=== PATIENT | female | born 1965 | race Caucasian/White ===

== ENCOUNTER 2016-09-28 12:22 | Observation (INO) ==
[2016-09-28] MEDS ORDERED: 0.9 % Sodium Chloride 1,000 ML IVC ONE (12:27)
--- NOTE | 2016-09-28 12:32 | Emergency Department Note ---
Overdose - [facility] Narrative Medical decision making narrative: Patient remains somnolent. She is protecting her airway. She does have a gag reflex intact. The patient is easily arousable upon tapping her feet and calling her name. We chose not to elevate the patient given the fact that she is protecting her airway, and is arousable. We will admit the patient to observation for further observation and psychiatric evaluation. Poison control was contacted and recommended supportive care as well as observation and psychiatric help. The patient was accepted by Georgette Pate NP. - Lab Data Lab results reviewed: Yes I reviewed the patient's lab results. Result diagrams: 09/28/16 12:53 09/28/16 12:53 Lab Results 09/28/16 09/28/16 09/28/16 Range/Units 12:38 12:38 12:38 WBC (4.3-11.1) K/mcL RBC (3.82-4.97) M/mcL Hgb (11.5-15.4) g/dL Hct (35.3-44.9) % MCV (83.0-100.0) fL MCH (28.0-33.3) pg MCHC (31.6-35.5) g/dL RDW (11.5-14.5) % Plt Count (140-400) K/mcL MPV (9.4-12.4) fL Immature Gran % (0-4) % Seg Neutrophils % % Lymphocytes % % Monocytes % % Eosinophils % % Basophils % % Neutrophils # (1.6-8.9) K/mcL Lymphocytes # (0.6-4.6) K/mcL Monocytes # (0.0-1.3) K/mcL Eosinophils # (0.0-0.6) K/mcL Basophils # (0.0-0.2) K/mcL Sodium (136-145) mEq/L Potassium (3.5-4.5) mEq/L Chloride (98-109) mEq/L Carbon Dioxide (19-29) mEq/L BUN (7-20) mg/dL Creatinine (0.57-1.11) mg/dL Est GFR ( Amer) (> 60) Est GFR (Non-Af Amer) (> 60) BUN/Creatinine Ratio (6-26) Glucose (70-99) mg/dL Calculated Osmolality (280-300) Calcium (8.6-10.8) mg/dL Total Bilirubin (0.2-1.2) mg/dL Direct Bilirubin (0.0-0.5) mg/dL Indirect Bilirubin (0.0-1.2) mg/dL AST (5-34) Units/L ALT (0-55) Units/L Alkaline Phosphatase (38-126) Units/L Serum Total Protein (6.0-8.3) g/dL Albumin (3.5-5.0) g/dL Globulin (2.4-3.5) g/dL Albumin/Globulin Ratio (1.1-2.2) Urine Color Yellow (Yellow) Urine Clarity Clear (Clear) Urine pH 6.5 (5.0-8.0) pH Units Ur Specific [place] 1.008 L (1.010-1.025) Urine Protein Negative (Neg-Trace) mg/dL Urine Glucose (UA) Normal (Normal) mg/dL Urine Ketones Negative (Negative) mg/dL Urine Blood Negative (Negative) Urine Nitrite Negative (Negative) Urine Bilirubin Negative (Negative) Urine Urobilinogen Normal (Normal) mg/dL Ur Leukocyte Esterase Negative (Negative) Urine Test Negative (Negative) Salicylates (15-30) mg/dL Urine Opiates Screen Negative (Bwmdum=258) ng/mL Acetaminophen (10-30) mcg/mL Ur Barbiturates Screen Negative (Ffgcyw=187) ng/mL Ur Phencyclidine Scrn Negative (Cutoff=25) ng/mL Ur Amphetamines Screen Negative (Jgxbjq=5287) ng/mL U Benzodiazepines Scrn Positive H (Humfot=578) ng/mL Urine Cocaine Screen Negative (Cutoff= 300) ng/mL U Marijuana (THC) Screen Negative (Cutoff = 50) ng/mL Ethyl Alcohol (0-10) mg/dL 09/28/16 09/28/16 Range/Units 12:53 12:53 WBC 5.4 (4.3-11.1) K/mcL RBC 4.27 (3.82-4.97) M/mcL Hgb 13.0 (11.5-15.4) g/dL Hct 38.9 (35.3-44.9) % MCV 91.1 (83.0-100.0) fL MCH 30.4 (28.0-33.3) pg MCHC 33.4 (31.6-35.5) g/dL RDW 13.2 (11.5-14.5) % Plt Count 179 (140-400) K/mcL MPV 10.4 (9.4-12.4) fL Immature Gran % 0.4 (0-4) % Seg Neutrophils % 74.1 % Lymphocytes % 19.4 % Monocytes % 5.0 % Eosinophils % 0.7 % Basophils % 0.4 % Neutrophils # 4.0 (1.6-8.9) K/mcL Lymphocytes # 1.1 (0.6-4.6) K/mcL Monocytes # 0.3 (0.0-1.3) K/mcL Eosinophils # 0.0 (0.0-0.6) K/mcL Basophils # 0.0 (0.0-0.2) K/mcL Sodium 140 (136-145) mEq/L Potassium 3.8 (3.5-4.5) mEq/L Chloride 109 (98-109) mEq/L Carbon Dioxide 24 (19-29) mEq/L BUN 12 (7-20) mg/dL Creatinine 0.94 (0.57-1.11) mg/dL Est GFR ( Amer) > 60 (> 60) Est GFR (Non-Af Amer) > 60 (> 60) BUN/Creatinine Ratio 13 (6-26) Glucose 130 H (70-99) mg/dL Calculated Osmolality 292 (280-300) Calcium 9.5 (8.6-10.8) mg/dL Total Bilirubin 0.2 (0.2-1.2) mg/dL Direct Bilirubin 0.1 (0.0-0.5) mg/dL Indirect Bilirubin 0.1 (0.0-1.2) mg/dL AST 13 (5-34) Units/L ALT 20 (0-55) Units/L Alkaline Phosphatase 105 (38-126) Units/L Serum Total Protein 7.4 (6.0-8.3) g/dL Albumin 3.7 (3.5-5.0) g/dL Globulin 3.7 H (2.4-3.5) g/dL Albumin/Globulin Ratio 1.0 L (1.1-2.2) Urine Color (Yellow) Urine Clarity (Clear) Urine pH (5.0-8.0) pH Units Ur Specific [place] (1.010-1.025) Urine Protein (Neg-Trace) mg/dL Urine Glucose (UA) (Normal) mg/dL Urine Ketones (Negative) mg/dL Urine Blood (Negative) Urine Nitrite (Negative) Urine Bilirubin (Negative) Urine Urobilinogen (Normal) mg/dL Ur Leukocyte Esterase (Negative) Urine Test (Negative) Salicylates < 5.0 L (15-30) mg/dL Urine Opiates Screen (Akjwiv=894) ng/mL Acetaminophen < 1.0 L (10-30) mcg/mL Ur Barbiturates Screen (Dzgdjv=120) ng/mL Ur Phencyclidine Scrn (Cutoff=25) ng/mL Ur Amphetamines Screen (Bwqzsy=9795) ng/mL U Benzodiazepines Scrn (Ktmmsg=827) ng/mL Urine Cocaine Screen (Cutoff= 300) ng/mL U Marijuana (THC) Screen (Cutoff = 50) ng/mL Ethyl Alcohol < 10 (0-10) mg/dL - EKG Data EKG attestation: Yes I reviewed and interpreted this EKG. EKG results narrative: Nonspecific ST changes. EKG shows normal: sinus rhythm, axis, intervals, QRS complexes Overdose HPI - General Chief Complaint: ED Overdose Stated Complaint: Overdose Time Seen by Provider: 09/28/16 12:27 Source: EMS Mode of arrival: EMS Limitations: altered mental status Nursing Notes Reviewed: Yes Vital Signs Reviewed: Yes - History of Present Illness HPI Narrative: 50-year-old female extensive history of overdose arrives [facility] emergency department after being found in the couch at roughly 5:30 this morning by her after the patient apparently took a handful of Xanax. The patient was asleep but was easily arousable. EMS arrived and stated the patient was easily arousable and woke her up very easily. The patient had no evidence of vomiting. The patient denies any taking any other medications. The patient states she only took a handful of Xanax was unsure of the amount. The patient has had previous overdose attempts in the past. The patient does state that she had a fight with her last night and that is why she took the medication. She is somnolent at this time but easily arousable. She is protecting her airway at this time. The patient takes 1 mg Xanax but is unsure the quantity in which she took. Pt Subjective Complaint: intentional overdose Onset (ago): hour(s) (7) Time of Ingestion: 05:00 Intent: suicide attempt Associated symptoms: depression Treatments Prior to Arrival: none - Related Data Home Medications Medication Instructions Recorded Confirmed Alprazolam [Xanax 1 MG Tablet] 1 mg PO BID PRN 09/28/16 09/28/16 Aripiprazole [Abilify] 20 mg PO DAILY 09/28/16 09/28/16 BuPROPion [Wellbutrin] 100 mg PO DAILY 09/28/16 09/28/16 Cholecalciferol (D-3) [Vitamin D] 2,000 unit PO DAILY 09/28/16 09/28/16 Desvenlafaxine Succinate [Pristiq 100 mg PO DAILY 09/28/16 09/28/16 ER] Fluticasone Propionate Nasal 50 mcg NS DAILY 09/28/16 09/28/16 [Flonase] Fluticasone/Salmeterol [Advair 1 puff IH BID 09/28/16 09/28/16 250-50 Diskus] Gabapentin [Neurontin] 300 mg PO QAM 09/28/16 09/28/16 Gabapentin [Neurontin] 600 mg PO HS 09/28/16 09/28/16 Lamotrigine [Lamictal] 100 mg PO HS 09/28/16 09/28/16 Levothyroxine [Synthroid] 50 mcg PO DAILY 09/28/16 09/28/16 Meloxicam [Mobic] 15 mg PO DAILY 09/28/16 09/28/16 Montelukast [Singulair] 10 mg PO DAILY 09/28/16 09/28/16 Propranolol [Inderal] 10 mg PO TID 09/28/16 09/28/16 Quetiapine Fumarate [SEROquel] 100 mg PO HS 09/28/16 09/28/16 Ranitidine HCl [Acid [employer]] 150 mg PO BID 09/28/16 09/28/16 Topiramate [Topamax] 100 mg PO BID 09/28/16 09/28/16 Allergies Allergy/AdvReac Type Severity Reaction Status Date / Time aspirin Allergy Hives Verified 09/28/16 12:36 Penicillins Allergy Anaphylaxis Verified 09/28/16 12:36 Limitations: ROS unobtainable due to patients medical condition Past Medical History - Past Medical History Attestation: Yes The following information was validated with the patient. Medical history: Reports: asthma Surgical history: Reports: hysterectomy, other Psychiatric history: Reports: anxiety, bipolar, depression, prior suicide attempt - Social History Smoking Status: Current every day smoker Smokeless Tobacco Status: Yes Alcohol use: Reports: none Drug use: Reports: none Physical Exam Physical Exam: General: no acute distress, not lethargic, patient is somnolent. Patient is protecting airway this time. She is following commands and answering some questions correctly. HEENT: Head normal inspection, atraumatic, PERRLA, oropharynx grossly intact and normal, trachea midline, no JVD Chest: Nontraumatic, nontender, normal chest rise CV: RRR with no murmurs, rubs, gallops Respiratory: Lungs clear to auscultation bilaterally, no rales, rhonchi, wheezes. Abdomen: Normal inspection, Normal bowel sounds 4 quadrants, nontender to palpation : Patient deferred Extremities: Normal inspection, full range of motion, appropriate pulses, capillary refill under 2 seconds Neurological: Patient somnolent, cranial nerves II through XII grossly intact, GCS 13 for eyes to voice and speech. Skin: Warm, intact, no rashes noted Course - Reevaluation(s) Reevaluation #1: Spoke with Dany at [facility]. No further recommendations other than supportive care and basic laboratory tests. Time: 13:13 Vital Signs Temperature 97.7 F 09/28/16 12:24 Pulse Rate 71 09/28/16 12:24 Respiratory Rate 16 09/28/16 12:24 Blood Pressure 134/95 09/28/16 12:24 O2 Sat by Pulse Oximetry 100 09/28/16 12:24 Temperature 97.7 F 09/28/16 12:24 Pulse Rate 74 09/28/16 14:46 Respiratory Rate 15 09/28/16 14:46 Blood Pressure 133/100 09/28/16 14:46 O2 Sat by Pulse Oximetry 100 09/28/16 14:46 Oxygen Delivery Oxygen Delivery Nasal Cannula Disposition Clinical Impression: Benzodiazepine overdose Qualifiers: Encounter type: initial encounter Injury intent: intentional self-harm Qualified Code(s): T42.4X2A - Poisoning by benzodiazepines, intentional self- harm, initial encounter Disposition: Admitted As Inpatient Condition: Undetermined Referrals: NO,PCP [Primary Care Provider] - Forms: ED Satisfaction Letter Time of Disposition: 15:06 Attestation Statement - Attestation Attestation: I examined this patient and my medical decision-making was reviewed with the INVESTMENT EXECUTIVE/PA/Advanced Practice Nurse/Resident Physician. I agree with the documented findings, disposition and treatment plan as described except to the extent set forth below. Patient to the emergency department with a chief complaint of intentional overdose. Per EMS this is her fifth suicide attempt. Took "a handful" of Xanax. On exam she is awake. Drowsy but arousable. Heart regular lungs clear. Plan. Supportive care. We will admit.
[2016-09-28 13:01] LABS: Amphetamine Screen,Urine Negative ng/mL (Cutoff=1000); Barbiturate Screen,Urine Negative ng/mL (Cutoff=200); Benzodiazepines Screen,Urine Positive ng/mL (Cutoff=200); Cannabinoid Screen,Urine Negative ng/mL (Cutoff = 50); Cocaine Screen,Urine Negative ng/mL (Cutoff= 300); Opiate Screen,Urine Negative ng/mL (Cutoff=300); Phencyclidine Screen,Urine Negative ng/mL (Cutoff=25)
[2016-09-28 13:04] LABS: Bilirubin,Urine Negative (Negative); Blood,Urine Negative (Negative); Clarity,Urine Clear (Clear); Color,Urine Yellow (Yellow); Glucose,Urine (UA) Normal (Normal); Ketones,Urine Negative (Negative); Leukocyte Esterase,Urine Negative (Negative); Nitrite,Urine Negative (Negative); PH,Urine 6.5 pH Units (5.0-8.0); Protein,Urine Negative (Neg-Trace); Specific Gravity,Urine 1.008 (1.010-1.025); Urobilinogen,Urine Normal (Normal)
[2016-09-28 13:06] LABS: Basophils % 0.4 %; Eosinophils % 0.7 %; Hematocrit 38.9 % (35.3-44.9); Immature Granulocytes % 0.4 % (0-4); Lymphocytes # 1.1 K/mcL (0.6-4.6); Lymphocytes % 19.4 %; Mean Corpuscular HGB Conc 33.4 g/dL (31.6-35.5); Mean Corpuscular Hemoglobin 30.4 pg (28.0-33.3); Mean Corpuscular Volume 91.1 fL (83.0-100.0); Mean Platelet Volume 10.4 fL (9.4-12.4); Monocytes # 0.3 K/mcL (0.0-1.3); Platelet Count 179 K/mcL (140-400); Red Blood Count 4.27 M/mcL (3.82-4.97); Red Cell Distribution Width 13.2 % (11.5-14.5); Segmented Neutrophils % 74.1 %
[2016-09-28 13:26] LABS: Alanine Aminotransferase 20 Units/L (0-55); Albumin 3.7 g/dL (3.5-5.0); Alkaline Phosphatase 105 Units/L (38-126); Aspartate Amino Transferase 13 Units/L (5-34); BUN/Creatinine Ratio 13 (6-26); Bilirubin,Direct 0.1 mg/dL (0.0-0.5); Bilirubin,Indirect 0.1 mg/dL (0.0-1.2); Bilirubin,Total 0.2 mg/dL (0.2-1.2); Blood Urea Nitrogen 12 mg/dL (7-20); Calcium 9.5 mg/dL (8.6-10.8); Carbon Dioxide 24 mEq/L (19-29); Chloride 109 mEq/L (98-109); Globulin 3.7 g/dL (2.4-3.5); Glucose 130 mg/dL (70-99); Osmolality,Calculated 292 (280-300); Potassium 3.8 mEq/L (3.5-4.5); Sodium 140 mEq/L (136-145); Total Protein 7.4 g/dL (6.0-8.3); eGFR For African Americans > 60 (> 60); eGFR For Non-African Americans > 60 (> 60)
[2016-09-28 13:28] LABS: Acetaminophen < 1.0 mcg/mL (10-30); Ethanol < 10 mg/dL (0-10); Salicylate < 5.0 mg/dL (15-30)
[2016-09-28] MEDS ORDERED: Naloxone 0.4 MG/ML INJ IVP PRN (16:01)
[2016-09-28] MEDS ORDERED: Ondansetron 4 MG/2 ML VIAL IVP PRN (16:01)
--- NOTE | 2016-09-28 16:44 | Internal Med History&Physical ---
<PolinamatthieujeffManuel simmons - Last Filed: 09/28/16 18:30> Date of Encounter: 09/28/16 Time of Encounter: 16:20 Assessment and Plan (1) Benzodiazepine overdose Current visit: Yes Status: Acute Pt. will receive supportive care with emphasis on patent airway and O2 administration with titration if SpO2 falls below 92%. Patient placed as NPO due to current altered mental status and risk for aspiration. Aspiration precautions initiated. Falls prevention precautions initiated. Patient's meds held. Sitter ordered for patient due to suicidal ideations and attempt. Routine EKG monitoring ordered for 09/29/16 in a.m. Psych consult ordered due to patient' s history of five suicide attempts. Qualifiers: Encounter type: initial encounter Injury intent: intentional self-harm Qualified Code(s): T42.4X2A - Poisoning by benzodiazepines, intentional self- harm, initial encounter (2) Suicidal ideations Current visit: Yes Status: Chronic Past history of five suicide attempts. Patient placed on suicide watch and psych consult ordered. (3) Anxiety associated with depression Current visit: Yes Status: Chronic Pt. has past history of anxiety, depression, bipolar disorder, and suicidal ideations/attempts. Pt. will be managed by psych team/provider(s). Internal Medicine - H&P: HPI Chief complaint: Overdose Admitted From: Emergency Dept Plans for Post Hospital Care: Transfer Psych Facility History of present illness: Jana Allen is a 50 year-old female with a history of anxiety, bipolar depression, depression, and prior suicide attempt who presents from the ED to observation admission status on 09/28/16 due to overdose on benzodiazepines. Patient's pupils equal, round, reactive to light and accommodation. Upon initial encounter for assessment, patient presents with altered mental status and somnolence so limited information was able to be obtained during the initial interview. Patient reports she does not recall what happened that caused her to come to the hospital. Pt. was able to correctly state her name, her age, and what month it is. Pt. has been placed on 2L of O2 with titration if SpO2 falls below 92%. IV fluids (0.9% NS) ordered at 75 mL/hr. Cardiac monitoring has been ordered due to overdose status. Pt. has been placed as NPO and all meds have been held until her lethargy and somnolence subside and further assessment can be completed. Pt. is also under suicide observation with an ordered sitter due to overdose. Consult for psych evaluation ordered. New EKG ordered for 09/29/16 in a.m. Discussed case with Dr. Owen. Past Med Surg Social Fam HX - Past Medical History Source: obtained from family Medical history: asthma, GERD Psychiatric history: anxiety, bipolar, depression, prior suicide attempt - Past Surgical History Surgical History: hysterectomy, other - Social History Smoking Status: Current every day smoker Packs per day: 1/4 to 1/2 pack per day Smokeless Tobacco Status: Yes Alcohol use: none Drug use: none Occupational status: unemployed Current living situation: With Family Activity Level: Independent ambulation Recent Out of Country Travel Within the Last 8 Weeks: No Exposure or Possible Exposure to Illness During Travel: No - Family History Mother Living Status: Hx Family Endocrine Disorder: Yes (kidney failure) Internal Medicine - H&P: Meds Alprazolam [Xanax 1 MG Tablet] 1 mg PO BID PRN 09/28/16 [History] Aripiprazole [Abilify] 20 mg PO DAILY 09/28/16 [History] BuPROPion [Wellbutrin] 100 mg PO DAILY 09/28/16 [History] Cholecalciferol (D-3) [Vitamin D] 2,000 unit PO DAILY 09/28/16 [History] Desvenlafaxine Succinate [Pristiq ER] 100 mg PO DAILY 09/28/16 [History] Fluticasone Propionate Nasal [Flonase] 50 mcg NS DAILY 09/28/16 [History] Fluticasone/Salmeterol [Advair 250-50 Diskus] 1 puff IH BID 09/28/16 [History] Gabapentin [Neurontin] 300 mg PO QAM 09/28/16 [History] Gabapentin [Neurontin] 600 mg PO HS 09/28/16 [History] Lamotrigine [Lamictal] 100 mg PO HS 09/28/16 [History] Levothyroxine [Synthroid] 50 mcg PO DAILY 09/28/16 [History] Meloxicam [Mobic] 15 mg PO DAILY 09/28/16 [History] Montelukast [Singulair] 10 mg PO DAILY 09/28/16 [History] Propranolol [Inderal] 10 mg PO TID 09/28/16 [History] Quetiapine Fumarate [SEROquel] 100 mg PO HS 09/28/16 [History] Ranitidine HCl [Acid [place]] 150 mg PO BID 09/28/16 [History] Topiramate [Topamax] 100 mg PO BID 09/28/16 [History] Allergies aspirin Allergy (Verified 09/28/16 12:36) Hives Penicillins Allergy (Verified 09/28/16 12:36) Anaphylaxis ROS unobtainable: due to mental status All Systems PM: A 10-system review of systems was performed and is negative for pertinent findings except as documented above in the HPI. - Constitutional Constitutional: lethargy Additional comments: Patient currently exhibits lethargy and somnolence due to overdose. - EENT Additional comments: Pt. eyes examined and positive for PERRLA. Additional comments: Pt. exhibits decreased ability to hear due to lethargy and somnolence related to overdose. Nose, mouth and throat: no dysphagia, no nasal discharge, no neck pain, no sore throat Additional comments: Pt. soft-spoken at the present time due to lethargy and somnolence related to overdose. - Cardiovascular Cardiovascular ROS IM: no chest pain, no diaphoresis, no dyspnea, no lightheadedness, no palpitations, no syncope Additional comments: Cardiovascular examination revealed no abnormal heart sounds or arrhythmias. - Respiratory Additional comments: Pt. breathing even, shallow, and unlabored due to lethargy and somnolence related to overdose. Pt. placed on 2L of O2 with titration order if SpO2 falls below 92%. Aspiration protocol ordered. Pt. reports occasional SOB with exertion. - Gastrointestinal Gastrointestinal: no abdominal pain, no diarrhea, no hematemesis, no hematochezia, no melena, no nausea, no vomiting - Genitourinary Genitourinary: no change in urinary stream, no dysuria, no flank pain, no hematuria Additional comments: Urinary catheter placed due to altered mental status related to overdose. - Musculoskeletal Musculoskeletal ROS IM: no numbness, no tingling - Integumentary Integumentary IM: no rash, no unusual bruising - Neurological Neurological ROS: abnormal hearing, abnormal speech, lack of coordination, restless legs, weakness Additional comments: Abnormal speech and hearing deficits due to overdose and current altered mental status. - Psychiatric Psychiatric: anxiety, depression, suicidal ideation Additional comments: Patient has positive history of anxiety, depression, bipolar depression, and previous suicidal ideations and attempts. Pt. has attempted suicide a total of five times within the past ten years. These attempts have consisted of two overdoses and three self-harm attempts by cutting her wrists. Patient's last suicide attempt was four years ago when she slit her wrists. Previous four attempts where done when others were present or nearby. Current attempt was done when she was alone at home. - Endocrine Endocrine IM: as per HPI - Hematologic/Lymphatic Hematologic/Lymphatic: no easy bruising - Allergic/Immunologic Allergic/Immunologic: as per HPI Additional comments: Pt. reports she has asthma during summer months and uses inhaler PRN. - Constitutional Vitals: Temp Pulse Resp BP Pulse Ox 97.7 F 71 16 124/70 98 09/28/16 15:46 09/28/16 15:46 09/28/16 15:46 09/28/16 15:46 09/28/16 15:46 General appearance: Present: A&O X 3, no acute distress - Head Head exam: Present: atraumatic, normocephalic - Eye Eye exam: Present: PERRL, conjuntiva pink, sclera anicteric Pupils: Present: PERRL - Expanded ENT Exam Mouth exam: Present: muffled voice, tongue normal Teeth exam: Present: normal external inspection - Neck Neck exam general surgery: Present: supple, trachea midline. Absent: lymphadenopathy - Respiratory Respiratory exam: Present: CTAB. Absent: accessory muscle use, rales, rhonchi, wheezes - Cardiovascular Cardiovascular exam: Present: RRR, +S1, +S2. Absent: diastolic murmur, gallop, rubs, systolic murmur - GI/Abdominal GI/Abdominal exam: Present: normal bowel sounds, soft, no peritoneal signs. Absent: distended, tenderness - Rectal Rectal exam: Present: deferred - Extremities Exam Extremities exam: Present: radial pulses palpable and symetrical - Neurological Exam Neurological exam: Present: oriented X3 Additional comments: Pt. appears somnolent due to overdose. Answers some questions without assistance. A&O x3. - Expanded Neurological Exam Neurological exam expanded: Present: protecting the airway - Psychiatric Psychiatric exam: Present: suicidal ideation - Skin Skin exam: Present: dry, intact - Other Additional findings: Patient's responses to assessment and questions is limited due to altered mental status and somnolence. Family was present to answer questions as well. Internal Med - H&P Results - Labs CBC & Chem 7: 09/28/16 12:53 09/28/16 12:53 - EKG Data EKG shows normal: sinus rhythm - EKG Data Prior EKG available for review: no EKG comments: 09/28/16 18:02 Sinus rhythm with nonspecific t-wave abnormality. Repeat EKG ordered for a.m. - VTE Reasons for not Prescribing Prophylaxis: Treatment not Indicated - Low risk for VTE <Herson Owen - Last Filed: 09/28/16 19:05> Internal Medicine - H&P: HPI History of present illness: Ms. Allen is a 50 year old female All Systems PM: A 10-system review of systems was performed and is negative for pertinent findings except as documented above in the HPI. - Constitutional Vitals: Temp Pulse Resp BP Pulse Ox 98.0 F 73 14 111/75 99 09/28/16 18:30 09/28/16 18:30 09/28/16 18:30 09/28/16 18:30 09/28/16 18:30 Internal Med - H&P Results - Labs CBC & Chem 7: 09/28/16 12:53 09/28/16 12:53 - Attending Attestation I examined this patient and my medical decision-making was reviewed with the Advanced Practice Nurse on 09/28/16. I agree with the documented findings, disposition and treatment plan as described except to the extent set forth below. Ms. Allen is a 50 y/o female with hx of multiple prior suicide attempts brought to ED after taking OD of Xanax. Pt currently is arousable but will not speak with me. According to chart she was attempting to commit suicide. Exam Arousable Mucus membranes dry Heart reg Lungs clear I/P 1. OD of Xanax 2. Suicide attempt Further diagnoses and plan as detailed above.
[2016-09-28] MEDS: 0.9 % Sodium Chloride 1,000 ML IVC SCH (17:12)
[2016-09-29 04:52] LABS: Basophils % 0.4 %; Eosinophils # 0.1 K/mcL (0.0-0.6); Eosinophils % 1.3 %; Hematocrit 35.3 % (35.3-44.9); Immature Granulocytes % 0.4 % (0-4); Lymphocytes # 1.4 K/mcL (0.6-4.6); Mean Corpuscular HGB Conc 31.2 g/dL (31.6-35.5); Mean Corpuscular Hemoglobin 28.8 pg (28.0-33.3); Mean Corpuscular Volume 92.4 fL (83.0-100.0); Mean Platelet Volume 10.3 fL (9.4-12.4); Monocytes # 0.4 K/mcL (0.0-1.3); Monocytes % 8.1 %; Neutrophils # 3.4 K/mcL (1.6-8.9); Platelet Count 165 K/mcL (140-400); Red Blood Count 3.82 M/mcL (3.82-4.97); Red Cell Distribution Width 13.2 % (11.5-14.5); Segmented Neutrophils % 63.8 %
[2016-09-29 05:06] LABS: BUN/Creatinine Ratio 16 (6-26); Blood Urea Nitrogen 12 mg/dL (7-20); Calcium 8.7 mg/dL (8.6-10.8); Carbon Dioxide 23 mEq/L (19-29); Chloride 111 mEq/L (98-109); Glucose 95 mg/dL (70-99); Osmolality,Calculated 292 (280-300); Potassium 3.5 mEq/L (3.5-4.5); Sodium 141 mEq/L (136-145); eGFR For African Americans > 60 (> 60); eGFR For Non-African Americans > 60 (> 60)
[2016-09-29] MEDS: 0.9 % Sodium Chloride 1,000 ML IVC SCH (06:54)
[2016-09-29 11:33] VITALS: BP 92/64
--- NOTE | 2016-09-29 11:43 | Consult Note ---
Date of Encounter: 09/29/16 Time of Encounter: 11:30 Assessment & Recommendation (1) Major depressive disorder, recurrent episode Current visit: Yes Status: Acute Assessment & Recommendation: Patient has a long-standing history of depression with multiple suicide attempts. Given that the circumstances are unclear and the patient seems to be less than forthcoming about her reasons behind taking the meds I would recommend admission to 1 a for observation. Continue sitter until patient can be transferred down to the psychiatric unit. Qualifiers: Major depression episode severity: moderate Qualified Code(s): F33.1 - Major depressive disorder, recurrent, moderate (2) Anxiety Current visit: Yes Status: Chronic Assessment & Recommendation: Consider restarting Xanax at lower dose, 0.5 twice a day the patient does not have withdrawal but we prevent patient having oversedation considering she overdosed on this medicine. (3) Personality disorder Current visit: Yes Status: Chronic Assessment & Recommendation: We will encourage patient to attend groups when on the unit. Likely contact patient's outpatient provider for more information on Friday when the office is open. History of Present Illness Patient: new to practice Requesting Physician: Lacie Fagan Reason for consult: Overdose History of present illness: Ms. Allen is a 50 year old female CC: Lacie Fagan Past Med Surg Social Fam HX - Past Medical History Medical history: asthma - Past Psychiatric History Psychiatric history: Reports: depression, prior suicide attempt, previous psychiatric hospitalization Past psychiatric history details: Patient is currently in treatment at the [facility]. She does have a DrKyle mullins who prescribes all of her psych meds. She reports taking Seroquel, Pristiq, propanolol. As well as Xanax. She has a previous psychiatric admission in multiple suicide attempts in the past. Last admission was in 2010. At that point she attempted to cut her wrists as well as overdose. Today she presents after a suicide attempt. She is on the medical floor has been cleared medically for an overdose of an unknown amount of Xanax. Patient reports that she did have an argument with her about the finances. They have been struggling financially recently and patient reports that her had had a few drinks and they were yelling at each other. Patient and both report no physical violence. Patient states that she was upset by this argument but she does not remember feeling suicidal or overly depressed. She does not remember taking the pills. Patient denies suicidal ideation now. She feels her medications worked fairly well. She would prefer not to go to the psychiatric floor at this time. However, patient cannot really verbalize what has changed since her argument with her . Of note, patient's reported meds are different from the med reported on her med list. OARRS report was pulled by staff on 3B and reviewed by this provider. It does appear appropriate and patient is being prescribed 1 mg of Xanax twice a day. Spoke with who is present at the hospital with the patient. He is concerned about patient's action and well aware of her past psychiatric history. He denies that the patient was making any kind of statements that she would hurt herself. She does know that she has attempted in the past and has required psychiatric admission. He is upset because he thinks the argument may have led to her hurting herself. He does report that he is not sure if the Xanax is working appropriately because when she takes 2 a day she still feels anxious but when she was taking 3 a day she was overly sedated. reports that the patient usually talks with her daughters all morning on the phone until he gets back from work at noon. He found her because his daughter called to let him know that they were out of contact which is abnormal for the patient. came home early to find her collapse next to the dryer. Family psychiatric history: No Family History of Suicide: None - Past Surgical History Surgical History: hysterectomy, other - Social History Smoking Status: Current every day smoker Smokeless Tobacco Status: Yes Alcohol use: none Drug use: none - Family History Mother Living Status: Hx Family Endocrine Disorder: Yes (kidney failure) Medications & Allergies Alprazolam [Xanax 1 MG Tablet] 1 mg PO BID PRN 09/28/16 [History] Aripiprazole [Abilify] 20 mg PO DAILY 09/28/16 [History] BuPROPion [Wellbutrin] 100 mg PO DAILY 09/28/16 [History] Cholecalciferol (D-3) [Vitamin D] 2,000 unit PO DAILY 09/28/16 [History] Desvenlafaxine Succinate [Pristiq ER] 100 mg PO DAILY 09/28/16 [History] Fluticasone Propionate Nasal [Flonase] 50 mcg NS DAILY 09/28/16 [History] Fluticasone/Salmeterol [Advair 250-50 Diskus] 1 puff IH BID 09/28/16 [History] Gabapentin [Neurontin] 300 mg PO QAM 09/28/16 [History] Gabapentin [Neurontin] 600 mg PO HS 09/28/16 [History] Lamotrigine [Lamictal] 100 mg PO HS 09/28/16 [History] Levothyroxine [Synthroid] 50 mcg PO DAILY 09/28/16 [History] Meloxicam [Mobic] 15 mg PO DAILY 09/28/16 [History] Montelukast [Singulair] 10 mg PO DAILY 09/28/16 [History] Propranolol [Inderal] 10 mg PO TID 09/28/16 [History] Quetiapine Fumarate [SEROquel] 100 mg PO HS 09/28/16 [History] Ranitidine HCl [Acid Circus Laborer] 150 mg PO BID 09/28/16 [History] Topiramate [Topamax] 100 mg PO BID 09/28/16 [History] Allergies aspirin Allergy (Verified 09/28/16 12:36) Hives Penicillins Allergy (Verified 09/28/16 12:36) Anaphylaxis Review of Systems Constitutional: Denies: fever, chills, weakness, weight change Eyes: Denies: eye pain, vision change Ears, Nose, Throat: Denies: ear pain, throat pain, dental pain, hearing loss, congestion Cardiovascular: Denies: chest pain, palpitations, dyspnea on exertion Respiratory: Denies: cough, dyspnea, wheezes Gastrointestinal: Denies: abdominal pain, nausea, vomiting, diarrhea, constipation Genitourinary male: Denies: urgency, dysuria, frequency, genital lesions Genitourinary female: Denies: urgency, dysuria, frequency, abnormal menses, dyspareunia Musculoskeletal: Denies: joint swelling, joint pain Integumentary: Denies: rash, lesions, pruritus Neurological: Denies: headache, weakness, numbness, memory loss Psychiatric: Reports: depression, anxiety. Denies: abnormal sleep pattern, suicidal ideation, homicidal ideation, auditory hallucinations, visual hallucinations, anhedonia, difficulty concentrating, hopelessness, irritability , mood swings, panic attacks Endocrine: Denies: fatigue, heat or cold intolerance Hematologic/Lymphatic: Denies: easy bruising, lymphadenopathy Allergic/Immunologic: Denies: urticaria, itchy eyes Mental Status Exam Patient orientation: Yes Person, Yes Time, Yes Place Level of alertness: Alert Patient appearance: Unkempt Behavior: cooperative, nervous Psychomotor activity: Normal Eye contact: Minimal Contact Mood description: Euthymic/stable Affect description: dysphoric Speech pattern: Normal rate, Normal rhythm, Normal tone Speech volume: Soft/Quiet Thought process: Intact, Linear Thought content: No Suicidal ideation, No Homicidal ideation Perceptual disturbances: No Auditory hallucinations, No Visual hallucinations Attention span: Capable of Focused Attention Memory description: Grossly Intact Patient reliability: Reliable Historian Intelligence estimate: Average Judgment: Limited Insight: Partial Results - Vital Signs Vital signs: Temp Pulse Resp BP Pulse Ox 98.0 F 85 17 92/64 98 09/29/16 11:31 09/29/16 11:31 09/29/16 11:31 09/29/16 11:31 09/29/16 11:31 - Labs Labs: Laboratory Last Values WBC 5.3 K/mcL (4.3-11.1) 09/29/16 04:01 RBC 3.82 M/mcL (3.82-4.97) 09/29/16 04:01 Hgb 11.0 g/dL (11.5-15.4) L D 09/29/16 04:01 Hct 35.3 % (35.3-44.9) 09/29/16 04:01 MCV 92.4 fL (83.0-100.0) 09/29/16 04:01 MCH 28.8 pg (28.0-33.3) 09/29/16 04:01 MCHC 31.2 g/dL (31.6-35.5) L 09/29/16 04:01 RDW 13.2 % (11.5-14.5) 09/29/16 04:01 Plt Count 165 K/mcL (140-400) 09/29/16 04:01 MPV 10.3 fL (9.4-12.4) 09/29/16 04:01 Immature Gran % 0.4 % (0-4) 09/29/16 04:01 Seg Neutrophils % 63.8 % 09/29/16 04:01 Lymphocytes % 26.0 % 09/29/16 04:01 Monocytes % 8.1 % 09/29/16 04:01 Eosinophils % 1.3 % 09/29/16 04:01 Basophils % 0.4 % 09/29/16 04:01 Neutrophils # 3.4 K/mcL (1.6-8.9) 09/29/16 04:01 Lymphocytes # 1.4 K/mcL (0.6-4.6) 09/29/16 04:01 Monocytes # 0.4 K/mcL (0.0-1.3) 09/29/16 04:01 Eosinophils # 0.1 K/mcL (0.0-0.6) 09/29/16 04:01 Basophils # 0.0 K/mcL (0.0-0.2) 09/29/16 04:01 Sodium 141 mEq/L (136-145) 09/29/16 04:01 Potassium 3.5 mEq/L (3.5-4.5) 09/29/16 04:01 Chloride 111 mEq/L (98-109) H 09/29/16 04:01 Carbon Dioxide 23 mEq/L (19-29) 09/29/16 04:01 BUN 12 mg/dL (7-20) 09/29/16 04:01 Creatinine 0.76 mg/dL (0.57-1.11) 09/29/16 04:01 Est GFR ( Amer) > 60 (> 60) 09/29/16 04:01 Est GFR (Non-Af Amer) > 60 (> 60) 09/29/16 04:01 BUN/Creatinine Ratio 16 (6-26) 09/29/16 04:01 Glucose 95 mg/dL (70-99) 09/29/16 04:01 POC Glucose 104 (58-89) H 09/29/16 06:18 Calculated Osmolality 292 (280-300) 09/29/16 04:01 Calcium 8.7 mg/dL (8.6-10.8) 09/29/16 04:01 Total Bilirubin 0.2 mg/dL (0.2-1.2) 09/28/16 12:53 Direct Bilirubin 0.1 mg/dL (0.0-0.5) 09/28/16 12:53 Indirect Bilirubin 0.1 mg/dL (0.0-1.2) 09/28/16 12:53 AST 13 Units/L (5-34) 09/28/16 12:53 ALT 20 Units/L (0-55) 09/28/16 12:53 Alkaline Phosphatase 105 Units/L (38-126) 09/28/16 12:53 Serum Total Protein 7.4 g/dL (6.0-8.3) 09/28/16 12:53 Albumin 3.7 g/dL (3.5-5.0) 09/28/16 12:53 Globulin 3.7 g/dL (2.4-3.5) H 09/28/16 12:53 Albumin/Globulin Ratio 1.0 (1.1-2.2) L 09/28/16 12:53 Urine Color Yellow (Yellow) 09/28/16 12:38 Urine Clarity Clear (Clear) 09/28/16 12:38 Urine pH 6.5 pH Units (5.0-8.0) 09/28/16 12:38 Ur Specific [place] 1.008 (1.010-1.025) L 09/28/16 12:38 Urine Protein Negative mg/dL (Neg-Trace) 09/28/16 12:38 Urine Glucose (UA) Normal mg/dL (Normal) 09/28/16 12:38 Urine Ketones Negative mg/dL (Negative) 09/28/16 12:38 Urine Blood Negative (Negative) 09/28/16 12:38 Urine Nitrite Negative (Negative) 09/28/16 12:38 Urine Bilirubin Negative (Negative) 09/28/16 12:38 Urine Urobilinogen Normal mg/dL (Normal) 09/28/16 12:38 Ur Leukocyte Esterase Negative (Negative) 09/28/16 12:38 Urine Test Negative (Negative) 09/28/16 12:38 Salicylates < 5.0 mg/dL (15-30) L 09/28/16 12:53 Urine Opiates Screen Negative ng/mL (Uiaeyq=715) 09/28/16 12:38 Acetaminophen < 1.0 mcg/mL (10-30) L 09/28/16 12:53 Ur Barbiturates Screen Negative ng/mL (Pwtocn=391) 09/28/16 12:38 Ur Phencyclidine Scrn Negative ng/mL (Cutoff=25) 09/28/16 12:38 Ur Amphetamines Screen Negative ng/mL (Mjipqc=8920) 09/28/16 12:38 U Benzodiazepines Scrn Positive ng/mL (Bflyde=058) H 09/28/16 12:38 Urine Cocaine Screen Negative ng/mL (Cutoff= 300) 09/28/16 12:38 U Marijuana (THC) Screen Negative ng/mL (Cutoff = 50) 09/28/16 12:38 Ethyl Alcohol < 10 mg/dL (0-10) 09/28/16 12:53 Consult Discharge Plan - Plan Referrals: NO,PCP [Primary Care Provider] -
--- NOTE | 2016-09-29 13:42 | Discharge Summary ---
Date of Encounter: 09/29/16 Time of Encounter: 10:30 - Discharge Diagnosis (1) Benzodiazepine overdose Priority: Primary Status: Acute Comments: Patient was alert and oriented 3 during this admission. She states she does not remember overdosing or what happened afterwards. She denied active suicidal or homicidal ideations at time of discharge, sending down to inpatient psychiatry. Qualifiers: Encounter type: initial encounter Injury intent: intentional self-harm Qualified Code(s): T42.4X2A - Poisoning by benzodiazepines, intentional self- harm, initial encounter (2) Suicidal ideations Priority: Primary Status: Resolved Comments: Patient denied suicidal ideation at time of discharge, but states she has attempted suicide several times in the past most recently 4-5 years ago. (3) Anxiety associated with depression Priority: Secondary Status: Chronic (4) History of attempted suicide Priority: Secondary Status: Chronic (5) Major depressive disorder, recurrent episode Priority: Primary Status: Acute Qualifiers: Major depression episode severity: moderate Qualified Code(s): F33.1 - Major depressive disorder, recurrent, moderate (6) Anxiety Priority: Secondary Status: Chronic (7) Personality disorder Priority: Secondary Status: Chronic - Discharge Medications Home Medications: Alprazolam [Xanax 1 MG Tablet] 1 mg PO BID PRN 09/28/16 [History] Aripiprazole [Abilify] 20 mg PO DAILY 09/28/16 [History] BuPROPion [Wellbutrin] 100 mg PO DAILY 09/28/16 [History] Cholecalciferol (D-3) [Vitamin D] 2,000 unit PO DAILY 09/28/16 [History] Desvenlafaxine Succinate [Pristiq] 100 mg PO DAILY 09/28/16 [History] Fluticasone Propionate Nasal [Flonase] 50 mcg NS DAILY 09/28/16 [History] Fluticasone/Salmeterol [Advair 250-50 Diskus] 1 puff IH BID 09/28/16 [History] Gabapentin [Neurontin] 300 mg PO QAM 09/28/16 [History] Gabapentin [Neurontin] 600 mg PO HS 09/28/16 [History] Lamotrigine [Lamictal] 100 mg PO HS 09/28/16 [History] Levothyroxine [Synthroid] 50 mcg PO DAILY 09/28/16 [History] Meloxicam [Mobic] 15 mg PO DAILY 09/28/16 [History] Montelukast [Singulair] 10 mg PO DAILY 09/28/16 [History] Propranolol [Inderal] 10 mg PO TID 09/28/16 [History] Quetiapine Fumarate [Seroquel] 100 mg PO HS 09/28/16 [History] Ranitidine HCl [Acid Plastic Surgery Technician] 150 mg PO BID 09/28/16 [History] Topiramate [Topamax] 100 mg PO BID 09/28/16 [History] Allergies/Adverse Reactions: Allergies aspirin Allergy (Verified 09/28/16 12:36) Hives Penicillins Allergy (Verified 09/28/16 12:36) Anaphylaxis Procedures/tests Complete & Pending: Procedures Performed prior 72 hours Category Date Time Status ECG 12 lead ECG [ECG] AM 0600 Y 09/29/16 06:00 Completed Date of admission: 09/28/16 15:15 Primary care physician: PCP NO Consults: 09/28/16 16:05 Consult to Psychiatry [CONS] Routine Consulting Provider: Psychiatry [place] Reason for Consult: Overdose, suicidal ideations Time Notified: 16:05 Call Completed: Yes Discharging clinician: Lacie Broussard Anticipated date of discharge: 09/29/16 (sending to inpatient psych 1A) - Patient Status Disposition: Transfer Psychiatric Hosp Condition: Fair Functional capacity at discharge: independent ambulation Overall status at discharge: patient is progressing back to baseline - Discharge Instructions Follow Up With: Melida Montez MD [Partnered Physician] - Additional Instructions: Follow-up with primary care provider and psychiatrist as needed - Diet and Activity Activity: increase activity as tolerated Diet: regular diet Hospital course: Ms. Allen is a 50 year old female with past medical history bipolar disorder, multiple prior suicide attempts. Patient presented to the emergency department chief complaint altered mental status secondary to overdose on her Xanax. Patient was somnolent upon presentation and was admitted to the hospitalist service for further evaluation and management. She was alert and oriented 3 during her admission. She denied current or active suicidal ideations but states she did not remember what happened in the events leading up to her hospitalization. Her was at the bedside and stated that he had drunk the night before and "got mean" and they proceeded to fight about financial issues. At that point, she took a handful of Xanax. Her states that she has attempted suicide multiple times in the past with the most recent being 4-5 years ago. She was able to tolerate a regular diet during this admission and denied active suicidal ideations. She was seen and evaluated by psychiatry and now that she was medically cleared, she will be transferred down to inpatient psychiatric unit. Psychiatry also recommended decreasing her Xanax dosage to 0.5 mg twice a day given that she appeared slightly oversedated on examination- no new prescription written at discharge as she recently filled 60 tablets- OARRS report checked. She was discharged on inpatient psychiatry in stable condition. - Time Spent with Patient Total time spent providing and/or coordinating discharge services: - Constitutional Vitals: Temp Pulse Resp BP Pulse Ox 98.0 F 85 17 92/64 98 09/29/16 11:31 09/29/16 11:31 09/29/16 11:31 09/29/16 11:31 09/29/16 11:31 General appearance: Present: A&O X 3, pleasant, no acute distress, answers questions appropriately - Head Head exam: Present: atraumatic, normocephalic - Eye Eye exam: Present: PERRL, conjuntiva pink, sclera anicteric Pupils: Present: PERRL - Neck Neck exam general surgery: Present: supple, trachea midline. Absent: lymphadenopathy - Respiratory Respiratory exam: Present: CTAB. Absent: accessory muscle use, rales, respiratory distress, rhonchi, wheezes - Cardiovascular Cardiovascular exam: Present: RRR, +S1, +S2. Absent: diastolic murmur, gallop, rubs, systolic murmur - GI/Abdominal GI/Abdominal exam: Present: normal bowel sounds, soft, no peritoneal signs. Absent: distended, tenderness - Extremities Exam Extremities exam: Present: warm, radial pulses palpable and symetrical. Absent : calf tenderness, cyanotic, pedal edema - Neurological Exam Neurological exam: Present: alert, CN II-XII intact, oriented X3, no focal deficits, strengths equal and symetr throughout. Absent: pronater drift, facial droop, speech deficit - Psychiatric Psychiatric exam: Present: anxious, flat affect. Absent: suicidal ideation - Expanded Psychiatric Exam Focused psych exam: Present: restlessness - Skin Skin exam: Present: dry, intact, pallor, warm - VTE Reasons for not Prescribing Prophylaxis: Treatment not Indicated - Low risk for VTE
--- NOTE | 2016-09-30 06:13 | Electrocardiograph Report ---
[place] [id number] Test Date: 2016-09-28 Pat Name: October Tiffany Department: 104 Room: 3B22 Gender: F Drum Printer: SETH : 1965 Requested By: Manuel Mckinley Order Number: [id number] Reading MD: Mariusz Zapata MD Measurements Intervals [place] Rate: 71 P: 63 WA: 161 QRS: 57 QRSD: 90 T: 40 QT: 385 QTc: 407 Interpretive Statements SINUS RHYTHM NONSPECIFIC T-WAVE ABNORMALITY Electronically Signed On 09-30-2016 6:12:02 EDT by Mariusz Zapata MD
--- NOTE | 2016-09-30 07:00 | Electrocardiograph Report ---
[place] [id number] Test Date: 2016-09-29 Pat Name: October Tiffany Department: 113 Room: 3B22 Gender: F Business Objects Architect: LIZABETH : 1965 Requested By: Manuel Lazaro Order Number: [id number] Reading MD: Nolan Brown MD Measurements Intervals [place] Rate: 75 P: 72 ME: 164 QRS: 50 QRSD: 88 T: 31 QT: 378 QTc: 407 Interpretive Statements SINUS RHYTHM NONSPECIFIC T-WAVE ABNORMALITY Electronically Signed On 09-30-2016 6:59:04 EDT by Nolan Brown MD
== END 2016-09-29 13:50 ==
LOC: 3BNU 12:22 → EMEROO 12:22 → 3BNU 15:57
PROVIDERS: ADMIT Nurse Practitioner Acute Care; ATTEND Nurse Practitioner Family

== ENCOUNTER 2016-09-29 15:35 | Inpatient (IN) ==
[2016-09-29] MEDS ORDERED: Ibuprofen 400 MG TABLET PO PRN (16:10)
[2016-09-29] MEDS ORDERED: *HR* LORazepam 2 MG/ML VIAL IM PRN (16:10)
[2016-09-29] MEDS ORDERED: Mag Hydrox/Al Hydrox/Simeth 30 ML UDC PO PRN (16:10)
[2016-09-29] MEDS ORDERED: Haloperidol Lactate 5 MG/ML VIAL IM PRN (16:10)
[2016-09-29] MEDS ORDERED: MOM Conc 10 ML UD.LIQ PO PRN (16:10)
[2016-09-29] MEDS ORDERED: *HR* LORazepam 1 MG TABLET PO PRN (16:10)
[2016-09-29] MEDS ORDERED: ALPRAZolam 0.5 MG TABLET PO PRN (16:16)
[2016-09-29] MEDS: Nicotine 21 MG PATCH.TD24 TD SCH (17:32)
[2016-09-29] MEDS: lamoTRIgine 100 MG TABLET PO SCH (21:19)
[2016-09-29] MEDS: Famotidine 20 MG TABLET PO SCH (21:20)
[2016-09-29] MEDS: Topiramate 100 MG TABLET PO SCH (21:20)
[2016-09-29] MEDS: Gabapentin 300 MG CAPSULE PO SCH (21:20)
[2016-09-29] MEDS: Budesonide/Formoterol 80/4.5 MDI IH SCH (21:21)
[2016-09-30] MEDS: Nicotine 21 MG PATCH.TD24 TD SCH (08:04)
[2016-09-30] MEDS: ARIPiprazole 10 MG TABLET PO SCH (08:05)
[2016-09-30] MEDS: Fluticasone Propionate Nasal 50 MCG/SPRAY BOTTLE NS SCH (08:05)
[2016-09-30] MEDS: Venlafaxine XR (24 HR) 150 MG CAP.ER.24H PO SCH (08:06)
[2016-09-30] MEDS: Cholecalciferol (D-3) 1,000 UNIT TABLET PO SCH (08:06)
[2016-09-30] MEDS: Topiramate 100 MG TABLET PO SCH ×2 (08:06→20:40)
[2016-09-30] MEDS: Gabapentin 300 MG CAPSULE PO SCH ×2 (08:06→20:39)
[2016-09-30] MEDS: Famotidine 20 MG TABLET PO SCH ×2 (08:06→20:40)
--- NOTE | 2016-09-30 10:24 | Psychiatry History & Physical ---
Date of Encounter: 09/30/16 Time of Encounter: 09:50 History of Present Illness Patient Stated Chief Complaint: Suicidal, overdose Medicare Admission Attestation: For traditional Medicare patients the provided hospital inpatient services are reasonable and necessary and in the case of services not specified as inpatient -only under 42 CFR 419.22 (n), that they are appropriately provided as inpatient services in accordance 42 CFR 412.3. For Critical Access Hospital the patient may reasonably be expected to be discharged or transferred to a hospital within 96 hours after admission to the Critical Access Hospital. Admitted From: Intrahospital Transfer History of Present Illness: Ms. Allen is a 50 year old female admitted to the [facility] from the medical floor after medical clearance. Patient was seen by Dr. Waller in the psychiatric consultation regarding overdose on Xanax after having an argument with his . Details of the circumstance of admission are included in the psych consultation report. Patient stated that she is not aware of how much Xanax she took an overdose but obviously she lost consciousness and she has a history of a previous overdose in 2010 similar presentation, she is under care of psychiatrist and also see a counselor for treatment of depression for several years and she is on multiple psychotropic medication as per her list. Patient patient is unable to provide any history regarding her overdose. She admitted to some marital conflict and stress and confirmed that she takes her medication as prescribed. She smokes 1- 1/2 pack cigarettes daily and consume several caffeinated beverages daily and denies any alcohol or drugs. Past Med Surg Social Fam HX - Past Medical History Medical history: asthma - Past Psychiatric History Psychiatric history: Reports: anxiety, depression, previous psychiatric hospitalization Past psychiatric history details: Hospitalization at [facility] 01/22/2011 for overdose in a suicide attempt. Family psychiatric history: Unknown Family History of Suicide: Unknown - Past Surgical History Surgical History: hysterectomy, other - Social History Smoking Status: Current every day smoker Smokeless Tobacco Status: Yes Alcohol use: none Drug use: none - Family History Mother Living Status: Hx Family Endocrine Disorder: Yes (kidney failure) Medications & Allergies Alprazolam [Xanax 1 MG Tablet] 1 mg PO BID PRN 09/28/16 [History] Aripiprazole [Abilify] 20 mg PO DAILY 09/28/16 [History] BuPROPion [Wellbutrin] 100 mg PO DAILY 09/28/16 [History] Cholecalciferol (D-3) [Vitamin D] 2,000 unit PO DAILY 09/28/16 [History] Desvenlafaxine Succinate [Pristiq] 100 mg PO DAILY 09/28/16 [History] Fluticasone Propionate Nasal [Flonase] 50 mcg NS DAILY 09/28/16 [History] Fluticasone/Salmeterol [Advair 250-50 Diskus] 1 puff IH BID 09/28/16 [History] Gabapentin [Neurontin] 300 mg PO QAM 09/28/16 [History] Gabapentin [Neurontin] 600 mg PO HS 09/28/16 [History] Lamotrigine [Lamictal] 100 mg PO HS 09/28/16 [History] Levothyroxine [Synthroid] 50 mcg PO DAILY 09/28/16 [History] Meloxicam [Mobic] 15 mg PO DAILY 09/28/16 [History] Montelukast [Singulair] 10 mg PO DAILY 09/28/16 [History] Propranolol [Inderal] 10 mg PO TID 09/28/16 [History] Quetiapine Fumarate [Seroquel] 100 mg PO HS 09/28/16 [History] Ranitidine HCl [Acid Process Engineering Manager] 150 mg PO BID 09/28/16 [History] Topiramate [Topamax] 100 mg PO BID 09/28/16 [History] Allergies aspirin Allergy (Verified 09/28/16 12:36) Hives influenza virus vacc trivalent, split [From Fluzone] Allergy (Verified 09/29/16 14:59) Swelling of Lip/Tongue/Throat Penicillins Allergy (Verified 09/28/16 12:36) Anaphylaxis Review of Systems Psychiatric: Reports: depression, anxiety, suicidal ideation Mental Status Exam Patient orientation: Yes Person, Yes Time, Yes Place Level of alertness: Alert Patient appearance: Appropriate, Well Groomed Behavior: calm, cooperative, anxious, guarded Psychomotor activity: Normal Eye contact: Maintains Eye Contact Mood description: Depressed, Anxious Affect description: congruent with mood, constricted, blunted Speech pattern: Normal rate, Normal rhythm, Normal tone Speech volume: Normal Thought process: Linear, Goal Oriented Thought content: Yes Suicidal ideation, No Homicidal ideation, No Overt delusions Perceptual disturbances: No Auditory hallucinations, No Visual hallucinations Attention span: Capable of Focused Attention Memory description: Grossly Intact Patient reliability: Questionable Historian Intelligence estimate: Average Judgment: Limited Insight: Partial Results - Vital Signs Vital signs: Temp Pulse Resp BP 98 F 69 16 113/70 09/30/16 08:43 09/30/16 08:43 09/30/16 08:43 09/30/16 08:43 Assessment and Plan (1) Major depressive disorder, recurrent episode Current visit: Yes Status: Acute Plan: Admit inpatient for safety and stabilization, Close observation, Suicide Precautions per unit protocol, Encourage participation in unit milieu, Group Therapy, Monitor sleep, Monitor appetite Qualifiers: Major depression episode severity: moderate Qualified Code(s): F33.1 - Major depressive disorder, recurrent, moderate (2) Benzodiazepine overdose Current visit: Yes Status: Acute Plan: Admit inpatient for safety and stabilization, Close observation, Suicide Precautions per unit protocol, Encourage participation in unit milieu, Group Therapy, Monitor sleep, Monitor appetite Risks, benefits, side effects, alternatives discussed w/pt: Yes Patient agreeable to treatment: Yes Estimated Length of Stay (Days): 3 Qualifiers: Encounter type: initial encounter Injury intent: intentional self-harm Qualified Code(s): T42.4X2A - Poisoning by benzodiazepines, intentional self- harm, initial encounter
[2016-09-30] MEDS: Budesonide/Formoterol 80/4.5 MDI IH SCH ×2 (10:58→23:25)
[2016-09-30] MEDS: lamoTRIgine 100 MG TABLET PO SCH (20:39)
[2016-10-01] MEDS: Topiramate 100 MG TABLET PO SCH (09:04)
[2016-10-01] MEDS: Venlafaxine XR (24 HR) 150 MG CAP.ER.24H PO SCH (09:07)
[2016-10-01] MEDS: ARIPiprazole 10 MG TABLET PO SCH (09:07)
[2016-10-01] MEDS: Gabapentin 300 MG CAPSULE PO SCH (09:07)
[2016-10-01] MEDS: Budesonide/Formoterol 80/4.5 MDI IH SCH (09:08)
[2016-10-01] MEDS: Famotidine 20 MG TABLET PO SCH (09:08)
[2016-10-01] MEDS: Cholecalciferol (D-3) 1,000 UNIT TABLET PO SCH (09:08)
[2016-10-01] MEDS: Nicotine 21 MG PATCH.TD24 TD SCH (09:13)
[2016-10-01] MEDS: Fluticasone Propionate Nasal 50 MCG/SPRAY BOTTLE NS SCH (09:17)
[2016-10-01 10:04] VITALS: BP 111/74
--- NOTE | 2016-10-01 11:32 | Discharge Summary ---
Date of Encounter: 10/01/16 Time of Encounter: 11:00 Diagnosis - Discharge Diagnosis (1) Major depressive disorder, recurrent episode Priority: Primary Status: Acute Qualifiers: Major depression episode severity: moderate Qualified Code(s): F33.1 - Major depressive disorder, recurrent, moderate (2) Benzodiazepine overdose Priority: Secondary Status: Acute Qualifiers: Encounter type: initial encounter Injury intent: intentional self-harm Qualified Code(s): T42.4X2A - Poisoning by benzodiazepines, intentional self- harm, initial encounter Medications - Discharge Medications Prescriptions: Alprazolam [Xanax 0.5 MG Tablet] 0.5 mg PO BID PRN #30 tablet PRN Reason: Anxiety Aripiprazole [Abilify] 20 mg PO DAILY 09/28/16 [History] BuPROPion [Wellbutrin] 100 mg PO DAILY 09/28/16 [History] Cholecalciferol (D-3) [Vitamin D] 2,000 unit PO DAILY 09/28/16 [History] Desvenlafaxine Succinate [Pristiq] 100 mg PO DAILY 09/28/16 [History] Fluticasone Propionate Nasal [Flonase] 50 mcg NS DAILY 09/28/16 [History] Fluticasone/Salmeterol [Advair 250-50 Diskus] 1 puff IH BID 09/28/16 [History] Gabapentin [Neurontin] 300 mg PO QAM 09/28/16 [History] Gabapentin [Neurontin] 600 mg PO HS 09/28/16 [History] Lamotrigine [Lamictal] 100 mg PO HS 09/28/16 [History] Levothyroxine [Synthroid] 50 mcg PO DAILY 09/28/16 [History] Meloxicam [Mobic] 15 mg PO DAILY 09/28/16 [History] Montelukast [Singulair] 10 mg PO DAILY 09/28/16 [History] Propranolol [Inderal] 10 mg PO TID 09/28/16 [History] Quetiapine Fumarate [Seroquel] 100 mg PO HS 09/28/16 [History] Ranitidine HCl [Acid Financial Compliance Manager] 150 mg PO BID 09/28/16 [History] Topiramate [Topamax] 100 mg PO BID 09/28/16 [History] Alprazolam [Xanax 0.5 MG Tablet] 0.5 mg PO BID PRN #30 tablet 10/01/16 [Rx] Allergies aspirin Allergy (Verified 09/28/16 12:36) Hives influenza virus vacc trivalent, split [From Fluzone] Allergy (Verified 09/29/16 14:59) Swelling of Lip/Tongue/Throat Penicillins Allergy (Verified 09/28/16 12:36) Anaphylaxis Provider Date of admission: 09/29/16 15:35 Primary care physician: PCP NO Discharging clinician: Naveen Perez Assessment and Plan - Patient/Caregiver Discharge Instructions Activity: resume usual activities as tolerated Diet: regular diet - Follow up Plan Follow up with: Kylah Lim [facility] [Outside] - 10/16/16 9:00 am (The above appointment is with Franc Frias, psychiatric prescriber. You will also see Selina Dallas for counseling the same day, 10/16/2016, at 10:00am.) Functional capacity at discharge: independent ambulation Overall status at discharge: Stable Disposition: Home, Self-Care Hospital Course Hospital course: Ms. Allen is a 50 year old female admitted from the medical floor for evaluation and treatment of suicide attempt by overdosing on benzodiazepine. For details of the admission please see H&P On the units patient was maintained on her medication she participated in group activities and was medication compliant. Patient was admitted to and did not report any withdrawal symptoms or physical complaints. She regrets her attempt and planning to attend her counseling appointments to learn coping skills that help her manage stress better. Prior to discharge patient was medically stable , denied any suicidal ideation or depressive symptoms she was motivated to follow up in her counseling. tray room worker contacted the family and discussed medication safety at home. - Time Spent with Patient Total time spent providing and/or coordinating discharge services: Greater than 30 minutes Quality - Multiple Antipsychotics Patient discharged on 2 or more antipsychotic medications: Yes - Justification Documentation of: Other justification (Small dose of Seroquel for sleep) Procedures - Procedures Procedures: Medication Management, Crisis Stabilization, Supportive Therapy, Group Therapy, Psychoeducational Therapy Mental Status Exam - Mental Status Exam Patient orientation: Yes Person, Yes Time, Yes Place Level of alertness: Alert Patient appearance: Appropriate, Well Groomed Behavior: calm, cooperative, anxious, guarded Psychomotor activity: Normal Eye contact: Maintains Eye Contact Mood description: Anxious Affect description: congruent with mood, euthymic Speech pattern: Normal rate, Normal rhythm, Normal tone Speech Volume: Normal Thought process: Intact, Logical, Linear, Goal Oriented Thought Content: No Suicidal ideation, No Homicidal ideation, No Overt delusions Perceptual Disturbances: No Auditory hallucinations, No Visual hallucinations Judgment: Limited Insight: Partial
== END 2016-10-01 13:05 | disposition home or self-care (01) | DRG 751 ==
LOC: SUATTDRO 15:35 → 1ANU 15:35
PROVIDERS: ADMIT Student in an Organized Health Care Education/Training Program; ATTEND Psychiatry & Neurology Psychiatry

== ENCOUNTER 2018-04-19 14:33 | Inpatient (IN) ==
[~2018-04-19 14:33] MED LIST: *HR* Etomidate 20 MG/10 ML AMPUL IVP ONE; *HR* Succinylcholine 200 MG/10 ML VIAL IVP ONE
[2018-04-19] MEDS ORDERED: Propofol 500 MG/50 ML INFUS..BTL ONE (14:47)
[2018-04-19] MEDS ORDERED: *HR* Etomidate 40 MG/20 ML VIAL IVP ONE (14:47)
[2018-04-19] MEDS ORDERED: *HR* Succinylcholine 200 MG/10 ML VIAL IVP ONE (14:48)
[2018-04-19] MEDS ORDERED: 0.9 % Sodium Chloride 1,000 ML IVC ONE ×2 (14:50→21:35)
[2018-04-19] MEDS ORDERED: 0.9 % Sodium Chloride 1,000 ML ONE ×2 (14:54→14:55)
--- NOTE | 2018-04-19 14:54 | Emergency Department Note ---
Disposition Clinical Impression: Drug overdose, Suicide attempt by multiple drug overdose Disposition: Admitted As Inpatient Condition: Critical General Adult HPI - General Chief complaint: ED Overdose Stated complaint: unresponsive Time Seen by Provider: 04/19/18 14:42 Source: EMS - History of Present Illness Pain Scale: 0 - Related Data Home Medications Medication Instructions Recorded Confirmed Cholecalciferol (D-3) [Vitamin D] 2,000 unit PO DAILY 09/28/16 04/19/18 Desvenlafaxine Succinate [Pristiq] 100 mg PO DAILY 09/28/16 04/19/18 Fluticasone Propionate Nasal 50 mcg NS DAILY 09/28/16 11/19/17 [Flonase] Levothyroxine [Synthroid] 50 mcg PO DAILY 09/28/16 04/19/18 Meloxicam [Mobic] 15 mg PO DAILY 09/28/16 04/19/18 Montelukast [Singulair] 10 mg PO DAILY 09/28/16 04/19/18 Propranolol [Inderal] 10 mg PO TID 09/28/16 04/19/18 Topiramate [Topamax] 100 mg PO BID 09/28/16 04/19/18 Fluticasone/Salmeterol [Advair 1 puff IH BID 11/19/17 04/19/18 250-50 Diskus] hydrOXYzine HCl [Hydroxyzine HCl] 50 - 100 mg PO HS PRN 11/19/17 04/19/18 hydrOXYzine HCl [Hydroxyzine HCl] 50 mg PO QAM 11/19/17 04/19/18 Albuterol Sulfate [Albuterol 2 puff IH Q4H PRN 04/19/18 04/19/18 Inhaler] Gabapentin [Neurontin] 300 mg PO QID 04/19/18 04/19/18 Omeprazole [PriLOSEC] 40 mg PO DAILY 04/19/18 04/19/18 Quetiapine Fumarate [Seroquel] 200 mg PO HS 04/19/18 04/19/18 Ranitidine HCl [Acid Steam Pipe Fitter] 150 mg PO BID 04/19/18 04/19/18 lamoTRIgine [Lamotrigine] 200 mg PO DAILY 04/19/18 04/19/18 Previous Rx's Medication Instructions Recorded Acetaminophen [Tylenol] 650 mg PO Q6HR PRN tablet 11/19/17 Ondansetron ODT [Zofran ODT] 4 mg SL Q6HR PRN #10 tab.rapdis 01/21/18 Allergies Allergy/AdvReac Type Severity Reaction Status Date / Time aspirin Allergy Hives Verified 01/21/18 16:34 influenza virus vacc Allergy Swelling Verified 01/21/18 16:34 trivalent, split of [From Fluzone] Lip/Tongue/Throat latex Allergy Itching Verified 01/21/18 16:34 Penicillins Allergy Anaphylaxis Verified 01/21/18 16:34 Past Medical History - Past Medical History Medical history: Reports: arthritis, asthma, GERD Surgical history: Reports: hysterectomy, other Psychiatric history: Reports: anxiety, depression, previous psychiatric hospitalization - Social History Smoking Status: Current every day smoker Smokeless Tobacco Status: No Alcohol use: Reports: none Drug use: Reports: none Course Vital Signs Temperature 97.4 F L 04/19/18 14:34 Pulse Rate 99 04/19/18 14:34 Respiratory Rate 12 04/19/18 14:34 Blood Pressure 109/81 04/19/18 14:34 O2 Sat by Pulse Oximetry 93 04/19/18 14:34 Temperature 97.4 F L 04/19/18 14:43 Pulse Rate 87 04/19/18 16:09 Respiratory Rate 19 04/19/18 17:26 Blood Pressure 116/93 04/19/18 17:26 O2 Sat by Pulse Oximetry 100 04/19/18 17:26 Oxygen Delivery Oxygen Delivery Ventilator Medical Decision Making - Lab Data Result diagrams: 04/19/18 15:07 04/19/18 15:07 Lab Results 04/19/18 04/19/18 04/19/18 Range/Units 14:51 15:00 15:02 WBC (4.3-11.1) K/mcL RBC (3.82-4.97) M/mcL Hgb (11.5-15.4) g/dL Hct (35.3-44.9) % MCV (83.0-100.0) fL MCH (28.0-33.3) pg MCHC (31.6-35.5) g/dL RDW (11.5-14.5) % Plt Count (140-400) K/mcL MPV (9.4-12.4) fL Immature Gran % (0-4) % Seg Neutrophils % % Lymphocytes % % Monocytes % % Eosinophils % % Basophils % % Neutrophils # (1.6-8.9) K/mcL Lymphocytes # (0.6-4.6) K/mcL Monocytes # (0.0-1.3) K/mcL Eosinophils # (0.0-0.6) K/mcL Basophils # (0.0-0.2) K/mcL ABG pH 7.37 (7.32-7.45) pH Units ABG pCO2 40 (35-45) mmHg ABG pO2 51 L (85-104) mmHg ABG HCO3 23 (21-27) mEq/L ABG Total CO2 24 (20-26) mEq/L ABG O2 Saturation 85 L (95-98) % ABG Base Excess -2 (-2 to 3) mEq/L Respiration Rate 16 O2 Delivery Device Adult Vent Inspired O2 100.0 (1-15=lpm qs12-432=%) Tidal Volume 450 cc PEEP 5 cm H2O Sodium (136-145) mEq/L Potassium (3.5-5.1) mEq/L Chloride (98-107) mEq/L Carbon Dioxide (23-29) mEq/L BUN (6-20) mg/dL Creatinine (0.60-1.20) mg/dL Est GFR ( Amer) (> 60) Est GFR (Non-Af Amer) (> 60) BUN/Creatinine Ratio (6-26) Glucose (70-105) mg/dL Calculated Osmolality (280-300) Lactic Acid (0.5-2.2) mmol/L Calcium (8.6-10.3) mg/dL Magnesium (1.6-2.6) mg/dL Total Bilirubin (0.3-1.0) mg/dL AST (13-39) Units/L ALT (7-52) Units/L Alkaline Phosphatase (34-104) Units/L Serum Total Protein (6.4-8.9) g/dL Albumin (3.5-5.7) g/dL Globulin (2.4-3.5) g/dL Albumin/Globulin Ratio (1.1-2.2) Urine Color Yellow (Yellow) Urine Clarity Clear (Clear) Urine pH 6.0 (5.0-8.0) pH Units Ur Specific [place] 1.013 (1.010-1.025) Urine Protein Negative (Neg-Trace) mg/dL Urine Glucose (UA) Normal (Normal) mg/dL Urine Ketones Negative (Negative) mg/dL Urine Blood Negative (Negative) Urine Nitrite Negative (Negative) Urine Bilirubin Negative (Negative) Urine Urobilinogen Normal (Normal) mg/dL Ur Leukocyte Esterase Negative (Negative) Ur Culture Indicated? NO (NO) Salicylates (15.0-30.0) mg/dL Urine Opiates Screen Negative (Pqsztr=127) ng/mL Acetaminophen (10-20) mcg/mL Ur Barbiturates Screen Negative (Mlyhjg=861) ng/mL Ur Phencyclidine Scrn Negative (Cutoff=25) ng/mL Ur Amphetamines Screen Negative (Ehmtse=3822) ng/mL U Benzodiazepines Scrn Negative (Psmvca=175) ng/mL Urine Cocaine Screen Negative (Cutoff= 300) ng/mL U Marijuana (THC) Screen Negative (Cutoff = 50) ng/mL Ur Drug Screen Interp See Below 04/19/18 04/19/18 04/19/18 Range/Units 15:07 15:07 15:13 WBC 6.8 (4.3-11.1) K/mcL RBC 4.05 (3.82-4.97) M/mcL Hgb 11.8 (11.5-15.4) g/dL Hct 35.6 (35.3-44.9) % MCV 87.9 (83.0-100.0) fL MCH 29.1 (28.0-33.3) pg MCHC 33.1 (31.6-35.5) g/dL RDW 13.1 (11.5-14.5) % Plt Count 179 (140-400) K/mcL MPV 9.7 (9.4-12.4) fL Immature Gran % 0.7 (0-4) % Seg Neutrophils % 74.5 % Lymphocytes % 16.8 % Monocytes % 6.3 % Eosinophils % 1.3 % Basophils % 0.4 % Neutrophils # 5.1 (1.6-8.9) K/mcL Lymphocytes # 1.1 (0.6-4.6) K/mcL Monocytes # 0.4 (0.0-1.3) K/mcL Eosinophils # 0.1 (0.0-0.6) K/mcL Basophils # 0.0 (0.0-0.2) K/mcL ABG pH (7.32-7.45) pH Units ABG pCO2 (35-45) mmHg ABG pO2 (85-104) mmHg ABG HCO3 (21-27) mEq/L ABG Total CO2 (20-26) mEq/L ABG O2 Saturation (95-98) % ABG Base Excess (-2 to 3) mEq/L Respiration Rate O2 Delivery Device Inspired O2 (1-15=lpm [id number]=%) Tidal Volume cc PEEP cm H2O Sodium 136 (136-145) mEq/L Potassium 3.4 L (3.5-5.1) mEq/L Chloride 104 (98-107) mEq/L Carbon Dioxide 24 (23-29) mEq/L BUN 13 (6-20) mg/dL Creatinine 0.98 (0.60-1.20) mg/dL Est GFR ( Amer) > 60 (> 60) Est GFR (Non-Af Amer) 60 (> 60) BUN/Creatinine Ratio 13 (6-26) Glucose 163 H (70-105) mg/dL Calculated Osmolality 286 (280-300) Lactic Acid 1.4 (0.5-2.2) mmol/L Calcium 9.1 (8.6-10.3) mg/dL Magnesium 1.9 (1.6-2.6) mg/dL Total Bilirubin 0.4 (0.3-1.0) mg/dL AST 12 L (13-39) Units/L ALT 12 (7-52) Units/L Alkaline Phosphatase 95 (34-104) Units/L Serum Total Protein 7.0 (6.4-8.9) g/dL Albumin 4.2 (3.5-5.7) g/dL Globulin 2.8 (2.4-3.5) g/dL Albumin/Globulin Ratio 1.5 (1.1-2.2) Urine Color (Yellow) Urine Clarity (Clear) Urine pH (5.0-8.0) pH Units Ur Specific [place] (1.010-1.025) Urine Protein (Neg-Trace) mg/dL Urine Glucose (UA) (Normal) mg/dL Urine Ketones (Negative) mg/dL Urine Blood (Negative) Urine Nitrite (Negative) Urine Bilirubin (Negative) Urine Urobilinogen (Normal) mg/dL Ur Leukocyte Esterase (Negative) Ur Culture Indicated? (NO) Salicylates < 2.5 L (15.0-30.0) mg/dL Urine Opiates Screen (Kptytx=910) ng/mL Acetaminophen < 10 L (10-20) mcg/mL Ur Barbiturates Screen (Fozhad=293) ng/mL Ur Phencyclidine Scrn (Cutoff=25) ng/mL Ur Amphetamines Screen (Ngpzuw=4513) ng/mL U Benzodiazepines Scrn (Xlgein=600) ng/mL Urine Cocaine Screen (Cutoff= 300) ng/mL U Marijuana (THC) Screen (Cutoff = 50) ng/mL Ur Drug Screen Interp Critical Care Time Critical Care Time: Yes Total Critical Care Time: 30 Attestation: The high probability of a clinically significant, sudden or life threatening deterioration of the [] system(s) required my full and direct attention, intervention and personal management. The aggregate critical care time was [] minutes. This time is in addition to time spent performing reported procedures but includes the following: [] Data Review and interpretation [] Patient assessment and monitoring of vital signs [] Documentation [] Medication orders and management Attestation Statement - Attestation Attestation: I examined this patient and my medical decision-making was reviewed with the Resident Physician. I agree with the documented findings, disposition and treatment plan as described except to the extent set forth below. [id number] time provided Patient presents after an accidental overdose. She is obtunded. Unable to protect her airway. Rapid sequence intubation performed by the resident physician under my direct supervision. Patient will require telephone consultation with poison control center and admission to the intensive care unit
--- NOTE | 2018-04-19 14:54 | Emergency Department Note ---
Overdose - [facility] Narrative Medical decision making narrative: Patient's workup in the emergency Department is concerning for the patient protecting her airway. She was not at that time so the patient was emergently intubated. The patient has tolerated this well. She is tolerating sedation. QTC has remained below for 60. The patient case was discussed with poison control who will continue to consult on the case. He recommended seizure precautions as well as remain intubation with likely due to sedation tomorrow. The patient will be admitted to the hospitalist, accepted by Dr. Arana. - Lab Data Lab results reviewed: Yes I reviewed the patient's lab results. Result diagrams: 04/19/18 15:07 04/19/18 15:07 Lab Results 04/19/18 04/19/18 04/19/18 Range/Units 14:51 15:00 15:02 WBC (4.3-11.1) K/mcL RBC (3.82-4.97) M/mcL Hgb (11.5-15.4) g/dL Hct (35.3-44.9) % MCV (83.0-100.0) fL MCH (28.0-33.3) pg MCHC (31.6-35.5) g/dL RDW (11.5-14.5) % Plt Count (140-400) K/mcL MPV (9.4-12.4) fL Immature Gran % (0-4) % Seg Neutrophils % % Lymphocytes % % Monocytes % % Eosinophils % % Basophils % % Neutrophils # (1.6-8.9) K/mcL Lymphocytes # (0.6-4.6) K/mcL Monocytes # (0.0-1.3) K/mcL Eosinophils # (0.0-0.6) K/mcL Basophils # (0.0-0.2) K/mcL ABG pH 7.37 (7.32-7.45) pH Units ABG pCO2 40 (35-45) mmHg ABG pO2 51 L (85-104) mmHg ABG HCO3 23 (21-27) mEq/L ABG Total CO2 24 (20-26) mEq/L ABG O2 Saturation 85 L (95-98) % ABG Base Excess -2 (-2 to 3) mEq/L Respiration Rate 16 O2 Delivery Device Adult Vent Inspired O2 100.0 (1-15=lpm [id number]=%) Tidal Volume 450 cc PEEP 5 cm H2O Sodium (136-145) mEq/L Potassium (3.5-5.1) mEq/L Chloride (98-107) mEq/L Carbon Dioxide (23-29) mEq/L BUN (6-20) mg/dL Creatinine (0.60-1.20) mg/dL Est GFR ( Amer) (> 60) Est GFR (Non-Af Amer) (> 60) BUN/Creatinine Ratio (6-26) Glucose (70-105) mg/dL Calculated Osmolality (280-300) Lactic Acid (0.5-2.2) mmol/L Calcium (8.6-10.3) mg/dL Magnesium (1.6-2.6) mg/dL Total Bilirubin (0.3-1.0) mg/dL AST (13-39) Units/L ALT (7-52) Units/L Alkaline Phosphatase (34-104) Units/L Serum Total Protein (6.4-8.9) g/dL Albumin (3.5-5.7) g/dL Globulin (2.4-3.5) g/dL Albumin/Globulin Ratio (1.1-2.2) Urine Color Yellow (Yellow) Urine Clarity Clear (Clear) Urine pH 6.0 (5.0-8.0) pH Units Ur Specific [place] 1.013 (1.010-1.025) Urine Protein Negative (Neg-Trace) mg/dL Urine Glucose (UA) Normal (Normal) mg/dL Urine Ketones Negative (Negative) mg/dL Urine Blood Negative (Negative) Urine Nitrite Negative (Negative) Urine Bilirubin Negative (Negative) Urine Urobilinogen Normal (Normal) mg/dL Ur Leukocyte Esterase Negative (Negative) Ur Culture Indicated? NO (NO) Salicylates (15.0-30.0) mg/dL Urine Opiates Screen Negative (Psjegq=124) ng/mL Acetaminophen (10-20) mcg/mL Ur Barbiturates Screen Negative (Zfmsmz=102) ng/mL Ur Phencyclidine Scrn Negative (Cutoff=25) ng/mL Ur Amphetamines Screen Negative (Ntxtgh=5773) ng/mL U Benzodiazepines Scrn Negative (Eqlmgh=904) ng/mL Urine Cocaine Screen Negative (Cutoff= 300) ng/mL U Marijuana (THC) Screen Negative (Cutoff = 50) ng/mL Ur Drug Screen Interp See Below 04/19/18 04/19/18 04/19/18 Range/Units 15:07 15:07 15:13 WBC 6.8 (4.3-11.1) K/mcL RBC 4.05 (3.82-4.97) M/mcL Hgb 11.8 (11.5-15.4) g/dL Hct 35.6 (35.3-44.9) % MCV 87.9 (83.0-100.0) fL MCH 29.1 (28.0-33.3) pg MCHC 33.1 (31.6-35.5) g/dL RDW 13.1 (11.5-14.5) % Plt Count 179 (140-400) K/mcL MPV 9.7 (9.4-12.4) fL Immature Gran % 0.7 (0-4) % Seg Neutrophils % 74.5 % Lymphocytes % 16.8 % Monocytes % 6.3 % Eosinophils % 1.3 % Basophils % 0.4 % Neutrophils # 5.1 (1.6-8.9) K/mcL Lymphocytes # 1.1 (0.6-4.6) K/mcL Monocytes # 0.4 (0.0-1.3) K/mcL Eosinophils # 0.1 (0.0-0.6) K/mcL Basophils # 0.0 (0.0-0.2) K/mcL ABG pH (7.32-7.45) pH Units ABG pCO2 (35-45) mmHg ABG pO2 (85-104) mmHg ABG HCO3 (21-27) mEq/L ABG Total CO2 (20-26) mEq/L ABG O2 Saturation (95-98) % ABG Base Excess (-2 to 3) mEq/L Respiration Rate O2 Delivery Device Inspired O2 (1-15=lpm lf96-529=%) Tidal Volume cc PEEP cm H2O Sodium 136 (136-145) mEq/L Potassium 3.4 L (3.5-5.1) mEq/L Chloride 104 (98-107) mEq/L Carbon Dioxide 24 (23-29) mEq/L BUN 13 (6-20) mg/dL Creatinine 0.98 (0.60-1.20) mg/dL Est GFR ( Amer) > 60 (> 60) Est GFR (Non-Af Amer) 60 (> 60) BUN/Creatinine Ratio 13 (6-26) Glucose 163 H (70-105) mg/dL Calculated Osmolality 286 (280-300) Lactic Acid 1.4 (0.5-2.2) mmol/L Calcium 9.1 (8.6-10.3) mg/dL Magnesium 1.9 (1.6-2.6) mg/dL Total Bilirubin 0.4 (0.3-1.0) mg/dL AST 12 L (13-39) Units/L ALT 12 (7-52) Units/L Alkaline Phosphatase 95 (34-104) Units/L Serum Total Protein 7.0 (6.4-8.9) g/dL Albumin 4.2 (3.5-5.7) g/dL Globulin 2.8 (2.4-3.5) g/dL Albumin/Globulin Ratio 1.5 (1.1-2.2) Urine Color (Yellow) Urine Clarity (Clear) Urine pH (5.0-8.0) pH Units Ur Specific [place] (1.010-1.025) Urine Protein (Neg-Trace) mg/dL Urine Glucose (UA) (Normal) mg/dL Urine Ketones (Negative) mg/dL Urine Blood (Negative) Urine Nitrite (Negative) Urine Bilirubin (Negative) Urine Urobilinogen (Normal) mg/dL Ur Leukocyte Esterase (Negative) Ur Culture Indicated? (NO) Salicylates < 2.5 L (15.0-30.0) mg/dL Urine Opiates Screen (Lpbfwh=478) ng/mL Acetaminophen < 10 L (10-20) mcg/mL Ur Barbiturates Screen (Mrtkpo=013) ng/mL Ur Phencyclidine Scrn (Cutoff=25) ng/mL Ur Amphetamines Screen (Sbnslx=8861) ng/mL U Benzodiazepines Scrn (Xbwoeq=181) ng/mL Urine Cocaine Screen (Cutoff= 300) ng/mL U Marijuana (THC) Screen (Cutoff = 50) ng/mL Ur Drug Screen Interp - Radiology Data Radiology results reviewed: Yes I reviewed the patient's radiology results. Chest X-Ray 04/19/18 14:42 IMPRESSION: Support apparatus as described above. Pulmonary vascular congestion. D/ / Crow Ragsdale MD / Crow Ragsdale MD Interpreting Provider: Crow Ragsdale MD Head CT 04/19/18 14:55 IMPRESSION: No acute intracranial abnormality. D/ / Robert Salinas MD / Robert Salinas MD Interpreting Provider: Robert Salinas MD - EKG Data EKG attestation: Yes I reviewed and interpreted this EKG. EKG results narrative: Heart rate sinus tachycardia at 101 beats for minute. No ST elevation but mild ST depression noted in V3, V4, no other acute changes noted. EKG #2: Heart rate 91 beats for minute. She to C4 3 milliseconds. Normal sinus rhythm. No ST elevation but mild ST depression in V3, V4, V5 she is unchanged. EKG #3. Heart rate 80 beats for minute. QTC 408 ms. Normal sinus rhythm. No ST elevation but continued mild ST depression noted in V3, V4, no other acute changes noted. Overdose HPI - General Chief Complaint: ED Overdose Stated Complaint: unresponsive Time Seen by Provider: 04/19/18 14:42 Source: EMS Mode of arrival: EMS Limitations: altered mental status Nursing Notes Reviewed: Yes Vital Signs Reviewed: Yes - History of Present Illness HPI Narrative: 52-year-old female with history of psychiatric disorders arrives to the emergency department after apparently taking medications to include Lamictal, Seroquel, tramadol and it and it suicide attempt. The patient was brought in by EMS after being found by family. Family and EMS noted the patient was responsive only to painful stimuli. Upon arrival to the emergency department again this helped case she was only responsive to painful stimuli. The patient was unable to answer any questions. She did follow intermittent commands but only after vigorous stimulation. At this time it was ruled the patient was not protecting her airway and would not continue to do so. We emergently intubated the patient using rapid sequence intubation with etomidate and succinylcholine. The patient was intubated by Dr. Hammond with attending physician at bedside. The patient had a 7.5 tube that was secured at 22 cm at the lip line. There was confirmed by coloriemetric capnography, chest x-ray as well as auscultation of the lung granda. We will consult with control this time. The patient will be admitted to the intensive care unit for further care and workup. Labs were obtained. Patient's EKG demonstrates sinus tachycardia with a QTC of 445. Lamictal 200 mg quantity of 30 with 0 left. Seroquel 200 mg quantity of 30 with 0 left. Tramadol 50 mg quantity of 30 with 2 left. - Related Data Home Medications Medication Instructions Recorded Confirmed BuPROPion [Wellbutrin] 100 mg PO DAILY 09/28/16 11/19/17 Cholecalciferol (D-3) [Vitamin D] 2,000 unit PO DAILY 09/28/16 11/19/17 Desvenlafaxine Succinate [Pristiq] 100 mg PO DAILY 09/28/16 04/19/18 Fluticasone Propionate Nasal 50 mcg NS DAILY 09/28/16 11/19/17 [Flonase] Levothyroxine [Synthroid] 50 mcg PO DAILY 09/28/16 11/19/17 Meloxicam [Mobic] 15 mg PO DAILY 09/28/16 11/19/17 Montelukast [Singulair] 10 mg PO DAILY 09/28/16 11/19/17 Propranolol [Inderal] 10 mg PO TID 09/28/16 11/19/17 Topiramate [Topamax] 100 mg PO BID 09/28/16 11/19/17 Fluticasone/Salmeterol [Advair 1 puff IH BID 11/19/17 04/19/18 250-50 Diskus] hydrOXYzine HCl [Hydroxyzine HCl] 50 - 100 mg PO HS PRN 11/19/17 04/19/18 hydrOXYzine HCl [Hydroxyzine HCl] 50 mg PO QAM 11/19/17 11/19/17 rOPINIRole [Requip] 1 mg PO HS 11/19/17 11/19/17 Albuterol Sulfate [Albuterol 04/19/18 Inhaler] Gabapentin [Neurontin] 300 mg PO QID 04/19/18 04/19/18 Quetiapine Fumarate [Seroquel] 200 mg PO HS 04/19/18 04/19/18 lamoTRIgine [Lamotrigine] 200 mg PO DAILY 04/19/18 04/19/18 Previous Rx's Medication Instructions Recorded ALPRAZolam [Xanax 0.5 MG Tablet] 0.5 mg PO BID PRN #30 tablet 10/01/16 Acetaminophen [Tylenol] 650 mg PO Q6HR PRN tablet 11/19/17 OxyCODONE/APAP 5/325 [Percocet 1 each PO Q6H PRN 5 Days #20 tablet 11/19/17 5/325 MG] Ondansetron ODT [Zofran ODT] 4 mg SL Q6HR PRN #10 tab.rapdis 01/21/18 Allergies Allergy/AdvReac Type Severity Reaction Status Date / Time aspirin Allergy Hives Verified 01/21/18 16:34 influenza virus vacc Allergy Swelling Verified 01/21/18 16:34 trivalent, split of [From Fluzone] Lip/Tongue/Throat latex Allergy Itching Verified 01/21/18 16:34 Penicillins Allergy Anaphylaxis Verified 01/21/18 16:34 Limitations: ROS unobtainable due to patients medical condition Past Medical History - Past Medical History Source: old records reviewed Medical history: Reports: arthritis, asthma, GERD Surgical history: Reports: hysterectomy, other Psychiatric history: Reports: anxiety, depression, previous psychiatric hospitalization - Social History Smoking Status: Current every day smoker Smokeless Tobacco Status: No Alcohol use: Reports: none Drug use: Reports: none Physical Exam - General Limitations: altered mental status General appearance: obtunded - Head Head exam: atraumatic, normocephalic, normal inspection - Eye Eye exam: Present: normal appearance, PERRL, EOMI - ENT ENT exam: normal exam, normal oropharynx, mucous membranes moist - Neck Neck exam: Present: normal inspection, full ROM, trachea midline - Chest Chest inspection: Present: normal inspection, symmetric chest wall rise - Respiratory Respiratory exam: Present: normal lung sounds bilaterally - Cardiovascular Cardiovascular exam: Present: regular rate, normal rhythm, normal heart sounds - Abdominal Exam Abdominal exam: Present: soft, Non-Tender. Absent: tenderness, distention, guarding, rebound, rigidity - Extremities Exam Extremities exam: Present: normal inspection, full ROM. Absent: tenderness, pedal edema - Expanded Neurological Exam Coma Scale Eye Opening: To Pain Coma Scale Motor Response: Localizes to Pain Coma Scale Verbal Response: None Coma Scale Total: 8 - Skin Skin exam: Present: warm, dry, intact, normal color Course Vital Signs Temperature 97.4 F L 04/19/18 14:34 Pulse Rate 99 04/19/18 14:34 Respiratory Rate 12 04/19/18 14:34 Blood Pressure 109/81 04/19/18 14:34 O2 Sat by Pulse Oximetry 93 04/19/18 14:34 Temperature 97.4 F L 04/19/18 14:43 Pulse Rate 87 04/19/18 16:09 Respiratory Rate 18 04/19/18 16:09 Blood Pressure 106/80 04/19/18 16:09 O2 Sat by Pulse Oximetry 100 04/19/18 16:09 Oxygen Delivery Oxygen Delivery Ventilator Disposition Clinical Impression: Drug overdose Qualifiers: Encounter type: initial encounter Injury intent: intentional self-harm Qualified Code(s): T50.902A - Poisoning by unspecified drugs, medicaments and biological substances, intentional self-harm, initial encounter Suicide attempt by multiple drug overdose Qualifiers: Encounter type: initial encounter Qualified Code(s): T50.902A - Poisoning by unspecified drugs, medicaments and biological substances, intentional self-harm , initial encounter Disposition: Admitted As Inpatient Condition: Critical Time of Disposition: 16:23
[2018-04-19] MEDS: 0.9 % Sodium Chloride 1,000 ML IVC ONE ×2 (14:57→15:23)
[2018-04-19] MEDS ORDERED: *HR* Midazolam HCl 2 MG/2 ML VIAL IVP ONE (15:05)
[2018-04-19 15:10] LABS: ABG Base Excess -2 mEq/L (-2 to 3); ABG HCO3 23 mEq/L (21-27); ABG Oxygen Saturation 85 % (95-98); ABG PCO2 40 mmHg (35-45); ABG PH 7.37 pH Units (7.32-7.45); ABG PO2 51 mmHg (85-104); ABG TCO2 24 mEq/L (20-26); Blood Gas PEEP 5 cm H2O; Blood Gas Respiration Rate 16; Blood Gas VT 450 cc
[2018-04-19 15:11] LABS: Bilirubin,Urine Negative (Negative); Blood,Urine Negative (Negative); Clarity,Urine Clear (Clear); Color,Urine Yellow (Yellow); Glucose,Urine (UA) Normal (Normal); Ketones,Urine Negative (Negative); Leukocyte Esterase,Urine Negative (Negative); Nitrite,Urine Negative (Negative); Protein,Urine Negative (Neg-Trace); Specific Gravity,Urine 1.013 (1.010-1.025); Urobilinogen,Urine Normal (Normal)
[2018-04-19] MEDS ORDERED: *HR* Midazolam HCl 5 MG/5 ML VIAL IVP ONE (15:17)
[2018-04-19 15:31] LABS: Amphetamine Screen,Urine Negative ng/mL (Cutoff=1000); Barbiturate Screen,Urine Negative ng/mL (Cutoff=200); Benzodiazepines Screen,Urine Negative ng/mL (Cutoff=200); Cannabinoid Screen,Urine Negative ng/mL (Cutoff = 50); Cocaine Screen,Urine Negative ng/mL (Cutoff= 300); Opiate Screen,Urine Negative ng/mL (Cutoff=300); Phencyclidine Screen,Urine Negative ng/mL (Cutoff=25)
[2018-04-19 15:34] LABS: Basophils % 0.4 %; Eosinophils # 0.1 K/mcL (0.0-0.6); Eosinophils % 1.3 %; Hematocrit 35.6 % (35.3-44.9); Hemoglobin 11.8 g/dL (11.5-15.4); Immature Granulocytes % 0.7 % (0-4); Lymphocytes # 1.1 K/mcL (0.6-4.6); Lymphocytes % 16.8 %; Mean Corpuscular HGB Conc 33.1 g/dL (31.6-35.5); Mean Corpuscular Hemoglobin 29.1 pg (28.0-33.3); Mean Corpuscular Volume 87.9 fL (83.0-100.0); Mean Platelet Volume 9.7 fL (9.4-12.4); Monocytes # 0.4 K/mcL (0.0-1.3); Monocytes % 6.3 %; Neutrophils # 5.1 K/mcL (1.6-8.9); Platelet Count 179 K/mcL (140-400); Red Blood Count 4.05 M/mcL (3.82-4.97); Red Cell Distribution Width 13.1 % (11.5-14.5); Segmented Neutrophils % 74.5 %
[2018-04-19 15:58] LABS: Alanine Aminotransferase 12 Units/L (7-52); Albumin 4.2 g/dL (3.5-5.7); Albumin/Globulin Ratio 1.5 (1.1-2.2); Alkaline Phosphatase 95 Units/L (34-104); Aspartate Amino Transferase 12 Units/L (13-39); BUN/Creatinine Ratio 13 (6-26); Bilirubin,Total 0.4 mg/dL (0.3-1.0); Blood Urea Nitrogen 13 mg/dL (6-20); Calcium 9.1 mg/dL (8.6-10.3); Carbon Dioxide 24 mEq/L (23-29); Chloride 104 mEq/L (98-107); Globulin 2.8 g/dL (2.4-3.5); Glucose 163 mg/dL (70-105); Magnesium 1.9 mg/dL (1.6-2.6); Osmolality,Calculated 286 (280-300); Potassium 3.4 mEq/L (3.5-5.1); Sodium 136 mEq/L (136-145); eGFR For Non-African Americans 60 (> 60)
[2018-04-19 16:08] LABS: Acetaminophen < 10 mcg/mL (10-20); Salicylate < 2.5 mg/dL (15.0-30.0)
[2018-04-19] MEDS ORDERED: Naloxone 0.4 MG/ML INJ IVP PRN (17:57)
[2018-04-19] MEDS ORDERED: Artificial Tears SOLN 15 ML BOTTLE BOTH EYES PRN (18:08)
[2018-04-19 18:35] LABS: ABG Base Excess -3 mEq/L (-2 to 3); ABG HCO3 20 mEq/L (21-27); ABG Oxygen Saturation 100 % (95-98); ABG PCO2 30 mmHg (35-45); ABG PH 7.43 pH Units (7.32-7.45); ABG PO2 163 mmHg (85-104); ABG TCO2 21 mEq/L (20-26); Blood Gas Modality AF; Blood Gas PEEP 5 cm H2O; Blood Gas Respiration Rate 18; Blood Gas VT 450 cc
--- NOTE | 2018-04-19 18:39 | Internal Med History&Physical ---
Date of Encounter: 04/19/18 Time of Encounter: 18:00 Internal Medicine - H&P: HPI Chief complaint: Intentional drug overdose Admitted From: Home Plans for Post Hospital Care: Transfer Psych Facility History of present illness: This is a 52-year-old woman with severe bipolar disorder. It was today early afternoon, when she was found by one of her children on the floor of her home. She was very lethargic. She was able to say single words at times, when questioned loudly. There were 3 bottles of her medications found next to her. 2 of them were empty (or her Lamictal and Seroquel). The third one had 2 tablets of tramadol left. The other medications she was using before we restarted in a box. Subsequently, she was brought to our emergency room for evaluation and treatments. When arriving here she was unresponsive to verbal stimuli. She was responding to pain stimuli. They found her airways to be not safe. She was intubated/put on ventilator. I got her past medical history of from 2 of her children (daughters). The patient suffers from severe bipolar disorder. It started at least 12 years ago. During that time she attempted to commit suicide about 12 times. It was either intentionally overdosing drugs or surprising her wrists. She has had a history of multiple hospitalizations in psychiatric wards. Many of those happened in our hospital. The last one happened last year. Her medical problems include asthma/COPD, inhalant allergies, hypothyroidism, restless leg syndrome and some arthritis in multiple locations (low back, hips and knees). She had total hysterectomy more than 15 years ago. She had cholecystectomy about a month ago. Shortly after leaving our hospital (after cholecystectomy) she fell and broke some of her ribs. REVIEW OF SYSTEMS: All 14 organ systems were reviewed by me with the patient's family. Positive and pertinent negative findings are listed above. The rest of organ systems is negative. PHYSICAL EXAM: Skin: Free of rash and discoloration. Eyes: Sclera is white. There is no discharge from eyes. ENMT: Oral/pharyngeal mucosa is normal in appearance. There is no discharge from nose or ears. Respiratory: Normal breath sounds with no crackles and wheezes bilaterally. CV: Heart is regular with no gallop or murmur. GI: Abdomen is flat and soft with no palpable mass or visceromegaly. : There is no tenderness in patient's flanks bilaterally. Neuro exam: She is responding to painful stimuli. She seems to have good muscle tone in all 4 extremities. Her pupils are normal size responding to light. Psychiatric: Deferred to psychiatry, when patient is medically stable.. ADDITIONAL DATA: Her CT of the brain and chest x-ray do not show any abnormalities. ABG was done shortly after intubation. She was on 100% oxygen at that time. She was a low bit hypoxic. She was not hypercapnic. CBC is normal. She has sodium of 136 with potassium of 3.4. Her bicarb is 24. Creatinine is 0.98. Glucose is 163 with calcium of 9.1. Magnesium is 1.9. Lactic acid is 1.4. Liver function tests are normal. UA shows normal findings. Urine drug screen is normal. She has normal levels of salicylates and acetaminophen. A/P: Intentional drug overdose with altered mental status requiring intubation/ mechanical ventilation. We will keep her on IV Diprivan drip. She will be in ICU. I will obtain a pulmonary diseases/critical care consult, when available. Severe bipolar disorder. History of multiple suicidal attempts (including this one). We will present her to psychiatry, when medically stable. Her other medical problems are presented by me above. They are stable/under control. Past Med Surg Social Fam HX - Past Medical History Medical history: arthritis, asthma, GERD Psychiatric history: anxiety, depression, previous psychiatric hospitalization - Past Surgical History Surgical History: hysterectomy, other Additional surgical history: tonsillectomy - Social History Smoking Status: Current every day smoker Packs per day: 2 Smokeless Tobacco Status: No Alcohol use: none Drug use: none - Family History Mother Living Status: Hx Family Endocrine Disorder: Yes (kidney failure) Internal Medicine - H&P: Meds Cholecalciferol (D-3) [Vitamin D] 2,000 unit PO DAILY 09/28/16 [History] Desvenlafaxine Succinate [Pristiq] 100 mg PO DAILY 09/28/16 [History] Fluticasone Propionate Nasal [Flonase] 50 mcg NS DAILY 09/28/16 [History] Levothyroxine [Synthroid] 50 mcg PO DAILY 09/28/16 [History] Meloxicam [Mobic] 15 mg PO DAILY 09/28/16 [History] Montelukast [Singulair] 10 mg PO DAILY 09/28/16 [History] Propranolol [Inderal] 10 mg PO TID 09/28/16 [History] Topiramate [Topamax] 100 mg PO BID 09/28/16 [History] Acetaminophen [Tylenol] 650 mg PO Q6HR PRN tablet 11/19/17 [Rx] Fluticasone/Salmeterol [Advair 250-50 Diskus] 1 puff IH BID 11/19/17 [History] hydrOXYzine HCl [Hydroxyzine HCl] 50 - 100 mg PO HS PRN 11/19/17 [History] hydrOXYzine HCl [Hydroxyzine HCl] 50 mg PO QAM 11/19/17 [History] Ondansetron ODT [Zofran ODT] 4 mg SL Q6HR PRN #10 tab.rapdis 01/21/18 [Rx] Albuterol Sulfate [Albuterol Inhaler] 2 puff IH Q4H PRN 04/19/18 [History] Gabapentin [Neurontin] 300 mg PO QID 04/19/18 [History] Omeprazole [PriLOSEC] 40 mg PO DAILY 04/19/18 [History] Quetiapine Fumarate [Seroquel] 200 mg PO HS 04/19/18 [History] Ranitidine HCl [Acid Shoe Sewing Machine Operator And Tender] 150 mg PO BID 04/19/18 [History] lamoTRIgine [Lamotrigine] 200 mg PO DAILY 04/19/18 [History] 3 Allergy/AdvReac Type Severity Reaction Status Date / Time aspirin Allergy Hives Verified 01/21/18 16:34 influenza virus vacc Allergy Swelling Verified 01/21/18 16:34 trivalent, split of [From Fluzone] Lip/Tongue/Throat latex Allergy Itching Verified 01/21/18 16:34 Penicillins Allergy Anaphylaxis Verified 01/21/18 16:34 - Constitutional Vitals: Temp Pulse Resp BP Pulse Ox 97.4 F L 87 19 116/93 100 04/19/18 14:43 04/19/18 16:09 04/19/18 17:26 04/19/18 17:26 04/19/18 17:26 General appearance: Present: no acute distress (on vent..) Exam: xx Internal Med - H&P Results - Labs CBC & Chem 7: 04/19/18 15:07 04/19/18 15:07 - ABG Interpretation ABG results: 04/19/18 18:30 ABG pH 7.43 ABG pCO2 30 L ABG pO2 163 H D ABG HCO3 20 L ABG Total CO2 21 ABG O2 Saturation 100 H ABG Base Excess -3 L - Assessment and plan (1) Suicide attempt by multiple drug overdose Current Visit: Yes Status: Acute Qualifiers: Encounter type: initial encounter Qualified Code(s): T50.902A - Poisoning by unspecified drugs, medicaments and biological substances, intentional self- harm, initial encounter (2) Bipolar disorder Current Visit: Yes Status: Acute Qualifiers: Active/Remission status: currently active Current bipolar episode type: depressed Current episode severity: unspecified Qualified Code(s): F31.30 - Bipolar disorder, current episode depressed, mild or moderate severity, unspecified (3) Asthma with COPD Current Visit: Yes Status: Acute - Time Spent With Patient Total time spent is greater than 50% in coordination of care (as documented) at patient's floor/unit and/or counseling patient: 25 - 35 minutes - VTE Deep Vein Thrombosis/Pulmonary Embolism Present on Admission: No
[2018-04-19] MEDS: Chlorhexidine Rinse 15 ML MOUTHWASH MM SCH (20:09)
[2018-04-19] MEDS: Artificial Tears SOLN 15 ML BOTTLE BOTH EYES SCH ×2 (20:11→23:23)
[2018-04-19] MEDS: Budesonide/Formoterol 160/4.5 1 PUFF INH IH SCH (20:21)
[2018-04-20 03:20] LABS: Hematocrit 33.9 % (35.3-44.9); Mean Corpuscular HGB Conc 32.4 g/dL (31.6-35.5); Mean Corpuscular Volume 89.4 fL (83.0-100.0); Mean Platelet Volume 9.6 fL (9.4-12.4); Platelet Count 213 K/mcL (140-400); Red Blood Count 3.79 M/mcL (3.82-4.97); Red Cell Distribution Width 13.2 % (11.5-14.5)
[2018-04-20 03:25] LABS: Prothrombin Time 11.6 Seconds (9.4-12.1)
[2018-04-20 03:40] LABS: BUN/Creatinine Ratio 11 (6-26); Blood Urea Nitrogen 9 mg/dL (6-20); Calcium 8.4 mg/dL (8.6-10.3); Carbon Dioxide 21 mEq/L (23-29); Chloride 113 mEq/L (98-107); Glucose 125 mg/dL (70-105); Osmolality,Calculated 294 (280-300); Sodium 142 mEq/L (136-145); eGFR For Non-African Americans > 60 (> 60)
[2018-04-20] MEDS: Artificial Tears SOLN 15 ML BOTTLE BOTH EYES SCH ×3 (03:44→11:32)
[2018-04-20 03:56] LABS: Thyroid Stimulating Hormone 7.442 mcIU/mL (0.340-5.600)
[2018-04-20] MEDS ORDERED: Potassium Chloride Elixir 20 MEQ/15 ML UDC GTUBE ONE (04:27)
[2018-04-20] MEDS: *HR* Heparin 5,000 UNIT/ML VIAL SQ SCH ×4 (05:06→20:20)
[2018-04-20] MEDS ORDERED: Famotidine 20 MG/2 ML VIAL IVP SCH (06:00)
[2018-04-20 06:14] LABS: ABG Base Excess -2 mEq/L (-2 to 3); ABG HCO3 23 mEq/L (21-27); ABG Oxygen Saturation 99 % (95-98); ABG PCO2 39 mmHg (35-45); ABG PH 7.38 pH Units (7.32-7.45); ABG PO2 118 mmHg (85-104); ABG TCO2 24 mEq/L (20-26); Blood Gas Modality PRVC; Blood Gas PEEP 5 cm H2O; Blood Gas Respiration Rate 16; Blood Gas VT 450 cc
[2018-04-20] MEDS ORDERED: Furosemide 20 MG/2 ML VIAL IVP ONE (08:00)
[2018-04-20] MEDS: Chlorhexidine Rinse 15 ML MOUTHWASH MM SCH (08:33)
--- NOTE | 2018-04-20 08:53 | Electrocardiograph Report ---
[address] [place], [place] [address] Test Date: 2018-04-19 Pat Name: October Tiffany Department: [id number] Room: 12 Gender: F Center Rep: : 1965 Requested By: Manuel Mckinley Order Number: [id number] Reading MD: Janee Steel Measurements Intervals [place] Rate: 101 P: 83 RI: 170 QRS: 74 QRSD: 100 T: -62 QT: 343 QTc: 445 Interpretive Statements Sinus tachycardia Consider left atrial enlargement Repol abnrm suggests ischemia, anterolateral Electronically Signed On 04-20-2018 8:52:12 EDT by Janee Steel
--- NOTE | 2018-04-20 08:54 | Electrocardiograph Report ---
[address] [place], [place] [address] Test Date: 2018-04-19 Pat Name: October Tiffany Department: [id number] Room: 12 Gender: F Actuarial Director: : 1965 Requested By: Manuel Mckinley Order Number: [id number] Reading MD: Janee Steel Measurements Intervals [place] Rate: 91 P: 87 LA: 171 QRS: 77 QRSD: 93 T: -68 QT: 327 QTc: 403 Interpretive Statements Sinus rhythm Consider left atrial enlargement Nonspecific repol abnormality, diffuse leads Electronically Signed On 04-20-2018 8:52:45 EDT by Janee Steel
--- NOTE | 2018-04-20 09:32 | Pulmonology Consult Note ---
<Bal Nava R - Last Filed: 04/20/18 15:14> Date of Encounter: 04/20/18 Time of Encounter: 07:45 Assessment and Plan (1) Suicide attempt by multiple drug overdose Current Visit: Yes Status: Acute Patient extubated this morning. Saturating at 100% on room air. She remains lethargic and confused. Patient does not remember events leading up to hospitalization. She denies intentional drug overdose. She denies suicidal ideations. Patient remains hemodynamically stable. Blood pressures are on the soft side however have remained stable throughout admission. Patient was discussed with poison control. They recommended seizure precautions for 24 hours. Patient currently on 1-1 observation. EKG was repeated this afternoon, QT interval was 323. Repleting potassium and magnesium, will repeat BMP this evening. Psychiatry was consulted and they have now evaluated the patient. Once patient is medically stabilized will plan for transfer to one a psychiatric unit tomorrow. Psychiatry is requesting that pink sheet be placed on the chart. Qualifiers: Encounter type: initial encounter Qualified Code(s): T50.902A - Poisoning by unspecified drugs, medicaments and biological substances, intentional self- harm, initial encounter (2) Bipolar disorder Current Visit: Yes Status: Acute Bipolar disorder with history of multiple suicide attempts. Psychiatry has been consultation, appreciate the recommendations. We will hold patient's medications at this time due to recent overdose and resume at psychiatry's recommendation. Qualifiers: Active/Remission status: currently active Current bipolar episode type: depressed Current episode severity: unspecified Qualified Code(s): F31.30 - Bipolar disorder, current episode depressed, mild or moderate severity, unspecified (3) Asthma with COPD Current Visit: Yes Status: Acute Patient successfully extubated today. Saturating well on room air. Albuterol available when necessary. Symbicort twice a day (4) Hypothyroidism Current Visit: Yes Status: Acute Patient reports taking levothyroxine daily and however at present she is lethargic and poor historian. TSH was elevated on admission. Will require further clarification of levothyroxin dose and regimen for undertreatment as mental status improves. Will resume patient's home medications. Qualifiers: Hypothyroidism type: unspecified Qualified Code(s): E03.9 - Hypothyroidism , unspecified (5) DVT prophylaxis Current Visit: Yes Status: Acute Continue subcutaneous heparin. History of Present Illness Consult date: 04/19/18 Requesting physician: Ramses Lewis Reason for consult: other (Intubated and ventilated) Chief complaint: Altered mental status History of present illness: Patient is a 52-year-old female with history significant for bipolar disorder and multiple suicide attempts and family reports multiple psychiatric hospitalizations. History was obtained from the chart and limited history obtained from patient at the bedside due to confusion, no family present during the evaluation. She was found yesterday evening by her children lying on the floor of her home. She was noted to be lethargic. 3 bottles of medication were found next to her. Lamictal and Seroquel bottles were empty, and tramadol had 2 tablets remaining. The patient was brought to the emergency department for further evaluation and management. She was found to be unresponsive to verbal stimuli in the ED. Was determined she was unable to protect her airway and she was intubated and placed on a ventilator. CT of the head was obtained with no acute abnormality identified. Chest x-ray did reveal pulmonary vascular congestion. Patient was extubated this morning. She denies knowledge of why she is in the hospital. She denies intentional overdose or suicidal ideations. She reports taking her medications as prescribed. She admits to anxiety. Admits to nausea and vomiting. Denies diarrhea, shortness of breath, chest pain. Past Med Surg Social Fam HX - Past Medical History Medical history: arthritis, asthma, GERD Psychiatric history: anxiety, depression, previous psychiatric hospitalization - Past Surgical History Surgical History: hysterectomy, other Additional surgical history: tonsillectomy - Social History Smoking Status: Current every day smoker Packs per day: 2 Smokeless Tobacco Status: No Alcohol use: none Drug use: none - Family History Mother Living Status: Hx Family Endocrine Disorder: Yes (kidney failure) Medications and Allergies Cholecalciferol (D-3) [Vitamin D] 2,000 unit PO DAILY 09/28/16 [History] Desvenlafaxine Succinate [Pristiq] 100 mg PO DAILY 09/28/16 [History] Fluticasone Propionate Nasal [Flonase] 50 mcg NS DAILY 09/28/16 [History] Levothyroxine [Synthroid] 50 mcg PO DAILY 09/28/16 [History] Meloxicam [Mobic] 15 mg PO DAILY 09/28/16 [History] Montelukast [Singulair] 10 mg PO DAILY 09/28/16 [History] Propranolol [Inderal] 10 mg PO TID 09/28/16 [History] Topiramate [Topamax] 100 mg PO BID 09/28/16 [History] Acetaminophen [Tylenol] 650 mg PO Q6HR PRN tablet 11/19/17 [Rx] Fluticasone/Salmeterol [Advair 250-50 Diskus] 1 puff IH BID 11/19/17 [History] hydrOXYzine HCl [Hydroxyzine HCl] 50 - 100 mg PO HS PRN 11/19/17 [History] hydrOXYzine HCl [Hydroxyzine HCl] 50 mg PO QAM 11/19/17 [History] Ondansetron ODT [Zofran ODT] 4 mg SL Q6HR PRN #10 tab.rapdis 01/21/18 [Rx] Albuterol Sulfate [Albuterol Inhaler] 2 puff IH Q4H PRN 04/19/18 [History] Gabapentin [Neurontin] 300 mg PO QID 04/19/18 [History] Omeprazole [PriLOSEC] 40 mg PO DAILY 04/19/18 [History] Quetiapine Fumarate [Seroquel] 200 mg PO HS 04/19/18 [History] Ranitidine HCl [Acid Environmental Field Professional] 150 mg PO BID 04/19/18 [History] lamoTRIgine [Lamotrigine] 200 mg PO DAILY 04/19/18 [History] 3 Allergy/AdvReac Type Severity Reaction Status Date / Time aspirin Allergy Hives Verified 01/21/18 16:34 influenza virus vacc Allergy Swelling Verified 01/21/18 16:34 trivalent, split of [From Fluzone] Lip/Tongue/Throat latex Allergy Itching Verified 01/21/18 16:34 Penicillins Allergy Anaphylaxis Verified 01/21/18 16:34 ROS unobtainable: due to mental status (Limited evaluation of systems due to patient mental status) All Systems: The remainder of the systems were reviewed and are negative - Constitutional Constitutional: headache(s), lethargy - EENT Eyes: no loss of vision Nose, mouth and throat: no dizziness - Cardiovascular Cardiovascular: no chest pain - Respiratory Respiratory: no dyspnea - Gastrointestinal Gastrointestinal: nausea, vomiting, no abdominal pain, no diarrhea - Neurological Neurological: confusion - Psychiatric Psychiatric: anxiety, no suicidal ideation Physical Examination Vital Signs: Vital Signs, Last 4 Hours Temp Pulse Resp BP Pulse Ox 04/20/18 09:00 105 16 86/61 100 04/20/18 08:28 98.8 F 04/20/18 08:00 107 16 82/63 100 04/20/18 07:35 20 93/71 100 04/20/18 07:00 112 18 91/63 100 04/20/18 06:38 15 100 04/20/18 06:00 106 16 83/61 100 General appearance: no acute distress, lethargic Eyes: nonicteric ENT: oropharynx moist Neck: supple, no lymphadenopathy Effort: normal Inspection: normal Auscultation: bilateral: clear Cardiovascular: regular rate and rhythm (Tachycardic) Gastrointestinal: normoactive bowel sounds, soft, non-distended Integumentary: normal Extremities: no cyanosis, no edema, no clubbing, pink and warm Musculoskeletal: no deformities Gait: normal posture non-focal exam, other (Alert and oriented 2) anxious Ventilator Settings Ventilator Settings: Ventilator Settings, Last 8 Hours Ventilator Tidal Volume 450 Setting Ventilator Tidal Volume 450 Setting Ventilator Tidal Volume 450 Setting Ventilator Tidal Volume 450 Setting Ventilator Tidal Volume 450 Setting Ventilator Tidal Volume 450 Setting Ventilator Tidal Volume 450 Setting Ventilator Respiratory Rate 16 Setting Ventilator Respiratory Rate 16 Setting Ventilator Respiratory Rate 16 Setting Ventilator Respiratory Rate 16 Setting Ventilator Respiratory Rate 16 Setting Ventilator Respiratory Rate 16 Setting Ventilator Respiratory Rate 16 Setting Actual Respiratory Rate 17 Actual Respiratory Rate 16 Actual Respiratory Rate 16 Actual Respiratory Rate 17 Actual Respiratory Rate 16 Actual Respiratory Rate 16 Actual Respiratory Rate 17 Positive End Expiratory 5 Pressure Positive End Expiratory 5 Pressure Positive End Expiratory 5 Pressure Positive End Expiratory 5 Pressure Positive End Expiratory 5 Pressure Positive End Expiratory 5 Pressure Positive End Expiratory 5 Pressure Positive End Expiratory 5 Pressure Peak Inspiratory Airway 10 Pressure Peak Inspiratory Airway 21 Pressure Peak Inspiratory Airway 16 Pressure Peak Inspiratory Airway 17 Pressure Peak Inspiratory Airway 16 Pressure Peak Inspiratory Airway 16 Pressure Peak Inspiratory Airway 16 Pressure Results - Laboratory Findings CBC and BMP: 04/20/18 03:06 04/20/18 11:36 ABG ABG pH 7.38 pH Units (7.32-7.45) 04/20/18 06:11 ABG pCO2 39 mmHg (35-45) 04/20/18 06:11 ABG pO2 118 mmHg (85-104) H 04/20/18 06:11 ABG O2 Saturation 99 % (95-98) H 04/20/18 06:11 PT/INR, D-dimer PT 11.6 Seconds (9.4-12.1) 04/20/18 03:06 Abnormal lab findings: Abnormal lab results RBC 3.79 M/mcL (3.82-4.97) L 04/20/18 03:06 Hgb 11.0 g/dL (11.5-15.4) L 04/20/18 03:06 Hct 33.9 % (35.3-44.9) L 04/20/18 03:06 ABG pO2 118 mmHg (85-104) H 04/20/18 06:11 ABG O2 Saturation 99 % (95-98) H 04/20/18 06:11 Potassium 3.0 mEq/L (3.5-5.1) L 04/20/18 03:06 Chloride 113 mEq/L (98-107) H 04/20/18 03:06 Carbon Dioxide 21 mEq/L (23-29) L 04/20/18 03:06 Glucose 125 mg/dL (70-105) H 04/20/18 03:06 POC Glucose 113 mg/dL (70-99) H 04/19/18 23:45 Calcium 8.4 mg/dL (8.6-10.3) L 04/20/18 03:06 AST 12 Units/L (13-39) L 04/19/18 15:07 TSH 7.442 mcIU/mL (0.340-5.600) H 04/20/18 03:06 Free T4 0.68 ng/dl (0.70-2.00) L 04/20/18 03:06 Salicylates < 2.5 mg/dL (15.0-30.0) L 04/19/18 15:07 Acetaminophen < 10 mcg/mL (10-20) L 04/19/18 15:07 - Clinical Findings Intake & Output: Intake & Output 04/19/18 04/20/18 04/20/18 23:59 07:59 15:59 Intake Total 3134 / 3134 96 / 96 Output Total 1750 / 1750 600 / 600 400 / 400 Balance 1384 / 1384 -504 / -504 -400 / -400 Weight 67.4 kg 67.4 kg Consult Discharge Plan - Plan Additional Instructions: 1. Continue medical stabilization of the patient 2. When medically stable admits to [facility] for further treatment. Referrals: Melida Montez MD [Primary Care Provider] - <Peggy Frye - Last Filed: 04/20/18 16:30> Date of Encounter: 04/20/18 All Systems: The remainder of the systems were reviewed and are negative Physical Examination Vital Signs: Vital Signs, Last 4 Hours Temp Pulse Resp BP Pulse Ox 04/20/18 09:00 105 16 86/61 100 04/20/18 08:28 98.8 F 04/20/18 08:00 107 16 82/63 100 04/20/18 07:35 20 93/71 100 04/20/18 07:00 112 18 91/63 100 Ventilator Settings Ventilator Settings: Ventilator Settings, Last 8 Hours Ventilator Tidal Volume 450 Setting Ventilator Tidal Volume 450 Setting Ventilator Tidal Volume 450 Setting Ventilator Tidal Volume 450 Setting Ventilator Tidal Volume 450 Setting Ventilator Tidal Volume 450 Setting Ventilator Respiratory Rate 16 Setting Ventilator Respiratory Rate 16 Setting Ventilator Respiratory Rate 16 Setting Ventilator Respiratory Rate 16 Setting Ventilator Respiratory Rate 16 Setting Ventilator Respiratory Rate 16 Setting Actual Respiratory Rate 17 Actual Respiratory Rate 16 Actual Respiratory Rate 16 Actual Respiratory Rate 17 Actual Respiratory Rate 16 Actual Respiratory Rate 16 Positive End Expiratory 5 Pressure Positive End Expiratory 5 Pressure Positive End Expiratory 5 Pressure Positive End Expiratory 5 Pressure Positive End Expiratory 5 Pressure Positive End Expiratory 5 Pressure Positive End Expiratory 5 Pressure Peak Inspiratory Airway 10 Pressure Peak Inspiratory Airway 21 Pressure Peak Inspiratory Airway 16 Pressure Peak Inspiratory Airway 17 Pressure Peak Inspiratory Airway 16 Pressure Peak Inspiratory Airway 16 Pressure Results - Laboratory Findings CBC and BMP: 04/20/18 03:06 04/20/18 11:36 ABG ABG pH 7.38 pH Units (7.32-7.45) 04/20/18 06:11 ABG pCO2 39 mmHg (35-45) 04/20/18 06:11 ABG pO2 118 mmHg (85-104) H 04/20/18 06:11 ABG O2 Saturation 99 % (95-98) H 04/20/18 06:11 PT/INR, D-dimer PT 11.6 Seconds (9.4-12.1) 04/20/18 03:06 Abnormal lab findings: Abnormal lab results RBC 3.79 M/mcL (3.82-4.97) L 04/20/18 03:06 Hgb 11.0 g/dL (11.5-15.4) L 04/20/18 03:06 Hct 33.9 % (35.3-44.9) L 04/20/18 03:06 ABG pO2 118 mmHg (85-104) H 04/20/18 06:11 ABG O2 Saturation 99 % (95-98) H 04/20/18 06:11 Potassium 3.0 mEq/L (3.5-5.1) L 04/20/18 03:06 Chloride 113 mEq/L (98-107) H 04/20/18 03:06 Carbon Dioxide 21 mEq/L (23-29) L 04/20/18 03:06 Glucose 125 mg/dL (70-105) H 04/20/18 03:06 POC Glucose 113 mg/dL (70-99) H 04/19/18 23:45 Calcium 8.4 mg/dL (8.6-10.3) L 04/20/18 03:06 AST 12 Units/L (13-39) L 04/19/18 15:07 TSH 7.442 mcIU/mL (0.340-5.600) H 04/20/18 03:06 Free T4 0.68 ng/dl (0.70-2.00) L 04/20/18 03:06 Salicylates < 2.5 mg/dL (15.0-30.0) L 04/19/18 15:07 Acetaminophen < 10 mcg/mL (10-20) L 04/19/18 15:07 - Clinical Findings Intake & Output: Intake & Output 04/19/18 04/20/18 04/20/18 23:59 07:59 15:59 Intake Total 3134 / 3134 96 / 96 Output Total 1750 / 1750 600 / 600 400 / 400 Balance 1384 / 1384 -504 / -504 -400 / -400 Weight 67.4 kg 67.4 kg - Attending Attestation I examined this patient and my medical decision-making was reviewed with the Resident Physician. I agree with the documented findings, disposition and treatment plan as described except to the extent set forth below. Patient seen and examined. Labs, radiology, chart personally reviewed. Agree with resident's history and physical, assessment, plan with following comments: ORTHODONTIC TREATMENT COORDINATOR: Patient follows commands, Sometimes she is confused but mostly appropriate and psych evaluation was requested. Pulmonary: Acceptable oxygenation and ventilation and she tolerated her SBT and extubated successfully and she denies any respiratory symptoms and she is not in any distress clinically. Cardiovascular: stable. Follow up ECG for QT interval prolongation. Patient needs to be on a telemetry bed after transferring from ICU because of the risk of cardiovascular and arrhythmias with medication that she took. GI: Nutrition per dietary and GI prophylaxis per routine Heme: DVT prophylaxis per routine Renal; urine out put and renal funtion reviewed Endorcine: blood glucose is monitored. Resume her home medication. Lines: all lines checked and no evidence of infections Skin: skin care to prevent pressure ulcers per nursing routine care Psych: consultation to psych and she has previous history of suicidal attempt. Patient could be at risk of seizures because of her medications and also withdrawal however that will be unlikely. Transfer to tele bed.
[2018-04-20] MEDS ORDERED: Ibuprofen 600 MG TABLET PO PRN (11:07)
--- NOTE | 2018-04-20 11:12 | Electrocardiograph Report ---
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
[2018-04-20] MEDS: Budesonide/Formoterol 160/4.5 1 PUFF INH IH SCH ×2 (11:24→19:54)
[2018-04-20 12:11] LABS: BUN/Creatinine Ratio 12 (6-26); Blood Urea Nitrogen 10 mg/dL (6-20); Calcium 8.7 mg/dL (8.6-10.3); Carbon Dioxide 23 mEq/L (23-29); Chloride 112 mEq/L (98-107); Glucose 129 mg/dL (70-105); Osmolality,Calculated 297 (280-300); Potassium 3.1 mEq/L (3.5-5.1); Sodium 143 mEq/L (136-145); eGFR For Non-African Americans > 60 (> 60)
[2018-04-20] MEDS ORDERED: Magnesium Oxide 400 MG TABLET PO ONE ×3 (14:45→21:00)
--- NOTE | 2018-04-20 15:05 | Consult Note ---
Date of Encounter: 04/20/18 Time of Encounter: 14:30 History of Present Illness Patient: known to practice within the last 3 years Requesting Physician: Ramses Lewis Reason for consult: Suicide attempt by overdose History of present illness: Ms. Allen is a 52 year old female admitted to ICU for evaluation treatment of suicide attempt by overdose on multiple medication including Lamictal and Seroquel and tramadol. Circumstances of the suicide attempt are not clear at this time and patient is not able to give information or details. Patient however has a history of bipolar disorder and multiple suicide attempts in the past and most recently she was hospitalized in [place] in 2017 resendiz 2017 was a suicide attempt by overdose on Xanax. Prior to this in 2010 patient had suicide attempt by cutting her wrist. Patient required intubation to maintain her breathing and was extubated earlier today. Patient continued to be monitored by the medical team follow recommendation from poison control center to monitor her respiratory status and QT. On interview the patient was very lethargic and unable to provide answer to questions speech was slurred and was not able to participate in interview. CC: Ramses Lewis Past Med Surg Social Fam HX - Past Medical History Medical history: arthritis, asthma, GERD - Past Psychiatric History Psychiatric history: Reports: bipolar, prior suicide attempt, previous psychiatric hospitalization Past psychiatric history details: Most recent hospitalization in 09/28/2016 for overdose on Xanax at [place] - Past Surgical History Surgical History: hysterectomy, other - Social History Smoking Status: Current every day smoker Smokeless Tobacco Status: No Alcohol use: none Drug use: none - Family History Mother Living Status: Hx Family Endocrine Disorder: Yes (kidney failure) Medications & Allergies Cholecalciferol (D-3) [Vitamin D] 2,000 unit PO DAILY 09/28/16 [History] Desvenlafaxine Succinate [Pristiq] 100 mg PO DAILY 09/28/16 [History] Fluticasone Propionate Nasal [Flonase] 50 mcg NS DAILY 09/28/16 [History] Levothyroxine [Synthroid] 50 mcg PO DAILY 09/28/16 [History] Meloxicam [Mobic] 15 mg PO DAILY 09/28/16 [History] Montelukast [Singulair] 10 mg PO DAILY 09/28/16 [History] Propranolol [Inderal] 10 mg PO TID 09/28/16 [History] Topiramate [Topamax] 100 mg PO BID 09/28/16 [History] Acetaminophen [Tylenol] 650 mg PO Q6HR PRN tablet 11/19/17 [Rx] Fluticasone/Salmeterol [Advair 250-50 Diskus] 1 puff IH BID 11/19/17 [History] hydrOXYzine HCl [Hydroxyzine HCl] 50 - 100 mg PO HS PRN 11/19/17 [History] hydrOXYzine HCl [Hydroxyzine HCl] 50 mg PO QAM 11/19/17 [History] Ondansetron ODT [Zofran ODT] 4 mg SL Q6HR PRN #10 tab.rapdis 01/21/18 [Rx] Albuterol Sulfate [Albuterol Inhaler] 2 puff IH Q4H PRN 04/19/18 [History] Gabapentin [Neurontin] 300 mg PO QID 04/19/18 [History] Omeprazole [PriLOSEC] 40 mg PO DAILY 04/19/18 [History] Quetiapine Fumarate [Seroquel] 200 mg PO HS 04/19/18 [History] Ranitidine HCl [Acid Senior Systems Software Engineer] 150 mg PO BID 04/19/18 [History] lamoTRIgine [Lamotrigine] 200 mg PO DAILY 04/19/18 [History] 3 Allergy/AdvReac Type Severity Reaction Status Date / Time aspirin Allergy Hives Verified 01/21/18 16:34 influenza virus vacc Allergy Swelling Verified 01/21/18 16:34 trivalent, split of [From Fluzone] Lip/Tongue/Throat latex Allergy Itching Verified 01/21/18 16:34 Penicillins Allergy Anaphylaxis Verified 01/21/18 16:34 Review of Systems Psychiatric: Reports: depression, suicidal ideation, hopelessness Psychiatry Exam - Constitutional Vitals: Temp Pulse Resp BP Pulse Ox 98.6 F 110 18 91/65 98 04/20/18 11:24 04/20/18 13:00 04/20/18 13:00 04/20/18 13:00 04/20/18 13:00 General appearance: age & developmentally appropriate, well-groomed, well- nourished, obese - Musculoskeletal Gait: normal Station: relaxed Strength & Tone: normal for patient - Psychiatric Patient Orientation: Yes Person Level of alertness: Sedated Behavior: calm, cooperative, guarded, withdrawn, other (Lethargic) Psychomotor activity: Slowed Eye Contact: No Eye Contact Mood Description: Depressed Affect description: congruent with mood, constricted Speech Volume: Normal Speech pattern: limited, slurred Language & Vocabulary: consistent with education, limited, difficulty finding words Thought Process: Thought Blocking, Slowed Thinking Thought Content: Yes Suicidal ideation, No Homicidal ideation, No Overt delusions Perceptual Disturbances: No Auditory hallucinations, No Visual hallucinations Attention Span Ability: Unable to Focus Memory Description: Grossly Intact Patient Reliability: Questionable Historian Fund of knowledge: Yes abstraction ability, Yes aware of current events Intelligence Estimate: Average Judgment: Limited Insight: Partial Results - Labs Labs: Laboratory Last Values WBC 6.3 K/mcL (4.3-11.1) 04/20/18 03:06 RBC 3.79 M/mcL (3.82-4.97) L 04/20/18 03:06 Hgb 11.0 g/dL (11.5-15.4) L 04/20/18 03:06 Hct 33.9 % (35.3-44.9) L 04/20/18 03:06 MCV 89.4 fL (83.0-100.0) 04/20/18 03:06 MCH 29.0 pg (28.0-33.3) 04/20/18 03:06 MCHC 32.4 g/dL (31.6-35.5) 04/20/18 03:06 RDW 13.2 % (11.5-14.5) 04/20/18 03:06 Plt Count 213 K/mcL (140-400) 04/20/18 03:06 MPV 9.6 fL (9.4-12.4) 04/20/18 03:06 Immature Gran % 0.7 % (0-4) 04/19/18 15:07 Seg Neutrophils % 74.5 % 04/19/18 15:07 Lymphocytes % 16.8 % 04/19/18 15:07 Monocytes % 6.3 % 04/19/18 15:07 Eosinophils % 1.3 % 04/19/18 15:07 Basophils % 0.4 % 04/19/18 15:07 Neutrophils # 5.1 K/mcL (1.6-8.9) 04/19/18 15:07 Lymphocytes # 1.1 K/mcL (0.6-4.6) 04/19/18 15:07 Monocytes # 0.4 K/mcL (0.0-1.3) 04/19/18 15:07 Eosinophils # 0.1 K/mcL (0.0-0.6) 04/19/18 15:07 Basophils # 0.0 K/mcL (0.0-0.2) 04/19/18 15:07 PT 11.6 Seconds (9.4-12.1) 04/20/18 03:06 INR 1.0 04/20/18 03:06 Sample Site R Radial 04/20/18 06:11 ABG pH 7.38 pH Units (7.32-7.45) 04/20/18 06:11 ABG pCO2 39 mmHg (35-45) 04/20/18 06:11 ABG pO2 118 mmHg (85-104) H 04/20/18 06:11 ABG HCO3 23 mEq/L (21-27) 04/20/18 06:11 ABG Total CO2 24 mEq/L (20-26) 04/20/18 06:11 ABG O2 Saturation 99 % (95-98) H 04/20/18 06:11 ABG Base Excess -2 mEq/L (-2 to 3) 04/20/18 06:11 Rudi Test N/A 04/20/18 06:11 Respiration Rate 16 04/20/18 06:11 O2 Delivery Device Adult Vent 04/20/18 06:11 Blood Gas Modality PRVC 04/20/18 06:11 Inspired O2 30.0 (1-15=lpm [id number]%) 04/20/18 06:11 Tidal Volume 450 cc 04/20/18 06:11 PEEP 5 cm H2O 04/20/18 06:11 Sodium 143 mEq/L (136-145) 04/20/18 11:36 Potassium 3.1 mEq/L (3.5-5.1) L 04/20/18 11:36 Chloride 112 mEq/L (98-107) H 04/20/18 11:36 Carbon Dioxide 23 mEq/L (23-29) 04/20/18 11:36 BUN 10 mg/dL (6-20) 04/20/18 11:36 Creatinine 0.83 mg/dL (0.60-1.20) 04/20/18 11:36 Est GFR ( Amer) > 60 (> 60) 04/20/18 11:36 Est GFR (Non-Af Amer) > 60 (> 60) 04/20/18 11:36 BUN/Creatinine Ratio 12 (6-26) 04/20/18 11:36 Glucose 129 mg/dL (70-105) H 04/20/18 11:36 POC Glucose 113 mg/dL (70-99) H 04/19/18 23:45 Calculated Osmolality 297 (280-300) 04/20/18 11:36 Lactic Acid 1.4 mmol/L (0.5-2.2) 04/19/18 15:13 Calcium 8.7 mg/dL (8.6-10.3) 04/20/18 11:36 Phosphorus 3.0 mg/dL (2.7-4.5) 04/20/18 03:06 Magnesium 1.8 mg/dL (1.6-2.6) 04/20/18 11:36 Total Bilirubin 0.4 mg/dL (0.3-1.0) 04/19/18 15:07 AST 12 Units/L (13-39) L 04/19/18 15:07 ALT 12 Units/L (7-52) 04/19/18 15:07 Alkaline Phosphatase 95 Units/L (34-104) 04/19/18 15:07 Serum Total Protein 7.0 g/dL (6.4-8.9) 04/19/18 15:07 Albumin 4.2 g/dL (3.5-5.7) 04/19/18 15:07 Globulin 2.8 g/dL (2.4-3.5) 04/19/18 15:07 Albumin/Globulin Ratio 1.5 (1.1-2.2) 04/19/18 15:07 TSH 7.442 mcIU/mL (0.340-5.600) H 04/20/18 03:06 Free T4 0.68 ng/dl (0.70-2.00) L 04/20/18 03:06 Urine Color Yellow (Yellow) 04/19/18 15:00 Urine Clarity Clear (Clear) 04/19/18 15:00 Urine pH 6.0 pH Units (5.0-8.0) 04/19/18 15:00 Ur Specific [place] 1.013 (1.010-1.025) 04/19/18 15:00 Urine Protein Negative mg/dL (Neg-Trace) 04/19/18 15:00 Urine Glucose (UA) Normal mg/dL (Normal) 04/19/18 15:00 Urine Ketones Negative mg/dL (Negative) 04/19/18 15:00 Urine Blood Negative (Negative) 04/19/18 15:00 Urine Nitrite Negative (Negative) 04/19/18 15:00 Urine Bilirubin Negative (Negative) 04/19/18 15:00 Urine Urobilinogen Normal mg/dL (Normal) 04/19/18 15:00 Ur Leukocyte Esterase Negative (Negative) 04/19/18 15:00 Ur Culture Indicated? NO (NO) 04/19/18 15:00 Salicylates < 2.5 mg/dL (15.0-30.0) L 04/19/18 15:07 Urine Opiates Screen Negative ng/mL (Saugjz=251) 04/19/18 15:02 Acetaminophen < 10 mcg/mL (10-20) L 04/19/18 15:07 Ur Barbiturates Screen Negative ng/mL (Jxlrdb=033) 04/19/18 15:02 Ur Phencyclidine Scrn Negative ng/mL (Cutoff=25) 04/19/18 15:02 Ur Amphetamines Screen Negative ng/mL (Ultjlq=4876) 04/19/18 15:02 U Benzodiazepines Scrn Negative ng/mL (Sygvob=913) 04/19/18 15:02 Urine Cocaine Screen Negative ng/mL (Cutoff= 300) 04/19/18 15:02 U Marijuana (THC) Screen Negative ng/mL (Cutoff = 50) 04/19/18 15:02 Ur Drug Screen Interp See Below 04/19/18 15:02 - Impressions Major depression recurrent severe without psychotic features Status post overdose on multiple medication in a suicide attempt Consult Discharge Plan - Plan Additional Instructions: 1. Continue medical stabilization of the patient 2. When medically stable admits to behavioral health 1A for further treatment. Referrals: Melida Montez MD [Primary Care Provider] -
[2018-04-20] MEDS ORDERED: Naloxone 0.4 MG/ML INJ IVP PRN (16:48)
[2018-04-20] MEDS: Nicotine 21 MG PATCH.TD24 TD SCH (17:11)
[2018-04-20] MEDS: Famotidine 20 MG/2 ML VIAL IVP SCH (17:12)
[2018-04-20] MEDS: Ibuprofen 600 MG TABLET PO PRN (20:21)
[2018-04-20] MEDS ORDERED: Melatonin 3 MG TABLET PO PRN (22:09)
[2018-04-21] MEDS: *HR* Heparin 5,000 UNIT/ML VIAL SQ SCH ×4 (06:06→21:49)
[2018-04-21] MEDS: Famotidine 20 MG/2 ML VIAL IVP SCH ×2 (06:07→17:22)
[2018-04-21] MEDS: Budesonide/Formoterol 160/4.5 1 PUFF INH IH SCH ×2 (07:54→22:00)
[2018-04-21] MEDS: Nicotine 21 MG PATCH.TD24 TD SCH (09:13)
[2018-04-21] MEDS: Ibuprofen 600 MG TABLET PO PRN (09:17)
--- NOTE | 2018-04-21 10:31 | Internal Med Progress Note ---
Hospitalist Progress Note - Encounter Date of Encounter: 04/21/18 Time of Encounter: 10:20 - Subjective Interval History: Patient seen and examined this morning. More awake and alert. Complaining of sore throat. Denies V/D, slightly nauseaus. No fever, chills, urinary complains. - Exam Vitals: Temp Pulse Resp BP Pulse Ox 98.4 F 93 15 102/63 96 04/21/18 09:38 04/21/18 09:38 04/21/18 09:38 04/21/18 09:38 04/21/18 09:38 Exam: Respiratory: CTAB, no crackles and wheezes bilaterally. CVS: Regular, tachycardic. NO MRG . Normal pulses GI: Abdomen is flat and soft with no palpable mass or visceromegaly. : There is no tenderness in patient's flanks bilaterally. Neuro exam: AOx3, following commands and moving all extremities, No focal deficits Muscuoskeletal: No deformity, edema Skin; No rash noted. - Assessment and Plan (1) Suicide attempt by multiple drug overdose Current Visit: Yes Status: Acute (2) Bipolar disorder Current Visit: Yes Status: Acute (3) Asthma with COPD Current Visit: Yes Status: Acute - Summary of Assessment and Plan Summary of Assessment and Plan: Suicidal attempt by Drug overdse - mentioned OD on seroquel. But also possibly lamictal. - UA and Utox unremarkable. - Will get bmp, magnesium and phosphorous as well as ekg - Psych following - Likely stable to be discharge to inpatient psych tomorrow. Hypokalemia - Will f/u bmp and replete as needed. ARF - Now extubated. - Resolved - Saturating 96 on room air. Asthma and COPD - prn duonebs - c/w symbicort Hypothyroidism - elevated TSH. - Resume levothyroxin - Will need dosage adjustment on discharge and close follow up. AMS - CT of the brain unremarkable Severe bipolar disorder. - Management per psychiatry - Will transfer DVT ppx - Heparin sc - Time Spent with Patient Total time spent is greater than 50% in coordination of care (as documented) at patient's floor/unit and/or counseling patient: Internal Medicine: Result - Labs CBC & Chem 7: 04/20/18 03:06 04/20/18 11:36 Labs: BMP 04/20/18 11:36 Sodium 143 Potassium 3.1 L Chloride 112 H Carbon Dioxide 23 BUN 10 Creatinine 0.83 Glucose 129 H Calcium 8.7 - ABG Interpretation ABG results: ABG ABG pH 7.38 pH Units (7.32-7.45) 04/20/18 06:11 ABG pCO2 39 mmHg (35-45) 04/20/18 06:11 ABG pO2 118 mmHg (85-104) H 04/20/18 06:11 ABG O2 Saturation 99 % (95-98) H 04/20/18 06:11 PT/INR, D-dimer PT 11.6 Seconds (9.4-12.1) 04/20/18 03:06 - VTE Deep Vein Thrombosis/Pulmonary Embolism Present on Admission: No Consult Discharge Plan - Plan Additional Instructions: 1. Continue medical stabilization of the patient 2. When medically stable admits to behavioral health 1A for further treatment. Referrals: Melida Montez MD [Primary Care Provider] - (1) Suicide attempt by multiple drug overdose Qualifiers: Encounter type: initial encounter Qualified Code(s): T50.902A - Poisoning by unspecified drugs, medicaments and biological substances, intentional self-harm , initial encounter (2) Bipolar disorder Qualifiers: Active/Remission status: currently active Current bipolar episode type: depressed Current episode severity: unspecified Qualified Code(s): F31.30 - Bipolar disorder, current episode depressed, mild or moderate severity, unspecified
[2018-04-21 11:24] LABS: BUN/Creatinine Ratio 11 (6-26); Blood Urea Nitrogen 9 mg/dL (6-20); Calcium 8.7 mg/dL (8.6-10.3); Carbon Dioxide 19 mEq/L (23-29); Chloride 109 mEq/L (98-107); Glucose 156 mg/dL (70-105); Magnesium 1.7 mg/dL (1.6-2.6); Osmolality,Calculated 288 (280-300); Potassium 3.2 mEq/L (3.5-5.1); Sodium 138 mEq/L (136-145); eGFR For Non-African Americans > 60 (> 60)
[2018-04-21] MEDS ORDERED: Ondansetron 4 MG/2 ML VIAL IVP ONE ×2 (15:20→19:40)
[2018-04-21] MEDS ORDERED: *HR* Promethazine 25 MG/ML VIAL IVP ONE (21:28)
[2018-04-22] MEDS ORDERED: Ondansetron 4 MG/2 ML VIAL IVP ONE (00:08)
[2018-04-22] MEDS ORDERED: 0.9 % Sodium Chloride 1,000 ML IVC SCH (00:15)
[2018-04-22] MEDS ORDERED: Isovue-370 500 ML INFUS..BTL IV ONE (01:55)
[2018-04-22] MEDS: Pantoprazole 40 MG in 0.9 % Sodium Chloride Mini Bag 100 ML IVC SCH ×2 (02:51→06:27)
[2018-04-22] MEDS ORDERED: GI Cocktail 40 ML EACH PO ONE (03:16)
[2018-04-22 03:21] LABS: Hematocrit 33.8 % (35.3-44.9); Hemoglobin 11.5 g/dL (11.5-15.4)
--- NOTE | 2018-04-22 04:08 | Event Note ---
Date of Encounter: 04/22/18 Time of Encounter: 03:00 0300: I was contacted by the patient's nurse due to patient having persistent vomiting despite multiple medications including Zofran and Phenergan. The patient additionally has had a change in color to read with streaks of what appears to be blood in the vomit. This is according to the nurse on the patient 's sitter because the patient is on one-to-one at this time. I did go to see the patient and she is complaining of persistent nausea with vomiting. On examination the vomitus does appear to be pink to red in color streaks of brown material that is hard to identify. On examination, the patient has significantly tender to palpation epigastric region however no obvious peritoneal signs. She does complain of significant abdominal pain. Because of concern for possible GI bleed in this setting given her history and use of NSAIDs as well as persistent intractable nausea and vomiting, I did order a Protonix drip as well as a abdominal CT with IV contrast. CT demonstrated no acute findings within the abdomen or pelvis although it did demonstrate a hiatal hernia with a right lower lobe pneumonia versus aspiration. Given that the patient currently has no fever, white count, hypoxia or shortness of breath , I chose not to give the patient any antibiotics at this time but rather to watch her for signs and symptoms of pneumonia. I did continue the Protonix drip and enter a GI consult for suspicion of GI bleed, and entered serial hemoglobin and hematocrits to continue monitoring.
[2018-04-22] MEDS ORDERED: *HR* LORazepam 2 MG/ML VIAL IVP ONE (04:16)
[2018-04-22] MEDS: *HR* Heparin 5,000 UNIT/ML VIAL SQ SCH ×3 (05:46→22:27)
[2018-04-22] MEDS: Budesonide/Formoterol 160/4.5 1 PUFF INH IH SCH ×2 (07:39→19:54)
[2018-04-22] MEDS: Nicotine 21 MG PATCH.TD24 TD SCH (08:10)
[2018-04-22 09:17] LABS: Hematocrit 31.9 % (35.3-44.9); Hemoglobin 10.9 g/dL (11.5-15.4)
[2018-04-22 09:34] LABS: BUN/Creatinine Ratio 16 (6-26); Blood Urea Nitrogen 11 mg/dL (6-20); Calcium 8.9 mg/dL (8.6-10.3); Carbon Dioxide 20 mEq/L (23-29); Chloride 108 mEq/L (98-107); Glucose 126 mg/dL (70-105); Osmolality,Calculated 287 (280-300); Potassium 3.3 mEq/L (3.5-5.1); Sodium 138 mEq/L (136-145); eGFR For Non-African Americans > 60 (> 60)
--- NOTE | 2018-04-22 11:34 | Internal Med Progress Note ---
Hospitalist Progress Note - Encounter Date of Encounter: 04/22/18 Time of Encounter: 08:46 - Subjective Interval History: Patient seen and examined this morning. Awake and alert. Overnight events noted. Still with some sore throat. Still nauseaus. No fever, chills, urinary complains. Complains of some shortness of breath and epigastric dyscomfort. - Exam Vitals: Temp Pulse Resp BP Pulse Ox 98.3 F 90 12 115/70 95 04/22/18 10:49 04/22/18 10:49 04/22/18 10:49 04/22/18 10:49 04/22/18 10:49 Exam: Respiratory: Rt lower lung crackles. Good air entry. CVS: RRR. NO MRG . Normal pulses GI: Mild epigastric tenderness. Abdomen is flat and soft with no palpable mass or visceromegaly. : There is no tenderness in patient's flanks bilaterally. Neuro: AOx3, following commands and moving all extremities, No focal deficits Muscuoskeletal: No deformity, edema Skin: No rash noted. - Assessment and Plan (1) Suicide attempt by multiple drug overdose Current Visit: Yes Status: Acute (2) Bipolar disorder Current Visit: Yes Status: Acute (3) Asthma with COPD Current Visit: Yes Status: Acute - Summary of Assessment and Plan Summary of Assessment and Plan: N/V - some blood in vomitus. Abdomen CT with no acute abdomen findings. Showed hiatal hernia and incidental finding of infiltrate in Rt lung. - Started on protonix drip and GI consulted. - Hb stable. - Unclear etiology. Possible that its related to Drug OD vs Hiatal hernia. Suicidal attempt by Drug overdose - mentioned OD on seroquel. But also possibly lamictal as well. - UA and Utox unremarkable. - Psych following - EKG without acute changes. QTc normal. - Likely stable to be discharge to inpatient psych when stable Hypokalemia - Refusing oral potassium supplementation. - start IVF with Potassium - Monitor for now Rt lung infiltrate - aspiration vs pneumonia - afebrile, no leucokytosis, not hypoxic. - Will monitor off of antibiotics as of now. Asthma and COPD - prn duonebs - c/w symbicort ARF - Now extubated. - Resolved - Saturating 96 on room air. Hypothyroidism - elevated TSH. - Resume levothyroxin - Will need dosage adjustment on discharge and close follow up. AMS - CT of the brain unremarkable Sore throat - likely related to being intubated. Severe bipolar disorder. - Management per psychiatry - Will transfer once stable DVT ppx - Heparin sc - Time Spent with Patient Total time spent is greater than 50% in coordination of care (as documented) at patient's floor/unit and/or counseling patient: Internal Medicine: Result - Labs CBC & Chem 7: 04/22/18 08:43 04/22/18 08:43 Labs: Short CBC 04/22/18 04/22/18 Range/Units 03:00 08:43 Hgb 11.5 10.9 L (11.5-15.4) g/dL Hct 33.8 L 31.9 L (35.3-44.9) % BMP 04/22/18 08:43 Sodium 138 Potassium 3.3 L Chloride 108 H Carbon Dioxide 20 L BUN 11 Creatinine 0.69 Glucose 126 H Calcium 8.9 - ABG Interpretation ABG results: ABG ABG pH 7.38 pH Units (7.32-7.45) 04/20/18 06:11 ABG pCO2 39 mmHg (35-45) 04/20/18 06:11 ABG pO2 118 mmHg (85-104) H 04/20/18 06:11 ABG O2 Saturation 99 % (95-98) H 04/20/18 06:11 PT/INR, D-dimer PT 11.6 Seconds (9.4-12.1) 04/20/18 03:06 - Impressions Impressions Abdomen CT 04/22/18 01:55 IMPRESSION: 1. No acute findings within the abdomen and pelvis. 2. Right lower lobe pneumonia or aspiration. 3. Hiatal hernia. D/ / Fran Menendez MD / Fran Menendez MD Interpreting Provider: Fran Menendez MD - VTE Deep Vein Thrombosis/Pulmonary Embolism Present on Admission: No Consult Discharge Plan - Plan Additional Instructions: 1. Continue medical stabilization of the patient 2. When medically stable admits to behavioral health 1A for further treatment. Referrals: Melida Montez MD [Primary Care Provider] - (1) Suicide attempt by multiple drug overdose Qualifiers: Encounter type: initial encounter Qualified Code(s): T50.902A - Poisoning by unspecified drugs, medicaments and biological substances, intentional self-harm , initial encounter (2) Bipolar disorder Qualifiers: Active/Remission status: currently active Current bipolar episode type: depressed Current episode severity: unspecified Qualified Code(s): F31.30 - Bipolar disorder, current episode depressed, mild or moderate severity, unspecified
--- NOTE | 2018-04-22 11:40 | Gastroenterology Consult Note ---
<Chelsea Garcia - Last Filed: 04/22/18 11:42> Date of Encounter: 04/22/18 Time of Encounter: 09:30 - Assessment and plan (1) Hematemesis with nausea Current Visit: Yes Status: Acute Assessment and plan: Will plan for EGD today to rule out esophagitis, gastritis, duodenitis, PUD, MW tear or AVM. Continue protonix, no nsaids. (2) LUQ abdominal pain Current Visit: Yes Status: Acute Assessment and plan: Per pts records has been ongoing complaint. She is status post EGD and cholecystetomy by Dr Mitchell. CT abdomen was normal except for large hiatal hernia. (3) Suicide attempt by multiple drug overdose Current Visit: Yes Status: Acute Qualifiers: Encounter type: initial encounter Qualified Code(s): T50.902A - Poisoning by unspecified drugs, medicaments and biological substances, intentional self- harm, initial encounter (4) Diarrhea Current Visit: Yes Status: Acute Assessment and plan: Pt is complaining of watery diarrhea, will order stool studies. Qualifiers: Diarrhea type: unspecified type Qualified Code(s): R19.7 - Diarrhea, unspecified - Time Spent With Patient Total time spent is greater than 50% in coordination of care (as documented) at patient's floor/unit and/or counseling patient: GI History of Present Illness - Data of Consult Patient: new to practice Consult date: 04/22/18 Requesting Physician: Stephan Tucker MD - Consult Narrative Reason for consult: nausea, vomiting, hemetemesis History of present illness: Ms. Allen is a 52 year old female with severe bipolar disorder, asthma/COPD, inhalant allergies, hypothyroidism, restless leg syndrome and some arthritis in multiple locations (low back, hips and knees). She was admitted following an intentional overdose on Seroquel and Lamictal at home. She was found unresponsive and was intubated in the ER. She has since been extubated, and is complaining of persistent nausea and vomiting. This morning the vomitus was found to have streaky hematemesis. CT of the abdomen shows a hiatal hernia. She does admit to chronic GERD and left upper quadrant pain. She also complains of watery diarrhea that has been ongoing since before being hospitalized. She denies any melena or bright red rectal bleeding. She had cholecystectomy in November 2017 and an EGD and October [address] mitchell. She underwent to taking ibuprofen as needed for pain. She has been on subcutaneous heparin prophylaxis while in the hospital. colon: denies EGD: 10/22 ([facility]) [place] grade D esophagitis, benign gastric polyps, large hiatal hernia, normal duodenum, negative for H pylori. NSAIDS: ibuprofen anticoagulants: sq heparin Past Med Surg Social Fam HX - Past Medical History Medical history: arthritis, asthma, GERD Psychiatric history: anxiety, depression, previous psychiatric hospitalization - Past Surgical History Surgical History: hysterectomy, other Additional surgical history: tonsillectomy - Social History Smoking Status: Current every day smoker Packs per day: 2 Smokeless Tobacco Status: No Alcohol use: none Drug use: none - Family History Mother Living Status: Hx Family Endocrine Disorder: Yes (kidney failure) Review of Systems: GI: as per [place] [facility]: denies fever, has some chills EYES: denies yellow discoloration ENT: denies pain with swallowing or difficulty swallowing CARDIO: denies chest pain, palpitations RESP: Shortness of breath with exertion : denies change in color of urine NEURO: denies any weakness HEME: Denies any bruising MS: joint pain, joint swelling or back pain. DERM: denies rash or itching PSYCH: see HPI - Constitutional Vitals: Temp Pulse Resp BP Pulse Ox 98.3 F 90 12 115/70 95 04/22/18 10:49 04/22/18 10:49 04/22/18 10:49 04/22/18 10:49 04/22/18 10:49 Exam: CONSTITUTIONAL:~alert, no acute distress.~HEAD:~normocephalic.~EYES:~no jaundice.~NECK:~no obvious swelling.~HEART:~regular rate and rhythm, no murmurs. ~LUNGS:~bilateral fair air entry.~ABDOMEN:~non distended, soft, tender epigastric area, no masses palpable, no organomegaly.~RECTAL EXAM:~Deferred.~ EXTREMITIES:~no clubbing, cyanosis or edema.~SKIN:~pallor noted, multiple tattoos, no stigmata of chronic liver disease.~NEUROLOGIC:~no obvious focal defect.~~~~ Results - Labs CBC & Chem 7: 04/22/18 08:43 04/22/18 08:43 Labs: Last Result Calcium 8.9 mg/dL (8.6-10.3) 04/22/18 08:43 Salicylates < 2.5 mg/dL (15.0-30.0) L 04/19/18 15:07 Urine Opiates Screen Negative ng/mL (Eeaagi=045) 04/19/18 15:02 Entire Visit Hgb 10.9 g/dL (11.5-15.4) L 04/22/18 08:43 Hct 31.9 % (35.3-44.9) L 04/22/18 08:43 PT 11.6 Seconds (9.4-12.1) 04/20/18 03:06 Total Bilirubin 0.4 mg/dL (0.3-1.0) 04/19/18 15:07 AST 12 Units/L (13-39) L 04/19/18 15:07 ALT 12 Units/L (7-52) 04/19/18 15:07 Acetaminophen < 10 mcg/mL (10-20) L 04/19/18 15:07 - ABG ABG results: ABG ABG pH 7.38 pH Units (7.32-7.45) 04/20/18 06:11 ABG pCO2 39 mmHg (35-45) 04/20/18 06:11 ABG pO2 118 mmHg (85-104) H 04/20/18 06:11 ABG O2 Saturation 99 % (95-98) H 04/20/18 06:11 PT/INR, D-dimer PT 11.6 Seconds (9.4-12.1) 04/20/18 03:06 - Impressions Impressions Abdomen CT 04/22/18 01:55 IMPRESSION: 1. No acute findings within the abdomen and pelvis. 2. Right lower lobe pneumonia or aspiration. 3. Hiatal hernia. D/ / Fran Menendez MD / Fran Menendez MD Interpreting Provider: Fran Menendez MD Consult Discharge Plan - Plan Additional Instructions: 1. Continue medical stabilization of the patient 2. When medically stable admits to behavioral health 1A for further treatment. Referrals: Melida Montez MD [Primary Care Provider] - <Ligia Villa - Last Filed: 04/22/18 17:44> Date of Encounter: 04/22/18 Time of Encounter: 13:00 - Time Spent With Patient Total time spent is greater than 50% in coordination of care (as documented) at patient's floor/unit and/or counseling patient: GI History of Present Illness - Data of Consult Requesting Physician: Stephan Tucker MD - Consult Narrative History of present illness: Ms. Allen is a 52 year old female - Constitutional Vitals: Temp Pulse Resp BP Pulse Ox 98.2 F 90 12 130/81 96 04/22/18 14:09 04/22/18 14:09 04/22/18 14:09 04/22/18 14:09 04/22/18 14:09 Results - Labs CBC & Chem 7: 04/22/18 13:59 04/22/18 08:43 Labs: Last Result Calcium 8.9 mg/dL (8.6-10.3) 04/22/18 08:43 Salicylates < 2.5 mg/dL (15.0-30.0) L 04/19/18 15:07 Urine Opiates Screen Negative ng/mL (Bvhkyp=092) 04/19/18 15:02 Entire Visit Hgb 11.2 g/dL (11.5-15.4) L 04/22/18 13:59 Hct 32.6 % (35.3-44.9) L 04/22/18 13:59 PT 11.6 Seconds (9.4-12.1) 04/20/18 03:06 Total Bilirubin 0.4 mg/dL (0.3-1.0) 04/19/18 15:07 AST 12 Units/L (13-39) L 04/19/18 15:07 ALT 12 Units/L (7-52) 04/19/18 15:07 Acetaminophen < 10 mcg/mL (10-20) L 04/19/18 15:07 - ABG ABG results: ABG ABG pH 7.38 pH Units (7.32-7.45) 04/20/18 06:11 ABG pCO2 39 mmHg (35-45) 04/20/18 06:11 ABG pO2 118 mmHg (85-104) H 04/20/18 06:11 ABG O2 Saturation 99 % (95-98) H 04/20/18 06:11 PT/INR, D-dimer PT 11.6 Seconds (9.4-12.1) 04/20/18 03:06 - Impressions Impressions Abdomen CT 04/22/18 01:55 IMPRESSION: 1. No acute findings within the abdomen and pelvis. 2. Right lower lobe pneumonia or aspiration. 3. Hiatal hernia. D/ / Fran Menendez MD / Fran Menendez MD Interpreting Provider: Fran Menendez MD - Attending Attestation I have personally performed a face to face evaluation on this patient. I have reviewed and agree with the care plan. History and Exam by me shows: Pt seen no active issues denies abdominal pain on examination abdomen is benign. A: A 52-year-old female with nausea vomiting and hematemesis but H&H is stable. Rec: EGD to rule out peptic ulcer disease/gastritis esophagitis
[2018-04-22] MEDS: Potassium Chloride 40 MEQ in D5% in 0.45% NACL 1,000 ML IVC SCH ×2 (12:04→22:27)
[2018-04-22] MEDS ORDERED: Lidocaine -MPF 2% 2 ML VIAL ONE (12:07)
[2018-04-22] MEDS ORDERED: *HR* Propofol 200 MG/20 ML VIAL IVP ONE (12:12)
--- NOTE | 2018-04-22 13:09 | Anesthesia Evaluation PreOp ---
Date of Encounter: 04/22/18 Time of Encounter: 13:00 - Past History Planned Operation: EGD Cardiac History: Denies any Significant Hx Pulmonary History: Smoker (20 pack year), Asthma, COPD DAILY RELEASE AND DUPE PRINTER History: Seizures, Other (Migraine on inderal) Other Medical History: Thyroid (Hypothyroid), GERD, Other (Bipolar) Anesthesia History: No Prior Anesthetic Complications : No Alcohol Use: none Drug use: none Medications and Allergies Cholecalciferol (D-3) [Vitamin D] 2,000 unit PO DAILY 09/28/16 [History] Desvenlafaxine Succinate [Pristiq] 100 mg PO DAILY 09/28/16 [History] Fluticasone Propionate Nasal [Flonase] 50 mcg NS DAILY 09/28/16 [History] Levothyroxine [Synthroid] 50 mcg PO DAILY 09/28/16 [History] Meloxicam [Mobic] 15 mg PO DAILY 09/28/16 [History] Montelukast [Singulair] 10 mg PO DAILY 09/28/16 [History] Propranolol [Inderal] 10 mg PO TID 09/28/16 [History] Topiramate [Topamax] 100 mg PO BID 09/28/16 [History] Acetaminophen [Tylenol] 650 mg PO Q6HR PRN tablet 11/19/17 [Rx] Fluticasone/Salmeterol [Advair 250-50 Diskus] 1 puff IH BID 11/19/17 [History] hydrOXYzine HCl [Hydroxyzine HCl] 50 - 100 mg PO HS PRN 11/19/17 [History] hydrOXYzine HCl [Hydroxyzine HCl] 50 mg PO QAM 11/19/17 [History] Ondansetron ODT [Zofran ODT] 4 mg SL Q6HR PRN #10 tab.rapdis 01/21/18 [Rx] Albuterol Sulfate [Albuterol Inhaler] 2 puff IH Q4H PRN 04/19/18 [History] Gabapentin [Neurontin] 300 mg PO QID 04/19/18 [History] Omeprazole [PriLOSEC] 40 mg PO DAILY 04/19/18 [History] Quetiapine Fumarate [Seroquel] 200 mg PO HS 04/19/18 [History] Ranitidine HCl [Acid Engagement Engineer] 150 mg PO BID 04/19/18 [History] lamoTRIgine [Lamotrigine] 200 mg PO DAILY 04/19/18 [History] 3 Allergy/AdvReac Type Severity Reaction Status Date / Time aspirin Allergy Hives Verified 01/21/18 16:34 influenza virus vacc Allergy Swelling Verified 01/21/18 16:34 trivalent, split of [From Fluzone] Lip/Tongue/Throat latex Allergy Itching Verified 01/21/18 16:34 Penicillins Allergy Anaphylaxis Verified 01/21/18 16:34 - Meds/Allergy Pre-op Review Medications Reviewed: Yes Allergies Reviewed: Yes Beta Blockers on Current Med List: Yes (Inderal for migraines) Anesthesia Results - Labs 04/22/18 08:43 04/22/18 08:43 - Imaging EKG: report reviewed (SR) Anesthesia Exam O2 Sat Weight 65.2 kg O2 Sat by Pulse Oximetry 95 O2 Sat by Pulse Oximetry 95 O2 Sat by Pulse Oximetry 97 O2 Sat by Pulse Oximetry 96 O2 Sat by Pulse Oximetry 96 O2 Sat by Pulse Oximetry 95 O2 Sat by Pulse Oximetry 98 Vital Signs Temp Pulse Resp BP Pulse Ox 97.4 F L 99 12 109/81 93 04/19/18 14:34 04/19/18 14:34 04/19/18 14:34 04/19/18 14:34 04/19/18 14:34 Height: 5'6 Weight: 143 lbs NPO (# of Hours): MN Pain Scale: 0 - HEENT Pupil (Motor): Pupils equal, EOMI Mallampati: II Oral Opening: Greater than 3 - DAILY RELEASE AND DUPE PRINTER LOC: Oriented DAILY RELEASE AND DUPE PRINTER Motor: Normal RUE, Normal LUE, Normal RLE, Normal LLE, Normal Face DAILY RELEASE AND DUPE PRINTER Sensory: Normal: RUE, LUE, RLE, LLE, Face - Cardiac Rhythm: Regular Murmur: None JVD: No Carotid Bruit: No - Pulmonary Breath Sounds: bilateral Clear Respiratory Effort: Symmetrical Anesthesia Assess/Plan ASA Score: 3 (Asthma Tobacco Hypothyroid Gerd Anemia Bipolar) Modified Brittany Scale for Level of Consciousness: Cooperative, oriented, and tranquil Anesthetic Plan: MAC Monitoring Plan: Standard Monitors Recovery Plan: Other (Discussed MAC, agrees to proceed)
[2018-04-22 14:23] LABS: Hematocrit 32.6 % (35.3-44.9); Hemoglobin 11.2 g/dL (11.5-15.4)
--- NOTE | 2018-04-22 14:40 | Anesthesia Evaluation Post Op ---
Date of Encounter: 04/22/18 Time of Encounter: 14:10 - Vital Signs Vital Signs: Vital Signs/O2 Sat/Glucose, Most Current Temp Pulse Resp BP Pulse Ox 04/22/18 14:09 98.2 F 90 12 130/81 96 04/22/18 12:59 99.9 F H 90 16 117/73 93 04/22/18 10:49 98.3 F 90 12 115/70 95 - Lungs Lungs: Clear Ascult./Percussion - Airway Airway: Non-obstructed - Cardiovascular Regular Rate - Mental Status Mental Status: Alert & Oriented, Answers Appropriately - Pain Pain Scale: 0 - Nausea Vomiting Nausea Vomiting: Not Present - Hydration Hydration: NPO - Discharge PostOp Status: Transfer Patient to floor
[2018-04-23] MEDS: Budesonide/Formoterol 160/4.5 1 PUFF INH IH SCH (07:34)
[2018-04-23 11:42] LABS: Basophils % 0.1 %; Eosinophils # 0.2 K/mcL (0.0-0.6); Eosinophils % 2.5 %; Hematocrit 32.8 % (35.3-44.9); Hemoglobin 10.9 g/dL (11.5-15.4); Immature Granulocytes % 1.1 % (0-4); Immature Platelets 3.2 % (1.1-6.1); Lymphocytes # 1.3 K/mcL (0.6-4.6); Lymphocytes % 15.8 %; Mean Corpuscular HGB Conc 33.2 g/dL (31.6-35.5); Mean Corpuscular Hemoglobin 28.8 pg (28.0-33.3); Mean Corpuscular Volume 86.8 fL (83.0-100.0); Mean Platelet Volume 10.8 fL (9.4-12.4); Monocytes # 0.9 K/mcL (0.0-1.3); Monocytes % 11.3 %; Neutrophils # 5.5 K/mcL (1.6-8.9); Platelet Count 182 K/mcL (140-400); Red Blood Count 3.78 M/mcL (3.82-4.97); Red Cell Distribution Width 13.2 % (11.5-14.5); Segmented Neutrophils % 69.2 %
[2018-04-23 11:55] VITALS: BP 115/76
--- NOTE | 2018-04-23 12:08 | Internal Med Progress Note ---
Hospitalist Progress Note - Encounter Date of Encounter: 04/23/18 Time of Encounter: 12:05 - Subjective Interval History: Patient seen and examined this morning. Awake and alert. nausea improved. No fever, chills, urinary complains. No diarrhea, palpitation or shortness of breath. - Exam Vitals: Temp Pulse Resp BP Pulse Ox 97.6 F 79 19 115/76 94 04/23/18 11:54 04/23/18 11:54 04/23/18 11:54 04/23/18 11:54 04/23/18 11:54 Exam: Gen: Horse voice. Respiratory: Rt lower lung crackles. Good air entry. CVS: RRR. No MRG. Normal pulses GI: Mild epigastric tenderness. Abdomen is flat and soft with no palpable mass or visceromegaly. : There is no tenderness in patient's flanks bilaterally. Neuro: AOx3, following commands and moving all extremities, No focal deficits Muscuoskeletal: No deformity, edema Skin: No rash noted. - Assessment and Plan (1) Suicide attempt by multiple drug overdose Current Visit: Yes Status: Acute (2) Bipolar disorder Current Visit: Yes Status: Acute (3) Asthma with COPD Current Visit: Yes Status: Acute - Summary of Assessment and Plan Summary of Assessment and Plan: N/V - Abdomen CT with no acute abdomen findings. Showed hiatal hernia and incidental finding of infiltrate in Rt lung. - s/p EGD by GI which showed severe esophagitis. - Start PPI and Carafate. - Hb stable. Suicidal attempt by Drug overdose - mentioned OD on seroquel. But also possibly lamictal as well. - UA and Utox unremarkable. - Psych following - EKG without acute changes. QTc normal. - f/u bmp. If no abnormality stable to be discharged to Inpatient psych. Hypokalemia - c/w IVF with Potassium - f/u BMP Rt lung infiltrate - aspiration vs pneumonia - afebrile, no leucokytosis, not hypoxic. - Will monitor off of antibiotics as of now. Asthma and COPD - prn duonebs - c/w symbicort ARF - Now extubated. - Resolved - Saturating 96 on room air. Hypothyroidism - elevated TSH. Unclear compliance with medication. - Resume levothyroxin - May need dosage adjustment on discharge and close follow up. AMS - CT of the brain unremarkable - Like toxic metabolic related to Overdose. - now resolved Sore throat - likely related to being intubated. Severe bipolar disorder. - Management per psychiatry - Will transfer later today. DVT ppx - Heparin sc - Time Spent with Patient Total time spent is greater than 50% in coordination of care (as documented) at patient's floor/unit and/or counseling patient: Internal Medicine: Result - Labs CBC & Chem 7: 04/22/18 13:59 04/22/18 08:43 Labs: Short CBC 04/22/18 Range/Units 13:59 Hgb 11.2 L (11.5-15.4) g/dL Hct 32.6 L (35.3-44.9) % - ABG Interpretation ABG results: ABG ABG pH 7.38 pH Units (7.32-7.45) 04/20/18 06:11 ABG pCO2 39 mmHg (35-45) 04/20/18 06:11 ABG pO2 118 mmHg (85-104) H 04/20/18 06:11 ABG O2 Saturation 99 % (95-98) H 04/20/18 06:11 PT/INR, D-dimer PT 11.6 Seconds (9.4-12.1) 04/20/18 03:06 - VTE Deep Vein Thrombosis/Pulmonary Embolism Present on Admission: No Consult Discharge Plan - Plan Additional Instructions: 1. Continue medical stabilization of the patient 2. When medically stable admits to behavioral health 1A for further treatment. Referrals: Melida Montez MD [Primary Care Provider] - (1) Suicide attempt by multiple drug overdose Qualifiers: Encounter type: initial encounter Qualified Code(s): T50.902A - Poisoning by unspecified drugs, medicaments and biological substances, intentional self-harm, initial encounter (2) Bipolar disorder Qualifiers: Active/Remission status: currently active Current bipolar episode type: depressed Current episode severity: unspecified Qualified Code(s): F31.30 - B ipolar disorder, current episode depressed, mild or moderate severity, unspecified
--- NOTE | 2018-04-23 13:32 | Discharge Summary ---
- NOTES TO OUTPATIENT PROVIDER Notes to Outpatient Provider: She Has esophagitis needs to be on PPI daily and Carafate for 1 week. Needs to be off NSAID given esophagitis. Her psychotic management would be adjusted based on psychiatry recommendation given her recent overdose. Orders not resulted at time of discharge: Pending orders 04/22/18 13:31 Surgical Pathology [PTH] Routine 04/23/18 11:50 Basic Metabolic Panel Routine Date of Encounter: 04/23/18 Time of Encounter: 13:29 - Discharge Diagnosis (1) Suicide attempt by multiple drug overdose Priority: Primary Status: Acute Qualifiers: Encounter type: initial encounter Qualified Code(s): T50.902A - Poisoning by unspecified drugs, medicaments and biological substances, intentional self- harm, initial encounter (2) Bipolar disorder Priority: Secondary Status: Acute Qualifiers: Active/Remission status: currently active Current bipolar episode type: depressed Current episode severity: unspecified Qualified Code(s): F31.30 - Bipolar disorder, current episode depressed, mild or moderate severity, unspecified (3) Asthma with COPD Priority: Primary Status: Acute (4) Esophagitis Priority: Primary Status: Acute Hospital course: Ms. Allen is a 52 year old female past medical history of bipolar disorder who was admitted with overdose of likely Lamictal and Seroquel. Because of altered mental status she was intubated to protect her airway and was on ventilator for one day. She was later extubated and transferred to the floor. She developed nausea and vomiting while on the floor with occasional blood streaking. Underwent EGD which showed severe esophagitis and was started on PPI and Carafate. She did not have any events on business and financial counsel. Her thyroid blood work indicated she is currently hypothyroid. Unclear about the compliance with her medication. Was resumed on her home medication. She received IV fluids with potassium supplementation to treat her hypokalemia. Patient medically stable today to be discharged to inpatient psych unit for further management of her bipolar disorder with recent history of suicidal attempt. Discharge discussed with: patient, nurse, social work - Time Spent with Patient Total time spent providing and/or coordinating discharge services: Greater than 30 minutes Specific discharge activities: 35 - Discharge Medications Home Medications: Cholecalciferol (D-3) [Vitamin D] 2,000 unit PO DAILY 09/28/16 [History] Fluticasone Propionate Nasal [Flonase] 50 mcg NS DAILY 09/28/16 [History] Levothyroxine [Synthroid] 50 mcg PO DAILY 09/28/16 [History] Montelukast [Singulair] 10 mg PO DAILY 09/28/16 [History] Propranolol [Inderal] 10 mg PO TID 09/28/16 [History] Acetaminophen [Tylenol] 650 mg PO Q6HR PRN tablet 11/19/17 [Rx] Fluticasone/Salmeterol [Advair 250-50 Diskus] 1 puff IH BID 11/19/17 [History] hydrOXYzine HCl [Hydroxyzine HCl] 50 - 100 mg PO HS PRN 11/19/17 [History] hydrOXYzine HCl [Hydroxyzine HCl] 50 mg PO QAM 11/19/17 [History] Ondansetron ODT [Zofran ODT] 4 mg SL Q6HR PRN #10 tab.rapdis 01/21/18 [Rx] Albuterol Sulfate [Albuterol Inhaler] 2 puff IH Q4H PRN 04/19/18 [History] Gabapentin [Neurontin] 300 mg PO QID 04/19/18 [History] Omeprazole [PriLOSEC] 40 mg PO DAILY 04/19/18 [History] Sucralfate [Carafate] 1 gm PO QIDAC tablet 04/23/18 [Rx] Allergies/Adverse Reactions: Allergy/AdvReac Type Severity Reaction Status Date / Time aspirin Allergy Hives Verified 01/21/18 16:34 influenza virus vacc Allergy Swelling Verified 01/21/18 16:34 trivalent, split of [From Fluzone] Lip/Tongue/Throat latex Allergy Itching Verified 01/21/18 16:34 Penicillins Allergy Anaphylaxis Verified 01/21/18 16:34 Date of admission: 04/19/18 16:19 Primary care physician: Melida Montez Consults: 04/19/18 17:57 Consult to Pulmonology [CONS] Routine Consulting Provider: [facility] [place] Reason for Consult: INT. DRUG OVERDOSE. ON VENTILATOR. Call Completed: No 04/19/18 18:01 Consult to Respiratory Therapy [CONS] Routine Reason for Consult: VENTILATOR MGT.. Call Completed: No Consult to Financial Systems Analyst [CONS] Routine Reason for SW Consult: RECURRENT SUICIDAL ATTEMPTS.. 04/19/18 18:08 Consult to Nutrition [CONS] Routine Comment: Consulting Provider: NUTRITION Reason for Dietary Consult: Tube Feed Start & Manage Other 04/20/18 04:31 Consult to Psychiatry [CONS] Routine Consulting Provider: Psychiatry [place] Reason consult: Other Other reason and/or additional details: attempted suicide by overdose Time Notified: 04:31 Call Completed: No 04/22/18 02:16 Consult to Gastroenterology [CONS] Routine Consulting Provider: Gastroenterology [place] Reason for Consult: Concern for GI bleed, hematemasis Call Completed: No Discharging clinician: Stephan Tucker - Constitutional Vitals: Temp Pulse Resp BP Pulse Ox 97.6 F 79 19 115/76 94 04/23/18 11:54 04/23/18 11:54 04/23/18 11:54 04/23/18 11:54 04/23/18 11:54 General appearance: Present: no acute distress (on vent..) Exam: Gen: Horse voice. Respiratory: Rt lower lung crackles. Good air entry. CVS: RRR. No MRG. Normal pulses GI: Mild epigastric tenderness. Abdomen is flat and soft with no palpable mass or visceromegaly. : There is no tenderness in patient's flanks bilaterally. Neuro: AOx3, following commands and moving all extremities, No focal deficits Muscuoskeletal: No deformity, edema Skin: No rash noted. - Patient Status Disposition: Home, Self-Care Condition: Critical - Discharge Instructions Follow Up With: Melida Montez MD [Primary Care Provider] - (Appointment will be made when d/c from 1-A. Thank you) Additional Instructions: 1. Continue medical stabilization of the patient 2. When medically stable admits to behavioral health 1A for further treatment. - VTE Deep Vein Thrombosis/Pulmonary Embolism Present on Admission: No
[2018-04-23] MEDS ORDERED: Nicotine 21 MG PATCH.TD24 TD ONE (13:45)
[2018-04-23] MEDS ORDERED: *HR* Heparin 5,000 UNIT/ML VIAL IVP ONE (13:45)
--- NOTE | 2018-04-23 16:05 | Electrocardiograph Report ---
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
--- NOTE | 2018-04-23 16:22 | Electrocardiograph Report ---
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
[2018-04-23] MEDS ORDERED: Sucralfate 1 GM TABLET PO SCH (16:30)
[2018-04-23 16:49] LABS: BUN/Creatinine Ratio 12 (6-26); Blood Urea Nitrogen 8 mg/dL (6-20); Calcium 8.9 mg/dL (8.6-10.3); Carbon Dioxide 21 mEq/L (23-29); Chloride 108 mEq/L (98-107); Glucose 147 mg/dL (70-105); Osmolality,Calculated 287 (280-300); Potassium 3.4 mEq/L (3.5-5.1); Sodium 138 mEq/L (136-145); eGFR For Non-African Americans > 60 (> 60)
--- NOTE | 2018-04-25 21:03 | Electrocardiograph Report ---
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
== END 2018-04-23 13:46 | disposition home or self-care (01) | DRG 817 ==
LOC: EMEROOARM 14:33 → SUATTDRO 16:19 → ICNU 16:19 → 3ANU 04-20 17:30
PROVIDERS: ADMIT Internal Medicine; ATTEND Internal Medicine
PROC: ENDOEBX (2018-04-22 14:50)

== ENCOUNTER 2018-04-23 13:29 | Observation (INO) ==
[2018-04-23] MEDS ORDERED: *HR* LORazepam 2 MG/ML VIAL IM PRN (14:20)
[2018-04-23] MEDS ORDERED: Haloperidol Lactate 5 MG/ML VIAL IM PRN (14:20)
[2018-04-23] MEDS ORDERED: Acetaminophen 325 MG TABLET PO PRN (14:20)
[2018-04-23] MEDS ORDERED: Mag Hydrox/Al Hydrox/Simeth 30 ML UDC PO PRN (14:20)
[2018-04-23] MEDS ORDERED: MOM Conc 10 ML UD.LIQ PO PRN (14:20)
[2018-04-23] MEDS ORDERED: *HR* LORazepam 1 MG TABLET PO PRN (14:20)
[2018-04-23] MEDS ORDERED: Albuterol 2.5 MG/3 ML NEBULIZER IH PRN (14:39)
[2018-04-23] MEDS: hydrOXYzine pamoate 25 MG CAPSULE PO PRN (16:00)
[2018-04-23] MEDS: traZODone 50 MG TABLET PO PRN (21:57)
[2018-04-23] MEDS ORDERED: Budesonide/Formoterol 160/4.5 1 PUFF INH IH SCH (22:00)
[2018-04-24] MEDS: hydrOXYzine pamoate 25 MG CAPSULE PO PRN (00:30)
[2018-04-24] MEDS: traZODone 50 MG TABLET PO PRN (00:30)
[2018-04-24] MEDS ORDERED: Sucralfate 1 GM TABLET PO SCH (07:30)
--- NOTE | 2018-04-24 08:03 | Internal Med History&Physical ---
Date of Encounter: 04/24/18 Time of Encounter: 07:55 Internal Medicine - H&P: HPI Chief complaint: nausea and vomiting. Admitted From: Hospital to Hospital Transfer Plans for Post Hospital Care: Home History of present illness: Ms. Allen is a 52 year old female PMH significant for severe bipolar disorder, arthritis, asthma, GERD. Patient was recently admitted to the hospital due to possible overdose with her mood stabilizing medications. Patient also reported nausea and vomiting and underwent a EGD which showed esophagitis patient started on PPI and carafate. Symptoms resolved and patient was tolerating PO diet. But since last night patient reports that she cannot keep anything down due to nausea and vomiting, states that everything she eats or drinks comes back up. Reports that she has seen small amounts of blood in her vomit. Report chest discomfort when throwing up. Also reports epigastric abdominal pain. Patient reports that she keeps having loose stool, and about 2-3 BM a day, denies blood in her stool. Internal medicine was consulted. Patient needs to be transferred to a medical floor for continuation of care. Past Med Surg Social Fam HX - Past Medical History Medical history: arthritis, asthma, GERD Psychiatric history: anxiety, bipolar, depression, prior suicide attempt, previous psychiatric hospitalization - Past Surgical History Surgical History: hysterectomy, other Additional surgical history: tonsillectomy - Social History Smoking Status: Current every day smoker Packs per day: 1.5 Smokeless Tobacco Status: No Alcohol use: none Drug use: none - Family History Mother Living Status: Hx Family Endocrine Disorder: Yes (kidney failure) Internal Medicine - H&P: Meds Cholecalciferol (D-3) [Vitamin D] 2,000 unit PO DAILY 09/28/16 [History] Fluticasone Propionate Nasal [Flonase] 50 mcg NS DAILY 09/28/16 [History] Levothyroxine [Synthroid] 50 mcg PO DAILY 09/28/16 [History] Montelukast [Singulair] 10 mg PO DAILY 09/28/16 [History] Propranolol [Inderal] 10 mg PO TID 09/28/16 [History] Acetaminophen [Tylenol] 650 mg PO Q6HR PRN tablet 11/19/17 [Rx] Fluticasone/Salmeterol [Advair 250-50 Diskus] 1 puff IH BID 11/19/17 [History] hydrOXYzine HCl [Hydroxyzine HCl] 50 - 100 mg PO HS PRN 11/19/17 [History] hydrOXYzine HCl [Hydroxyzine HCl] 50 mg PO QAM 11/19/17 [History] Ondansetron ODT [Zofran ODT] 4 mg SL Q6HR PRN #10 tab.rapdis 01/21/18 [Rx] Albuterol Sulfate [Albuterol Inhaler] 2 puff IH Q4H PRN 04/19/18 [History] Gabapentin [Neurontin] 300 mg PO QID 04/19/18 [History] Omeprazole [PriLOSEC] 40 mg PO DAILY 04/19/18 [History] Sucralfate [Carafate] 1 gm PO QIDAC tablet 04/23/18 [Rx] Allergy/AdvReac Type Severity Reaction Status Date / Time aspirin Allergy Hives Verified 01/21/18 16:34 influenza virus vacc Allergy Swelling Verified 01/21/18 16:34 trivalent, split of [From Fluzone] Lip/Tongue/Throat latex Allergy Itching Verified 01/21/18 16:34 Penicillins Allergy Anaphylaxis Verified 01/21/18 16:34 All Systems PM: A 10-system review of systems was performed and is negative for pertinent findings except as documented above in the HPI. - Constitutional Constitutional: malaise, weakness, no chills, no fever(s), no lethargy - EENT Eyes: no irritation Nose, mouth and throat: no dental pain - Cardiovascular Cardiovascular ROS IM: no chest pain, no irregular heart rhythm, no lightheadedness, no palpitations, no paroxysmal nocturnal dyspnea - Respiratory Respiratory: no cough, no dyspnea, no pain on inspiration, no excessive phlegm production - Gastrointestinal Gastrointestinal: abdominal pain, belching, hematemesis, loose stools, nausea, vomiting, no coffee ground emesis, no diarrhea, no hematochezia, no melena - Genitourinary Genitourinary: no difficulty urinating, no dysuria - Musculoskeletal Musculoskeletal ROS IM: no back pain, no neck pain - Integumentary Integumentary IM: no erythema, no rash - Neurological Neurological ROS: no abnormal speech, no behavioral changes - Psychiatric Psychiatric: no auditory hallucinations, no homicidal ideation, no suicidal ideation - Endocrine Endocrine IM: no cold intolerance - Allergic/Immunologic Additional comments: Rest of the review of system negative. - Constitutional Vitals: Temp Pulse Resp BP Pulse Ox 98.3 F 84 18 141/79 95 04/23/18 20:21 04/23/18 20:21 04/23/18 20:21 04/23/18 20:21 04/23/18 20:21 Exam: General: Alert and oriented x4. In moderate distress due to nausea and vomiting. Skin: Normal color, no rash, no lesions. dry oral mucosa. HEENT: EOM, pupils equal, round and reactive. Cardiovascular: RRR, Normal S1 & S2, no rubs, murmurs or gallops. No JVD. Lungs: CTA bilaterally, no wheezes or crackles. Abdomen: Soft, mildly tender to superficial palpation in the epigastrium, no rigidity. Extremities: No deformity, no edema or tenderness, no joint swelling or clubbing. Neurological: Normal cognition and motor skills. Rest of the physical exam is non contributory - Assessment and plan (1) Nausea & vomiting Current Visit: Yes Status: Acute Assessment and plan: Possible due to gastroentiritis vs esophagitis. Plan: NPO start patient on Ondansetron 4mg/IV Q4HR scheduled D5/0.45% @75mls/hr as maintenance fluids Start pantoprazole 40mg/IV daily Continue sucralfate. Consider GI consult if patient continues to have hematemesis CBC, BMP, Mag, phosp and PT/INR Qualifiers: Vomiting type: unspecified Vomiting Intractability: intractable Qualified Code(s): R11.2 - Nausea with vomiting, unspecified (2) Esophagitis Current Visit: No Status: Acute Assessment and plan: plan of care as above. (3) Hematemesis with nausea Current Visit: No Status: Acute Assessment and plan: Plan of care as above. (4) Bipolar disorder Current Visit: No Status: Chronic Assessment and plan: Patient denies suidical or homicidal ideation. Continue mood stabilizing medications as per psych recommendations. Qualifiers: Active/Remission status: currently active Current bipolar episode type: depressed Current episode severity: unspecified Qualified Code(s): F31.30 - Bipolar disorder, current episode depressed, mild or moderate severity, unspecified (5) DVT prophylaxis Current Visit: No Status: Acute Assessment and plan: No chemical DVT prophylaxis due to hematemesis. Mechanical DVT prophylaxis. (6) Hypothyroidism Current Visit: Yes Status: Acute Assessment and plan: Continue Levothyroxine Qualifiers: Hypothyroidism type: unspecified Qualified Code(s): E03.9 - Hypothyroidism, unspecified (7) Diarrhea Current Visit: No Status: Acute Assessment and plan: GI panel Qualifiers: Diarrhea type: unspecified type Qualified Code(s): R19.7 - Diarrhea, unspecified - Time Spent With Patient Total time spent is greater than 50% in coordination of care (as documented) at patient's floor/unit and/or counseling patient: 25 - 35 minutes - VTE Reasons for not Prescribing Prophylaxis: Treatment not Indicated - Low risk for VTE
[2018-04-24] MEDS ORDERED: D5% in 0.45% NACL 1,000 ML IVC SCH (08:30)
[2018-04-24] MEDS ORDERED: Nicotine 21 MG PATCH.TD24 TD SCH (09:00)
[2018-04-24 09:21] VITALS: BP 103/68
== END 2018-04-24 09:45 | disposition other institution (70) ==
LOC: INTOOBSV 13:52 → 1ANU 13:52
PROVIDERS: ADMIT Psychiatry & Neurology Psychiatry; ATTEND Psychiatry & Neurology Psychiatry

== ENCOUNTER 2018-04-24 08:20 | Observation (INO) ==
--- NOTE | 2018-04-24 08:35 | Discharge Summary ---
Date of Encounter: 04/24/18 Time of Encounter: 08:31 History of Present Illness Chief complaint: Suicidal attempt by overdose Admitted From: Intrahospital Transfer (3A) History of Present Illness: Ms. Allen is a 52 year old female admitted from the medical floor on observation status after suicide attempt by overdose on medication including Seroquel Lamictal and tramadol. Please see consult note. Soon after admission patient developed symptoms nausea vomiting, internal medicine was consulted, patient found to have esophagitis, hematemesis. Patient will be transferred to medical floor for further treatment and management. Past Med Surg Social Fam HX - Past Medical History Medical history: arthritis, asthma, GERD - Past Psychiatric History Psychiatric history: Reports: bipolar, depression, prior suicide attempt, previous psychiatric hospitalization - Past Surgical History Surgical History: hysterectomy, other - Social History Smoking Status: Current every day smoker Smokeless Tobacco Status: No Alcohol use: none Drug use: none - Family History Mother Living Status: Hx Family Endocrine Disorder: Yes (kidney failure) Medications - Discharge Medications Cholecalciferol (D-3) [Vitamin D] 2,000 unit PO DAILY 09/28/16 [History] Fluticasone Propionate Nasal [Flonase] 50 mcg NS DAILY 09/28/16 [History] Levothyroxine [Synthroid] 50 mcg PO DAILY 09/28/16 [History] Montelukast [Singulair] 10 mg PO DAILY 09/28/16 [History] Propranolol [Inderal] 10 mg PO TID 09/28/16 [History] Acetaminophen [Tylenol] 650 mg PO Q6HR PRN tablet 11/19/17 [Rx] Fluticasone/Salmeterol [Advair 250-50 Diskus] 1 puff IH BID 11/19/17 [History] hydrOXYzine HCl [Hydroxyzine HCl] 50 - 100 mg PO HS PRN 11/19/17 [History] hydrOXYzine HCl [Hydroxyzine HCl] 50 mg PO QAM 11/19/17 [History] Ondansetron ODT [Zofran ODT] 4 mg SL Q6HR PRN #10 tab.rapdis 01/21/18 [Rx] Albuterol Sulfate [Albuterol Inhaler] 2 puff IH Q4H PRN 04/19/18 [History] Gabapentin [Neurontin] 300 mg PO QID 04/19/18 [History] Omeprazole [PriLOSEC] 40 mg PO DAILY 04/19/18 [History] Sucralfate [Carafate] 1 gm PO QIDAC tablet 04/23/18 [Rx] Allergy/AdvReac Type Severity Reaction Status Date / Time aspirin Allergy Hives Verified 01/21/18 16:34 influenza virus vacc Allergy Swelling Verified 01/21/18 16:34 trivalent, split of [From Fluzone] Lip/Tongue/Throat latex Allergy Itching Verified 01/21/18 16:34 Penicillins Allergy Anaphylaxis Verified 01/21/18 16:34 Review of Systems Psychiatric: Reports: depression Exam - HEENT Head exam IM: Present: atraumatic Eye exam IM: Present: EOMI, normal appearance, PERRL ENT exam IM: Present: normal exam - Neurological Neurological exam: Present: CN II-XII intact - Respiratory Respiratory exam IM: Present: CTAB - GI/Abdominal GI/Abdominal exam IM: Present: normal bowel sounds, soft. Absent: tenderness - Extremities Extremities exam IM: Present: full ROM - Skin Skin exam IM: Present: dry, warm - Constitutional General appearance: age & developmentally appropriate, well-groomed, well- nourished - Musculoskeletal Gait: normal Station: relaxed Strength & Tone: normal for patient - Psychiatric Patient Orientation: Yes Person, Yes Time, Yes Place Level of alertness: Alert Behavior: calm, cooperative, withdrawn Psychomotor activity: Normal Eye Contact: Maintains Eye Contact Mood Description: Euthymic/stable, Depressed Affect description: congruent with mood, constricted Speech Volume: Normal Speech pattern: normal rate, normal rhythm, normal tone, fluent, spontaneous Language & Vocabulary: consistent with education Thought Process: Linear, Goal Oriented Thought Content: No Suicidal ideation, No Homicidal ideation, No Overt delusions Perceptual Disturbances: No Auditory hallucinations, No Visual hallucinations Attention Span Ability: Capable of Focused Attention Memory Description: Grossly Intact Patient Reliability: Reliable Historian Fund of knowledge: Yes abstraction ability, Yes average, Yes aware of current events Intelligence Estimate: Average Judgment: Limited Insight: Partial Diagnosis - Discharge Diagnosis (1) Major depressive disorder, recurrent episode Status: Acute Qualifiers: Major depression episode severity: moderate Qualified Code(s): F33.1 - Major depressive disorder, recurrent, moderate Assessment and Plan - Follow up Plan Disposition: Still a Patient Provider Discharging clinician: [facility] Course Hospital course: Ms. Allen is a 52 year old female admitted on an observation status from the medical floor after an overdose on multiple medication and has been intubated and extubated. Soon after admission patient developed symptoms of nausea and vomiting seen by medical consult with decided to transfer the patient back to medical floor for further treatment and management of esophagitis hematemesis and nausea and vomiting. - Time Spent with Patient Total time spent providing and/or coordinating discharge services: Less than 30 minutes Procedures - Procedures Procedures: Medication Management, Crisis Stabilization, Supportive Therapy, Group Therapy, Psychoeducational Therapy Quality - Multiple Antipsychotics Patient discharged on 2 or more antipsychotic medications: No
[2018-04-24] MEDS ORDERED: Naloxone 0.4 MG/ML INJ IVP PRN (09:58)
[2018-04-24] MEDS ORDERED: traMADol 50 MG TABLET PO PRN (09:58)
--- NOTE | 2018-04-24 10:07 | Internal Med History&Physical ---
Date of Encounter: 04/24/18 Time of Encounter: 10:05 Internal Medicine - H&P: HPI Chief complaint: nause and vomiting. Plans for Post Hospital Care: Home History of present illness: Ms. Allen is a 52 year old female PMH significant for severe bipolar disorder, arthritis, asthma, GERD. Patient was recently admitted to the hospital due to possible overdose with her mood stabilizing medications. Patient also reported nausea and vomiting and underwent a EGD which showed esophagitis patient started on PPI and carafate. Symptoms resolved and patient was tolerating PO diet. But since last night patient reports that she cannot keep anything down due to nausea and vomiting, states that everything she eats or drinks comes back up. Reports that she has seen small amounts of blood in her vomit. Report chest discomfort when throwing up. Also reports epigastric abdominal pain. Patient reports that she keeps having loose stool, and about 2-3 BM a day, denies blood in her stool. Internal medicine was consulted. Patient needs to be transferred to a medical floor for continuation of care. Past Med Surg Social Fam HX - Past Medical History Medical history: arthritis, asthma, GERD Psychiatric history: bipolar, depression, prior suicide attempt, previous psychiatric hospitalization - Past Surgical History Surgical History: hysterectomy, other Additional surgical history: tonsillectomy - Social History Smoking Status: Current every day smoker Smokeless Tobacco Status: No Alcohol use: none Drug use: none - Family History Mother Living Status: Hx Family Endocrine Disorder: Yes (kidney failure) Father Living Status: Cause of : liver failure Internal Medicine - H&P: Meds Cholecalciferol (D-3) [Vitamin D] 2,000 unit PO DAILY 09/28/16 [History] Fluticasone Propionate Nasal [Flonase] 50 mcg NS DAILY 09/28/16 [History] Levothyroxine [Synthroid] 50 mcg PO DAILY 09/28/16 [History] Montelukast [Singulair] 10 mg PO DAILY 09/28/16 [History] Propranolol [Inderal] 10 mg PO TID 09/28/16 [History] Acetaminophen [Tylenol] 650 mg PO Q6HR PRN tablet 11/19/17 [Rx] Fluticasone/Salmeterol [Advair 250-50 Diskus] 1 puff IH BID 11/19/17 [History] hydrOXYzine HCl [Hydroxyzine HCl] 50 - 100 mg PO HS PRN 11/19/17 [History] hydrOXYzine HCl [Hydroxyzine HCl] 50 mg PO QAM 11/19/17 [History] Ondansetron ODT [Zofran ODT] 4 mg SL Q6HR PRN #10 tab.rapdis 01/21/18 [Rx] Albuterol Sulfate [Albuterol Inhaler] 2 puff IH Q4H PRN 04/19/18 [History] Gabapentin [Neurontin] 300 mg PO QID 04/19/18 [History] Omeprazole [PriLOSEC] 40 mg PO DAILY 04/19/18 [History] Sucralfate [Carafate] 1 gm PO QIDAC tablet 04/23/18 [Rx] Allergy/AdvReac Type Severity Reaction Status Date / Time aspirin Allergy Hives Verified 01/21/18 16:34 influenza virus vacc Allergy Swelling Verified 01/21/18 16:34 trivalent, split of [From Fluzone] Lip/Tongue/Throat latex Allergy Itching Verified 01/21/18 16:34 Penicillins Allergy Anaphylaxis Verified 01/21/18 16:34 All Systems PM: A 10-system review of systems was performed and is negative for pertinent findings except as documented above in the HPI. - Constitutional Constitutional: weakness, no chills, no fatigue, no fever(s), no falls - EENT Eyes: no diplopia, no pain Nose, mouth and throat: no bleeding gums, no dental pain - Cardiovascular Cardiovascular ROS IM: no chest pain, no dyspnea on exertion, no irregular heart rhythm, no palpitations - Respiratory Respiratory: no cough, no wheezing, no stridor, no excessive phlegm production - Gastrointestinal Gastrointestinal: abdominal pain, belching, heartburn, loose stools, nausea, vomiting, no diarrhea, no melena - Genitourinary Genitourinary: no abnormal menses, no dysuria, no nocturia - Musculoskeletal Musculoskeletal ROS IM: no back pain, no limited range of motion - Integumentary Integumentary IM: no rash - Neurological Neurological ROS: weakness, no confusion, no lack of coordination - Psychiatric Psychiatric: no auditory hallucinations, no homicidal ideation, no suicidal ideation, no visual hallucinations - Endocrine Endocrine IM: no cold intolerance, no fatigue - Hematologic/Lymphatic Hematologic/Lymphatic: no easy bleeding - Allergic/Immunologic Additional comments: rest of the review of system negative. - Constitutional Exam: General: Alert and oriented x4. In moderate distress due to nausea and vomiting. Skin: Normal color, no rash, no lesions. dry oral mucosa. HEENT: EOM, pupils equal, round and reactive. Cardiovascular: RRR, Normal S1 & S2, no rubs, murmurs or gallops. No JVD. Lungs: CTA bilaterally, no wheezes or crackles. Abdomen: Soft, mildly tender to superficial palpation in the epigastrium, no rigidity. Extremities: No deformity, no edema or tenderness, no joint swelling or clubbing. Neurological: Normal cognition and motor skills. Rest of the physical exam is non contributory Internal Med - H&P Results - Labs CBC & Chem 7: 04/24/18 11:28 04/24/18 11:28 - Assessment and plan (1) Nausea & vomiting Current Visit: No Status: Acute Assessment and plan: Possible due to gastroentiritis vs esophagitis. Plan: NPO start patient on Ondansetron 4mg/IV Q4HR scheduled D5/0.45% @75mls/hr as maintenance fluids Start pantoprazole 40mg/IV daily Continue sucralfate. Consider GI consult if patient continues to have hematemesis CBC, BMP, Mag, phosp and PT/INR Qualifiers: Vomiting type: unspecified Vomiting Intractability: intractable Qualified Code(s): R11.2 - Nausea with vomiting, unspecified (2) Esophagitis Current Visit: No Status: Acute Assessment and plan: plan of care as above. (3) Asthma with COPD Current Visit: No Status: Chronic Assessment and plan: Continue Symbicort and Albuterol nebs Q4RT PNR (4) Hematemesis with nausea Current Visit: No Status: Acute Assessment and plan: plan of care as above. (5) DVT prophylaxis Current Visit: No Status: Acute Assessment and plan: No chemical DVT prophylaxis due to hematemesis. Mechanical DVT prophylaxis. (6) Major depressive disorder, recurrent episode Current Visit: No Status: Chronic Assessment and plan: Patient denies suidical or homicidal ideation. Continue mood stabilizing medications as per psych recommendations. Qualifiers: Major depression episode severity: moderate Qualified Code(s): F33.1 - Major depressive disorder, recurrent, moderate (7) Hypothyroidism Current Visit: No Status: Acute Assessment and plan: Continue Levothyroxine 50mcg/PO daily. Qualifiers: Hypothyroidism type: unspecified Qualified Code(s): E03.9 - Hypothyroidism, unspecified - Time Spent With Patient Total time spent is greater than 50% in coordination of care (as documented) at patient's floor/unit and/or counseling patient: 25 - 35 minutes
[2018-04-24 12:00] LABS: Basophils % 0.4 %; Eosinophils # 0.2 K/mcL (0.0-0.6); Eosinophils % 2.6 %; Hematocrit 35.8 % (35.3-44.9); Hemoglobin 12.1 g/dL (11.5-15.4); Lymphocytes # 1.5 K/mcL (0.6-4.6); Lymphocytes % 18.8 %; Mean Corpuscular HGB Conc 33.8 g/dL (31.6-35.5); Mean Corpuscular Hemoglobin 28.8 pg (28.0-33.3); Mean Corpuscular Volume 85.2 fL (83.0-100.0); Mean Platelet Volume 9.5 fL (9.4-12.4); Monocytes # 0.9 K/mcL (0.0-1.3); Monocytes % 11.6 %; Neutrophils # 5.1 K/mcL (1.6-8.9); Platelet Count 228 K/mcL (140-400); Red Cell Distribution Width 13.2 % (11.5-14.5); Segmented Neutrophils % 65.6 %
[2018-04-24 12:08] LABS: INR 1.1; Prothrombin Time 12.1 Seconds (9.4-12.1)
[2018-04-24 12:10] LABS: Activated Partial Thrombo Time 32.5 Seconds (26.0-36.0)
[2018-04-24 12:19] LABS: Magnesium 2.1 mg/dL (1.6-2.6); Phosphorous 3.1 mg/dL (2.7-4.5)
[2018-04-24 12:20] LABS: BUN/Creatinine Ratio 15 (6-26); Blood Urea Nitrogen 10 mg/dL (6-20); Calcium 9.4 mg/dL (8.6-10.3); Carbon Dioxide 23 mEq/L (23-29); Chloride 102 mEq/L (98-107); Glucose 124 mg/dL (70-105); Osmolality,Calculated 284 (280-300); Sodium 137 mEq/L (136-145); eGFR For Non-African Americans > 60 (> 60)
[2018-04-24] MEDS: Sucralfate 1 GM TABLET PO SCH ×3 (12:49→20:18)
[2018-04-24] MEDS: D5% in 0.45% NACL 1,000 ML IVC SCH (13:32)
[2018-04-24] MEDS: Pantoprazole 40 MG VIAL IVP SCH (13:36)
[2018-04-24] MEDS: Ondansetron 4 MG/2 ML VIAL IVP SCH ×2 (13:39→17:01)
[2018-04-24] MEDS ORDERED: Potassium Chloride 40 MEQ, Lidocaine 1% 2 ML in D5% in Water 500 ML IVPB ONE (14:56)
[2018-04-24] MEDS ORDERED: Budesonide/Formoterol 80/4.5 MDI IH SCH (22:00)
[2018-04-25] MEDS: Ondansetron 4 MG/2 ML VIAL IVP SCH ×2 (00:57→06:03)
[2018-04-25] MEDS: Pantoprazole 40 MG VIAL IVP SCH (07:40)
[2018-04-25] MEDS: D5% in 0.45% NACL 1,000 ML IVC SCH (07:40)
[2018-04-25] MEDS: Sucralfate 1 GM TABLET PO SCH (07:40)
[2018-04-25] MEDS ORDERED: Nicotine 21 MG PATCH.TD24 TD SCH (09:00)
[2018-04-25 11:47] VITALS: BP 99/65
--- NOTE | 2018-04-25 11:58 | Discharge Summary ---
- NOTES TO OUTPATIENT PROVIDER Notes to Outpatient Provider: f/u with PCP in one week. f/u with Psych / Behavioral health as scheduled before. Stay away from fried food Date of Encounter: 04/25/18 Time of Encounter: 11:35 - Discharge Diagnosis (1) Nausea & vomiting Priority: Primary Status: Acute Qualifiers: Vomiting type: unspecified Vomiting Intractability: intractable Qualified Code(s): R11.2 - Nausea with vomiting, unspecified (2) Esophagitis Priority: Primary Status: Acute (3) Major depressive disorder, recurrent episode Priority: Secondary Status: Chronic Qualifiers: Major depression episode severity: moderate Qualified Code(s): F33.1 - Major depressive disorder, recurrent, moderate (4) Asthma with COPD Priority: Secondary Status: Chronic (5) Hypothyroidism Priority: Secondary Status: Acute Qualifiers: Hypothyroidism type: unspecified Qualified Code(s): E03.9 - Hypothyroidism, unspecified (6) DVT prophylaxis Priority: Secondary Status: Acute (7) Hematemesis with nausea Priority: Secondary Status: Acute Hospital course: Ms. Allen is a 52 year old female H significant for severe bipolar disorder, arthritis, asthma, GERD. Patient was recently admitted to the hospital due to possible overdose with her mood stabilizing medications. Patient also reported nausea and vomiting and underwent a EGD which showed esophagitis patient started on PPI and carafate. Symptoms resolved and patient was tolerating PO diet. But since last night patient reports that she cannot keep anything down due to nausea and vomiting, states that everything she eats or drinks comes back up. Pt was admitted in the hospital from 1[facility], placed her on NPO, IV hydration. Her symptoms improved. She is tolerating PO intake well today. She is alert, awake and O x 3. Denied any suicidal ideation. Denied any depression. Talked [facility] staff, they cleared her to d/c home. So will d/c her home in stable condition today. - Time Spent with Patient Total time spent providing and/or coordinating discharge services: - Discharge Medications Prescriptions: Nicotine Patch [Nicoderm] 21 mg TD DAILY #30 patch.[id number] Sucralfate [Carafate] 1 gm PO QIDAC #120 tablet Home Medications: Cholecalciferol (D-3) [Vitamin D] 2,000 unit PO DAILY 09/28/16 [History] Levothyroxine [Synthroid] 50 mcg PO DAILY 09/28/16 [History] Montelukast [Singulair] 10 mg PO DAILY 09/28/16 [History] Propranolol [Inderal] 10 mg PO TID 09/28/16 [History] Fluticasone/Salmeterol [Advair 250-50 Diskus] 1 puff IH BID PRN 11/19/17 [History] Albuterol Sulfate [Albuterol Inhaler] 2 puff IH Q4H PRN 04/19/18 [History] Gabapentin [Neurontin] 600 mg PO BID 04/19/18 [History] Omeprazole [PriLOSEC] 40 mg PO DAILY 04/19/18 [History] Acetaminophen [Tylenol] 650 mg PO Q12H PRN 04/25/18 [History] Desvenlafaxine Succinate [Pristiq] 100 mg PO DAILY 04/25/18 [History] HydrOXYzine Pamoate [Vistaril] 50 mg PO DAILY 04/25/18 [History] Meloxicam 15 mg PO DAILY 04/25/18 [History] Nicotine Patch [Nicoderm] 21 mg TD DAILY #30 patch.td24 04/25/18 [Rx] Quetiapine Fumarate [Seroquel] 200 mg PO HS 04/25/18 [History] Sucralfate [Carafate] 1 gm PO QIDAC #120 tablet 04/25/18 [Rx] Topiramate [Topamax] 100 mg PO BID 04/25/18 [History] lamoTRIgine [Lamotrigine] 200 mg PO HS 04/25/18 [History] Allergies/Adverse Reactions: Allergy/AdvReac Type Severity Reaction Status Date / Time aspirin Allergy Hives Verified 04/25/18 10:04 influenza virus vacc Allergy Swelling Verified 04/25/18 10:04 trivalent, split of [From Fluzone] Lip/Tongue/Throat latex Allergy Itching Verified 04/25/18 10:04 Penicillins Allergy Anaphylaxis Verified 04/25/18 10:04 Date of admission: 04/24/18 09:56 Primary care physician: PCP NONE Consults: 04/24/18 12:17 Consult to Invasive Line Access Team [CONS] Routine Reason for Consult: epiv placement Line Type: EPIV - Constitutional Vitals: Temp Pulse Resp BP Pulse Ox 97.9 F 79 15 95/68 95 04/25/18 07:29 04/25/18 07:29 04/25/18 07:29 04/25/18 07:29 04/25/18 07:40 General appearance: Present: A&O X 3, no acute distress, answers questions appropriately Exam: see below - Head Head exam: Present: atraumatic, normal inspection - Neck Neck exam general surgery: Present: supple - Respiratory Respiratory exam: Present: decreased breath sounds. Absent: rales, respiratory distress, rhonchi, wheezes - Cardiovascular Cardiovascular exam: Present: RRR, +S1, +S2. Absent: tachycardia - GI/Abdominal GI/Abdominal exam: Present: normal bowel sounds, soft. Absent: rebound, rigid, tenderness - Extremities Exam Extremities exam: Absent: calf tenderness, pedal edema, tenderness - Back Exam Back exam: Absent: CVA tenderness (L), CVA tenderness (R) - Neurological Exam Neurological exam: Present: alert, oriented X3 - Psychiatric Psychiatric exam: Present: normal affect, normal mood - Skin Skin exam: Absent: rash - Patient Status Disposition: Home, Self-Care Condition: Good Overall status at discharge: patient is back to baseline - Discharge Instructions Follow Up With: NONE,PCP [Primary Care Provider] - - Diet and Activity Activity: increase activity as tolerated Diet: low salt diet
== END 2018-04-25 13:45 | disposition home or self-care (01) ==
LOC: 3BNU
PROVIDERS: ADMIT Internal Medicine; ATTEND Internal Medicine